=== PATIENT | male | born 1945 | race Caucasian/White ===

== ENCOUNTER → 2018-06-03 | Day surgery (SDC) | payer MEDICARE, OTHER ==
[2018-05-31 15:57] LABS: BASOPHILS % 0.3 % (0.0-1.0); EOSINOPHILS # (AUTO) 0.3 (0.0-0.4); EOSINOPHILS % 4.5 % (0.0-6.0); HEMATOCRIT 40.9 % (38.2-49.6); HEMOGLOBIN 14.5 g/dL (14.0-18.0); LYMPHOCYTES # (AUTO) 2.1 (1.0-3.2); LYMPHOCYTES % 35.2 % (18.0-39.1); MEAN CORPUSCULAR HEMOGLOBIN 38.7 pg (28-32); MEAN CORPUSCULAR HGB CONC 35.5 g/dL (31-35); MEAN CORPUSCULAR VOLUME 109.1 fL (81-99); MONOCYTES # (AUTO) 0.5 (0.2-0.8); MONOCYTES % 8.7 % (4.4-11.3); NEUTROPHILS # (AUTO) 3.1 (2.1-6.9); PLATELET COUNT 166 x10e3/uL (140-360); RED BLOOD COUNT 3.75 x10e6/uL (4.3-5.7); RED CELL DISTRIBUTION WIDTH 13.5 % (11.7-14.4)
[2018-05-31 16:04] LABS: INR 0.89; PROTHROMBIN TIME 12.9 seconds (11.9-14.5)
[2018-05-31 16:17] LABS: ALBUMIN 3.8 g/dL (3.5-5.0); ALBUMIN/GLOBULIN RATIO 1.2 (0.8-2.0); ANION GAP 15.5 mmol/L (8-16); CALCIUM 9.6 mg/dL (8.4-10.2); CHOL/HDL RATIO 4.3 (3.9-4.7); CREATININE, SERUM 1.35 mg/dL (0.72-1.25); POTASSIUM 4.5 mmol/L (3.5-5.1)
[2018-06-03] VITALS (12 sets, daily range): BP systolic 104–135; BP diastolic 67–88
[~2018-06-03] VITALS: Ht 177.8 cm; Wt 99.8 kg
[~2018-06-03] MED LIST: ALLOPURINOL300 MG PO; ASPIRIN 325 MG TAB ONE; COMBIVIR TABLE1 EACH PO; ENTRESTO PO; FENTANYL CITRATE/PF 100MCG/2 ML INJ ONE; HEPARIN SOD/SOD CHLORIDE 2,000 ML ONE; INTELENCE200 MG PO; IOPAMIDOL 370 MG/ML 200 ML INFUS..BTL INJ ONE; KEFLEX500 MG PEG; KEFLEX500 MG PO; LASIX40 MG PO; LEVAQUIN500 MG PO; LIDOCAINE HCL 2% LOCAL 20 ML VIAL ONE; LIPITOR20 MG PO; LISINOPRIL2.5 MG PO; LOPID600 MG PO; LOVAZA1 GM PO; METOPROLOL SUCC25 MG PO; MIDAZOLAM HCL 2 MG/2 ML VIAL ONE; MULTI VITAMIN PO; NEXIUM20 MG PO; NORVIR100 MG PO; POTASSIUM CHLO20 ME1 PO; PREDNISONE10 MG PO; PREDNISONE20 MG PO; PREDNISONE5 MG; ROPINIROLE HC0.25 MG PO; SODIUM CHLORIDE 0.9% 1000ML 1,000 ML ONE; TICAGRELOR 90 MG TABLET ONE; VALACYCLOVIR500 MG PO; VERAPAMIL HCL 2.5 MG/ML 2 ML VIAL ONE; [UNRECOGNIZED DRUG - OTHER] PO
--- OUTSIDE RECORDS SUMMARY | 2018-06-03 09:27 | XMS REPORT ---
Author Author Admin, Karthaus Organization [facility] Address Unknown Phone Unavailable Allergies, Adverse Reactions, Alerts Allergy Name Reaction Description Start Date Severity Status Provider HLA [id number] Positive Critical Active Lexigeorgette Bernard Conditions or Problems Problem Name Problem Code Onset Date Status Entry Date Provider Comment Standard Description Annotate Screening for venereal disease V74.5 Active Shanta ROWLEY Screening examination for venereal disease Elevated prostate specific antigen PSA 790.93 Active Shanta WILKERSONP Elevated prostate specific antigen [PSA] CHF 428.0 Active Shanta Li TRIM OPERATOR Congestive heart failure, unspecified L ventricle severely impaired with EF < 20% R ventricular pacemaker Gout 274.9 Active Shanta Li TRIM OPERATOR Gout, unspecified Preventive health care V70.0 Active Shanta Li TRIM OPERATOR Routine general medical examination at a health care facility Screening for hepatitis C V73.89 Active Shanta Limary ROWLEY Screening examination for other specified viral diseases Nephrolithiasis, hx of 592.0 Active Shanta Li TRIM OPERATOR Calculus of kidney Pacemaker, 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 Shanta WILKERSONP Cardiac pacemaker in situ DIETARY SURVEILLANCE AND COUNSELING V65.3 Active Shanta ROWLEY Dietary surveillance and counseling OBESITY 278.00 Active Shanta WILKERSONP Obesity, unspecified AMBLYOPIA, LEFT 368.00 01/03/2012 Active [facility] Amblyopia, unspecified ASTIGMATISM 367.20 01/03/2012 Active [facility] Astigmatism, unspecified CATARACT, NUCLEAR, BILATERAL 366.04 01/03/2012 Active [facility] Nuclear cataract MILD - No tx needed HYPEROPIA 367.0 01/03/2012 Active [facility] Hypermetropia PRESBYOPIA 367.4 01/03/2012 Active [facility] Presbyopia 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 Lexi Bernard Unspecified hearing loss HIV INFECTION/AIDS 042 1994 Active Lexi Bernard Human immunodeficiency virus [HIV] disease HYPERLIPIDEMIA 272.4 Active [facility] Other and unspecified hyperlipidemia HYPERTENSION 401.1 Active [facility] Benign essential hypertension Rule out CMV RETINITIS 01/03/2012 Correction Kranthi Lai MD Chorioretinitis, 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 Depression 311 Inactive Shanta WILKERSONP Depressive disorder, not elsewhere classified Depression ICD-311 Inactive Shanta WILKERSONP CHF 428.0 Inactive Shanta WILKERSONP Congestive heart failure, unspecified Screening for venereal disease V74.5 Inactive Shanta WILKERSONP Screening examination for venereal disease Screening for venereal disease ICD-V74.5 Inactive Shanta WILKERSONP Screening for vitamin D deficiency V77.99 Inactive Shanta WILKERSONP Screening for other and unspecified endocrine, nutritional, metabolic, and immunity disorders Screening for vitamin D deficiency ICD-V77.99 Inactive Shanta WILKERSONP RENAL INSUFFICIENCY ICD-593.9 Inactive Shanta WILKERSONP CHOLELITHIASIS ICD-574.20 Inactive Shanta WILKERSONP 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 Kranthi Lai MD 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 Inactive Shanta WILKERSONP NEPHROLITHIASIS ICD-592.0 Inactive Shanta Li TRIM OPERATOR PSA, INCREASED 790.93 2007 Inactive Shanta WILKERSONP Elevated prostate specific antigen [PSA] PSA, INCREASED ICD-790.93 Inactive Shanta WILKERSONP RENAL INSUFFICIENCY 593.9 Resolved Shanta Li TRIM OPERATOR Unspecified disorder of kidney and ureter CHOLELITHIASIS 574.20 Resolved Shanta Li TRIM OPERATOR Calculus of gallbladder without mention of cholecystitis, without mention of obstruction HERPES ZOSTER [facility] PARAPARESIS 053.9 11/2007 Resolved Shanta Li TRIM OPERATOR Herpes zoster without mention of complication NEPHROLITHIASIS 592.0 2008 Resolved Shanta WILKERSONP Calculus of kidney Medication List Medication Instructions Start Date Stop Date Generic Name NDC Status Provider Patient Instruction ATORVASTATIN CALCIUM 10 MG ORAL TABLET 1 tab By Mouth Every Day ATORVASTATIN CALCIUM 01320858199 Active Shanta WILKERSONP Active ENTRESTO 49-51 MG ORAL TABLET 1 tab By Mouth Every Day SACUBITRIL-VALSARTAN 96350932615 Active Shanta WILKERSONP Active ALLOPURINOL 300 MG ORAL TABLET 1 by mouth every day ALLOPURINOL 56695524156 Active Shanta WILKERSONP Active METOPROLOL SUCCINATE ER 25 MG ORAL TABLET EXTENDED RELEASE 24 HOUR 1 tab by mouth daily METOPROLOL SUCCINATE 62885428851 Active Shanta WILKERSONP Active REQUIP 0.25 MG ORAL TABLET 2 tabs By Mouth take at bedtime ROPINIROLE HCL 39905609003 Active Shanta Li TRIM OPERATOR Active FUROSEMIDE 40 MG ORAL TABLET 1 by mouth every am FUROSEMIDE 63139466393 Active Shanta Li TRIM OPERATOR Active LOVAZA 1 GM ORAL CAPSULE Take 2 capsules by mouth twice daily [id number]-[id number] ETHYL ESTERS 02039390459 Active Shanta Li TRIM OPERATOR Active INTELENCE 200 MG ORAL TABLET 1 tab By Mouth Twice a Day ETRAVIRINE 49468543556 Active Shanta WILKERSONP Active COMBIVIR 150-300 MG ORAL TABLET take 1/2 tablet By Mouth Every Day LAMIVUDINE-ZIDOVUDINE 70168178657 Active Shanta WILKERSONP Active VALACYCLOVIR HCL 500 MG ORAL TABLET 1 By Mouth Every Day VALACYCLOVIR HCL 27569448209 Active Shanta WILKERSONP Active INVIRASE 500 MG ORAL TABLET 2 By Mouth Twice a Day SAQUINAVIR MESYLATE 29416516582 Active Shanta WILKERSONP Active NORVIR 100 MG ORAL TABLET 1 By Mouth Every Day Ritonavir 62262255993 Active Shanta ROWLEY Active METOPROLOL SUCCINATE ER 25 MG ORAL TABLET EXTENDED RELEASE 24 HOUR 1 tab by mouth daily METOPROLOL SUCCINATE ER 25 MG ORAL TABLET EXTENDED RELEASE 24 HOUR METOPROLOL SUCCINATE Inactive LIPITOR 10 MG ORAL TABLET 1 by mouth every pm LIPITOR 10 MG ORAL TABLET 560765 ATORVASTATIN CALCIUM Inactive LOPID 600 MG ORAL TABLET 1 tab By Mouth Twice a Day LOPID 600 MG ORAL TABLET 862242 GEMFIBROZIL Inactive LOVAZA 1 GM ORAL CAPSULE 2 tabs By Mouth Twice a Day LOVAZA 1 GM ORAL CAPSULE 189244 LVEAT-9-IQAA ETHYL ESTERS Inactive LISINOPRIL 2.5 MG ORAL TABLET 1 By Mouth Every Day LISINOPRIL 2.5 MG ORAL TABLET 627851 LISINOPRIL Inactive NEXIUM 20 MG ORAL CAPSULE DELAYED RELEASE 1 by mouth daily NEXIUM 20 MG ORAL CAPSULE DELAYED RELEASE 516277 ESOMEPRAZOLE MAGNESIUM Inactive EPIVIR 150 MG ORAL TABLET 1 By Mouth Every Day EPIVIR 150 MG ORAL TABLET 322576 LAMIVUDINE Inactive METOPROLOL SUCCINATE ER 25 MG ORAL TABLET EXTENDED RELEASE 24 HOUR 1 tab by mouth daily METOPROLOL SUCCINATE 93724413015 No Longer Active Shanta WILKERSONP Active LIPITOR 10 MG ORAL TABLET 1 by mouth every pm ATORVASTATIN CALCIUM 92941165660 No Longer Active Shanta WILKERSONP Active LOPID 600 MG ORAL TABLET 1 tab By Mouth Twice a Day GEMFIBROZIL 84227469209 No Longer Active Shanta WILKERSONP Active LOVAZA 1 GM ORAL CAPSULE 2 tabs By Mouth Twice a Day QQYZA-9-IBGS ETHYL ESTERS 99598394721 No Longer Active Marcelle Baig Active TRICOR 145 MG ORAL TABLET 1 By Mouth Every Day FENOFIBRATE 15568896821 No Longer Active Shanta WILKERSONP Active LISINOPRIL 2.5 MG ORAL TABLET 1 By Mouth Every Day LISINOPRIL 54789759380 No Longer Active Shanta WILKERSONP Active NEXIUM 20 MG ORAL CAPSULE DELAYED RELEASE 1 by mouth daily ESOMEPRAZOLE MAGNESIUM 01048830629 No Longer Active Shanta WILKERSONP Active EPIVIR 150 MG ORAL TABLET 1 By Mouth Every Day LAMIVUDINE 61842682288 No Longer Active Shanta WILKERSONP Active Advance Directives Directive Description Start Date POWER OF HOUSEKEEPER Immunizations Vaccine Administration Date Value Standard Description PEDIATRIC PNEUMOCOCCAL VACCINE ([id number]) #1 given pneumococcal conjugate vaccine, 13 valent Tetanus toxoid, reduced diphtheria toxoid and acellular Pertussis vaccine, absorbed (TdaP) given given tetanus toxoid, reduced diphtheria toxoid, and acellular pertussis vaccine, adsorbed pneumococcal immunization administered given pneumococcal polysaccharide vaccine, 23 valent influenza immunization (Flu Vax) has been administered transcribed from official record influenza virus vaccine, unspecified formulation dT (Diphtheria and Tetanus) immunization for children, #1 transcribed from official record Td(adult) unspecified formulation pneumococcal immunization administered transcribed from official record pneumococcal polysaccharide vaccine, 23 valent H1N1 Swine flu vaccine #1 transcribed from official record Novel [id number], all formulations influenza immunization (Flu Vax) has been administered transcribed from official record influenza virus vaccine, unspecified formulation Vital Signs Date Name Value Unit Range Description blood pressure, diastolic 70 mm[Hg] BP gutierrez blood pressure, systolic 105 mm[Hg] BP sys height E&M 70 [in_us] Bdy height pulse rate E&M 78 /min Heart rate temperature E&M 97.9 [degF] Body temperature weight E&M 220 [lb_av] Weight Measured blood pressure, diastolic 66 mm[Hg] BP gutierrez blood pressure, systolic 103 mm[Hg] BP sys height E&M 70 [in_us] Bdy height pulse rate E&M 76 /min Heart rate temperature E&M 98.0 [degF] Body temperature weight E&M 226 [lb_av] Weight Measured Diagnostic Results Date Name Value Unit Range Description Lab Report: Comp. Metabolic Panel (14), Urinalysis, Routine, Microscopic ... - Urinalysis pH, urine, semiquantitative 6.0 5.0-7.5 Lab Report: CD4/CD8 Ratio Profile, Comp. Metabolic Panel (14), Lipid Jenkins ... - Chemistry urea nitrogen, blood 24 mg/dL 8-27 Lab Report: CD4/CD8 Ratio Profile, Lipid Panel, RNA, Real Time PCR (Grap ... - Hematology T-helper cells (CD4) as percent of blood lymphocytes 24.5 % 30.8-58.5 Lab Report: CD4/CD8 Ratio Profile, Comp. Metabolic Panel (14), Lipid Jenkins ... - Chemistry creatinine, serum 1.22 mg/dL 0.76-1.27 Lab Report: CD4/CD8 Ratio Profile, Lipid Panel, RNA, Real Time PCR (Grap ... - Hematology mean corpuscular volume, RBC 110 fL 79-97 Lab Report: CD4/CD8 Ratio Profile, Lipid Panel, RNA, Real Time PCR (Grap ... - Chemistry triglyceride, serum, fasting 272 mg/dL 0-149 Lab Report: Lipid Panel, Panel [id number], Panel [id number], PSA, Serum (Serial ... - Serology HIV-1/HIV-2 Ab, serum Repeatedly Reactive Non Reactive Lab Report: CD4/CD8 Ratio Profile, Comp. Metabolic Panel (14), Lipid Jenkins ... - Chemistry protein, total, serum 6.6 g/dL 6.0-8.5 Lab Report: CD4/CD8 Ratio Profile, Lipid Panel, RNA, Real Time PCR (Grap ... - Chemistry HDL cholesterol, serum 30 mg/dL >39 Lab Report: Comp. Metabolic Panel (14), Urinalysis, Routine, Microscopic ... - Urinalysis mucus on urinalysis Present Not Estab. glucose, urine, semiquantitative Negative Negative Lab Report: CD4/CD8 Ratio Profile, Comp. Metabolic Panel (14), Lipid Jenkins ... - Chemistry hepatitis B surface antigen Negative Negative Lab Report: Comp. Metabolic Panel (14), Creatinine Clearance, Protein To ... - Chemistry creatinine clearance, urine 86 mL/min (97-137) Lab Report: CD4/CD8 Ratio Profile, Lipid Panel, RNA, Real Time PCR (Grap ... - Hematology monocytes as percent of blood leukocytes 8 % Not Estab. Lab Report: CD4/CD8 Ratio Profile, Comp. Metabolic Panel (14), Lipid Jenkins ... - Hematology Quantiferon Gold TB blood test for tuberculosis screening Negative Negative Lab Report: CD4/CD8 Ratio Profile, Lipid Panel, RNA, Real Time PCR (Grap ... - Chemistry prostate specific antigen 4.3 ng/mL 0.0-4.0 Lab Report: CD4/CD8 Ratio Profile, Lipid Panel, RNA, Real Time PCR (Grap ... - Hematology T-suppressor cells (CD8) as percent of blood lymphocytes 41.9 % 12.0-35.5 Lab Report: Comp. Metabolic Panel (14), Urinalysis, Routine, Microscopic ... - Urinalysis bacteria, urine microscopy None seen None seen/Few Lab Report: Protein Total, Qn, 24-Hr Urine - Urinalysis protein, total, urine, 24 hour 226.5 mg/24h 30.0-150.0 Lab Report: CD4/CD8 Ratio Profile, Comp. Metabolic Panel (14), Lipid Jenkins ... - Chemistry albumin, serum 4.4 g/dL 3.5-4.8 Lab Report: Comp. Metabolic Panel (14), Urinalysis, Routine, Microscopic ... - Urinalysis urobilinogen, urine, semiquantitative (dipstick) 0.2 0.0-1.9 Lab Report: CD4/CD8 Ratio Profile, Comp. Metabolic Panel (14), Lipid Jenkins ... - Chemistry calcium, serum 9.2 mg/dL 8.6-10.2 Internal Correspondence: Pre-Visit Planning: F/U 02/15/17@10:15AM-confirmed - CC care clinical team lead #1, name [facility]-Ulises Wiseman MD / LIZZETTE Hendricks FNP / LIZZETTE Storm FNP / LIZZETTE Diaz MD / Edwige Vallejo MA Lab Report: Comp. Metabolic Panel (14), Urinalysis, Routine, Microscopic ... - Urinalysis WBC urine on microscopy >30 /hpf {Cells}/[HPF] 0 - 5 Lab Report: CD4/CD8 Ratio Profile, Lipid Panel, RNA, Real Time PCR (Grap ... - Hematology lymphocytes as percent of blood leukocytes 31 % Not Estab. Lab Report: CD4/CD8 Ratio Profile, Comp. Metabolic Panel (14), RNA, Real ... - Serology rapid plasma reagin antibody, serum Non Reactive Non Reactive Lab Report: Chlamydia/GC Amplification - Lab chlamydia DNA probe Negative Negative Lab Report: CD4/CD8 Ratio Profile, Comp. Metabolic Panel (14), Lipid Jenkins ... - Chemistry sodium, serum 144 mmol/L 134-144 Lab Report: Chlamydia/GC Amplification - Microbiology Neisseria gonorrhoeae DNA probe Negative Negative Lab Report: CD4/CD8 Ratio Profile, Comp. Metabolic Panel (14), Lipid Jenkins ... - Chemistry hemoglobin A1C, blood, as % of total hemoglobin 4.9 % 4.8-5.6 Lab Report: Comp. Metabolic Panel (14), Creatinine Clearance, Protein To ... - Chemistry creatinine, urine, 24 hour 2034.5 mg/24h (1000.0-2000.0) Lab Report: CD4/CD8 Ratio Profile, Comp. Metabolic Panel (14), Lipid Jenkins ... - Chemistry alkaline phosphatase, serum 67 U/L 39-117 Lab Report: CD4/CD8 Ratio Profile, Lipid Panel, RNA, Real Time PCR (Grap ... - Hematology T-helper cells (CD4) count 368 /UL uL 359-1519 Lab Report: Lipid Panel, Panel [id number], Panel [id number], PSA, Serum (Serial ... - Genetics/fertility HIV-1 gp41 antibody, serum Present Lab Report: CD4/CD8 Ratio Profile, Comp. Metabolic Panel (14), Lipid Jenkins ... - Chemistry bilirubin, serum, total 0.7 mg/dL 0.0-1.2 Lab Report: Comp. Metabolic Panel (14), Creatinine Clearance, Protein To ... - Chemistry creatinine, random, urine 123.3 mg/dL (22.0-328.0) Lab Report: CD4/CD8 Ratio Profile, Lipid Panel, RNA, Real Time PCR (Grap ... - Hematology neutrophils as percent of blood leukocytes 52 % Not Estab. Lab Report: RNA, Real Time PCR (Graph) - Chemistry HIV-1 RNA (log 10) 1.903 [id number]/mL Lab Report: CD4/CD8 Ratio Profile, Comp. Metabolic Panel (14), Lipid Jenkins ... - Chemistry potassium, serum 4.2 mmol/L 3.5-5.2 Lab Report: CD4/CD8 Ratio Profile, Comp. Metabolic Panel (14), Lipid Jenkins ... - Serology toxoplasma gondii antibody, IgG <3.0 0.0-7.1 Lab Report: Comp. Metabolic Panel (14), Urinalysis, Routine, Microscopic ... - Urinalysis urine color Yellow Yellow Lab Report: CD4/CD8 Ratio Profile, Lipid Panel, RNA, Real Time PCR (Grap ... - Chemistry absolute CD8 629 109-897 Lab Report: Comp. Metabolic Panel (14), Urinalysis, Routine, Microscopic ... - Urinalysis cast type, urinalysis Hyaline casts N/A Lab Report: CD4/CD8 Ratio Profile, Comp. Metabolic Panel (14), Lipid Jenkins ... - Serology hepatitis C antibody, serum <0.1 0.0-0.9 Lab Report: CD4/CD8 Ratio Profile, Lipid Panel, RNA, Real Time PCR (Grap ... - Hematology lymphocyte count, blood, automated 1.5 X10E3/UL 10*3/mm3 0.7-3.1 Lab Report: Comp. Metabolic Panel (14), Urinalysis, Routine, Microscopic ... - Urinalysis epithelial cells, urine 0-10 /[LPF] 0 - 10 bilirubin, urine Negative Negative Lab Report: CD4/CD8 Ratio Profile, Lipid Panel, RNA, Real Time PCR (Grap ... - Serology HIV-1RNA, serum, by PCR, quantitative <20 copies/mL {Copies}/mL Lab Report: CD4/CD8 Ratio Profile, Comp. Metabolic Panel (14), Lipid Jenkins ... - Chemistry chloride, serum 103 mmol/L 96-106 Lab Report: CD4/CD8 Ratio Profile, Lipid Panel, RNA, Real Time PCR (Grap ... - Hematology erythrocyte (RBC) count 3.80 X10E6/UL 10*6/mm3 4.14-5.80 Lab Report: CD4/CD8 Ratio Profile, Comp. Metabolic Panel (14), Lipid Jenkins ... - Chemistry Estimated Glomerular Filtration Rate (calc) 59 mL/min/1.73m2 >59 Lab Report: CD4/CD8 Ratio Profile, Lipid Panel, RNA, Real Time PCR (Grap ... - Hematology platelet count 162 X10E3/UL 10*3/mm3 150-379 Lab Report: Comp. Metabolic Panel (14), Urinalysis, Routine, Microscopic ... - Urinalysis appearance, urine Cloudy Clear Lab Report: CD4/CD8 Ratio Profile, Lipid Panel, RNA, Real Time PCR (Grap ... - Hematology red blood cell distribution width 13.5 % 12.3-15.4 Lab Report: Comp. Metabolic Panel (14), Urinalysis, Routine, Microscopic ... - Chemistry specific gravity, body fluid 1.024 1.005-1.030 Lab Report: CD4/CD8 Ratio Profile, Comp. Metabolic Panel (14), Lipid Jenkins ... - Chemistry albumin/globulin ratio, serum 2.0 1.2-2.2 Lab Report: CD4/CD8 Ratio Profile, Lipid Panel, RNA, Real Time PCR (Grap ... - Hematology eosinophils as percent of blood leukocytes 9 % Not Estab. Lab Report: CD4/CD8 Ratio Profile, Comp. Metabolic Panel (14), Lipid Jenkins ... - Microbiology hepatitis A antibody, total Positive Negative Lab Report: CD4/CD8 Ratio Profile, Lipid Panel, RNA, Real Time PCR (Grap ... - Chemistry Absolute Neutrophils 2.5 X10E3/UL 10*3/uL 1.4-7.0 Lab Report: CD4/CD8 Ratio Profile, Lipid Panel, RNA, Real Time PCR (Grap ... - Hematology basophil count, absolute 0.0 x10E3/uL 0.0-0.2 Lab Report: CD4/CD8 Ratio Profile, Comp. Metabolic Panel (14), Lipid Jenkins ... - Chemistry alanine aminotransferase (SGPT), serum 19 U/L 0-44 Lab Report: CD4/CD8 Ratio Profile, Lipid Panel, RNA, Real Time PCR (Grap ... - Chemistry LDL cholesterol, serum 65 mg/dL 0-99 Lab Report: Lipid Panel, Panel [id number], Panel [id number], PSA, Serum (Serial ... - Serology HIV-1 antibody, western blot, serum Positive Lab Report: CD4/CD8 Ratio Profile, Lipid Panel, RNA, Real Time PCR (Grap ... - Chemistry CD4/CD8 ratio 0.58 0.92-3.72 Lab Report: Comp. Metabolic Panel (14), Urinalysis, Routine, Microscopic ... - Urinalysis casts, urine Present /[LPF] None seen Lab Report: CD4/CD8 Ratio Profile, Lipid Panel, RNA, Real Time PCR (Grap ... - Chemistry cholesterol, serum 149 mg/dL 100-199 Office Visit: Adult Followup Room #5 Ready - Hematology T-helper cells (CD4) count, lowest absolute value 6 Lab Report: Comp. Metabolic Panel (14), Urinalysis, Routine, Microscopic ... - Basic Occult Blood, urine 3+ Negative Lab Report: CD4/CD8 Ratio Profile, Lipid Panel, RNA, Real Time PCR (Grap ... - Hematology mean corpuscular hemoglobin concentration, RBC 34.8 G/DL % 31.5-35.7 hemoglobin, blood 14.6 g/dL 13.0-17.7 Lab Report: Comp. Metabolic Panel (14), Urinalysis, Routine, Microscopic ... - Urinalysis leukocyte esterase, urine, by dipstick 3+ Negative urinalysis, microscopic examination See below: Lab Report: CD4/CD8 Ratio Profile, Lipid Panel, RNA, Real Time PCR (Grap ... - Hematology leukocyte count, blood 4.8 X10E3/UL 10*3/mm3 3.4-10.8 Lab Report: CD4/CD8 Ratio Profile, Comp. Metabolic Panel (14), Urinalysi ... - Urinalysis Crystal Type, Urine Amorphous Sediment N/A Lab Report: Comp. Metabolic Panel (14), Urinalysis, Routine, Microscopic ... - Urinalysis protein, urine, semiquantitative (dipstick) 2+ Negative/Trace Lab Report: CD4/CD8 Ratio Profile, Lipid Panel, RNA, Real Time PCR (Grap ... - Hematology hematocrit, blood 41.9 % 37.5-51.0 Lab Report: CD4/CD8 Ratio Profile, Comp. Metabolic Panel (14), Lipid Jenkins ... - Chemistry globulin, serum 2.2 1.5-4.5 Lab Report: CD4/CD8 Ratio Profile, Comp. Metabolic Panel (14), Urinalysi ... - Urinalysis urine crystals, microscopic Present /[HPF] N/A Lab Report: CD4/CD8 Ratio Profile, Comp. Metabolic Panel (14), RNA, Real ... - Chemistry vitamin D 25-hydroxy, serum 32.8 ng/mL 30.0-100.0 Lab Report: CD4/CD8 Ratio Profile, Lipid Panel, RNA, Real Time PCR (Grap ... - Chemistry very low density lipoproteins 54 mg/dL 5-40 Internal Correspondence: Pre-Visit Planning 07/08/2014 @ 4:15pm Confirmed. - Other List of providers caring for patient Lupe Wiseman MD, Washington Velazquez MD, Kanchan Smith MD, Jen WILKERSONP, Skyler Aguilar TRIM OPERATOR, Forrest Montes HISTORIC SITES SUPERVISOR-C, Kareen Woo MA, Agustina Dunn MA, Tisha Smith MA, Ynes Pina MA, Marcelle Herndon MA, Esau Baig MA, Bang Randall MA, Serena Hobbs [facility]. Lab Report: CD4/CD8 Ratio Profile, Lipid Panel, RNA, Real Time PCR (Grap ... - Hematology basophils as percent of blood leukocytes 0 % Not Estab. Lab Report: Protein Total, Qn, 24-Hr Urine - Chemistry protein, total urine random 15.1 mg/dL 0.0-15.0 Lab Report: Comp. Metabolic Panel (14), Urinalysis, Routine, Microscopic ... - Urinalysis yeast identified on urinalysis Present None seen Lab Report: CD4/CD8 Ratio Profile, Lipid Panel, RNA, Real Time PCR (Grap ... - Hematology monocyte count, blood, automated 0.4 X10E3/UL 10*3/uL 0.1-0.9 Lab Report: CD4/CD8 Ratio Profile, Comp. Metabolic Panel (14), Lipid Jenkins ... - Chemistry urea nitrogen/creatinine ratio, serum 20 10-24 Lab Report: CD4/CD8 Ratio Profile, Lipid Panel, RNA, Real Time PCR (Grap ... - Chemistry immature granulocytes, percentage of total cells, blood 0 % Not Estab. Lab Report: CD4/CD8 Ratio Profile, Comp. Metabolic Panel (14), Lipid Jenkins ... - Genetics/fertility eGFR if 68 mL/min/1.73m2 >59 Lab Report: CD4/CD8 Ratio Profile, Comp. Metabolic Panel (14), Lipid Jenkins ... - Chemistry carbon dioxide, venous blood 22 mmol/L 18-29 Lab Report: Comp. Metabolic Panel (14), Urinalysis, Routine, Microscopic ... - Chemistry RBC, Urine 4-10 /hpf /[HPF] 0 - 3 Lab Report: GenoSure(R) MG, Quant, RNA PCR, GenoSure(R) MG - Serology HIV genotype result We are unable to determine the genotype of this sample due to Lab Report: CD4/CD8 Ratio Profile, Comp. Metabolic Panel (14), Lipid Jenkins ... - Serology hepatitis B core antibody, total Negative Negative Lab Report: CD4/CD8 Ratio Profile, Comp. Metabolic Panel (14), Lipid Jenkins ... - Hematology T-helper cells (CD4) to T-suppressor cells (CD8) ratio 61.3 % 12.0-35.5 Lab Report: Comp. Metabolic Panel (14), Urinalysis, Routine, Microscopic ... - Urinalysis ketones, urine, by test strip Negative Negative Lab Report: CD4/CD8 Ratio Profile, Lipid Panel, RNA, Real Time PCR (Grap ... - Hematology Eosinophil Absolute Count 0.4 X10E3/UL 10*3/uL 0.0-0.4 mean corpuscular hemoglobin, RBC 38.4 pg 26.6-33.0 Lab Report: Comp. Metabolic Panel (14), Urinalysis, Routine, Microscopic ... - Chemistry nitrate, urine Negative Negative Lab Report: CD4/CD8 Ratio Profile, Comp. Metabolic Panel (14), Lipid Jenkins ... - Chemistry blood glucose, random 128 mg/dL 65-99 Lab Report: CD4/CD8 Ratio Profile, Comp. Metabolic Panel (14), Lipid Jenkins ... - Serology hepatitis B surface antibody Reactive Lab Report: CD4/CD8 Ratio Profile, Comp. Metabolic Panel (14), Lipid Jenkins ... - Chemistry aspartate aminotransferase (SGOT), serum 27 U/L 0-40 Lab Report: Comp. Metabolic Panel (14) - Chemistry estimated glomerular filtration rate 40 mL/min >59 Encounters Date Encounter Provider Code Facility 12:45:11 CDT Ofc Vst, Est Level IV Shanta WILKERSONP CPT-05917 [facility] 06:29:34 REVERSE ENGINEER Ofc Vst, Est Level IV Shanta WILKERSONP CPT-74695 [facility] 14:27:48 CDT Ofc Vst, Est Level IV Shanta WILKERSONP CPT-04329 [facility] 07:25:20 CDT Ofc Vst, Est Level IV Shanta Li TRIM OPERATOR CPT-21843 [facility] 21:41:56 REVERSE ENGINEER Ofc Vst, Est Level IV Shanta WILKERSONP CPT-07670 [facility] 12:33:11 CDT Ofc Vst, Est Level IV Shanta WILKERSONP CPT-59187 [facility] 16:26:09 REVERSE ENGINEER Ofc Vst, Est Level IV Shanta WILKERSONP CPT-85817 [facility] 11:21:29 CDT Ofc Vst, Est Level IV Shanta WILKERSONP CPT-98136 [facility] 11:43:59 CDT Ofc Vst, Est Level III Shanta WILKERSONP CPT-87584 [facility] 11:01:12 CDT Ofc Vst, Est Level IV Shanta Li TRIM OPERATOR CPT-03668 [facility] 17:01:43 REVERSE ENGINEER Ofc Vst, Est Level IV Shanta Li TRIM OPERATOR CPT-73916 [facility] 18:16:42 CDT Ofc Vst, Est Level IV Shanta WILKERSONP CPT-07143 [facility] 10:50:18 CDT Ofc Vst, Est Level IV Shanta Li TRIM OPERATOR CPT-96279 [facility] 12:09:48 CDT Ofc Vst, Est Level IV Shanta Li TRIM OPERATOR CPT-42729 [facility] 12:52:09 CDT Ofc Vst, Est Level IV Shanta Li TRIM OPERATOR CPT-94844 [facility] 18:18:31 REVERSE ENGINEER Ofc Vst, Est Level IV Shanta Li TRIM OPERATOR CPT-92046 [facility] Procedures Code Procedure Name Date Entry Date Standard Description CPT-01055 TDAP 11:01:15 CDT CPT-99792 Prevnar (PCV13) IM 11:01:15 CDT CPT-12963 Xray - Chest - PA & Lat - InHouse 11:58:06 REVERSE ENGINEER CPT-71760 Nutrition Re-assessment Ind (15 Min) - 02386 10:54:17 REVERSE ENGINEER CPT-80364 Dispensing Visit (UNLIVSTED OPHTHALMOLOGICAL SERVICE/PROCEDURE) 10:32:51 CDT CPT-15173 Est Patient Intermediate Opth - 51631 11:22:46 CDT CPT-51336 Est Patient Intermediate Opth - 99214 10:44:20 CDT CPT-05737 Nutrition Re-assessment Ind (15 Min) - 91429 13:43:33 CDT CPT-73561 Pneumovax Vaccine 10:50:18 CDT CPT-06982 Nutrition Re-assessment Ind (15 Min) - 11284 11:08:49 REVERSE ENGINEER CPT-49772 Nutrition Initial Assessment Ind (15 Min) - 93044 17:57:40 REVERSE ENGINEER CPT-13503 Venipuncture 18:18:31 REVERSE ENGINEER
--- NOTE | 2018-06-03 14:10 | NUR ---
1410 received pt in car [employer] recovery rm #[id number] Received report from Loree JIMENEZ [facility] Dr Felipe. TR Band to right no s/s bleeding Radial pulse adequate. Ordered diet tray at bedside Discussed POC and has copies. Aware of importance of followup care. Iv infusing well w/o s/s infiltration. Back to baseline PEERLA Resp shallow and regular 98% RA . Denies necessity to defecate or urinate Bilateral femoral pulses present.Tr band titration scheduled 1530
--- NOTE | 2018-06-03 14:49 | Operative Report ---
DATE OF PROCEDURE: June 03, 2018 INDICATIONS: Coronary artery disease, abnormal stress test with apical ischemia. PROCEDURES PERFORMED: 1. Left heart catheterization, selective coronary angiography, left ventriculography. 2. Atherectomy and drug-eluting stent placement to the mid left anterior descending artery. 3. Deployment of right wrist transradial band. COMPLICATIONS: None. RECOMMENDATIONS: Dual antiplatelet therapy for at least 6 months. Access obtained in the right radial artery. A 6-German sheath was placed. Diagnostic coronary angiogram revealed patent left main, left anterior descending and proximally was widely patent. Mid left anterior descending artery at the origin of a large diagonal artery 80% stenosis. Circumflex and right coronary artery had mild 10% to 20% stenosis. LV ejection fraction 20% to 25%. LV end-diastolic pressure of 8. No gradient across the aortic valve on pull back. Decision was made to intervene on the left anterior descending artery. The patient received 10,000 units of oral Brilinta for anticoagulation. The left main was cannulated using an XP LAD 3.56-German guiding catheter. A short wire was advanced across the lesion which was exchanged to a ViperWire. Orbital atherectomy of the left anterior descending artery was performed following which balloon angioplasty to 2.5 mm balloon and a single 2.75 x 20 mm drug-eluting stent was deployed, 18 atmospheres with excellent end result with zero percent ____ stenosis. AIDAN-3 flow. No complications. Guide sheath removed. TR band applied. Patient discharged home same day. Job#: [id number]
--- NOTE | 2018-06-03 15:30 | NUR ---
1530 Tr band titration initiated . -2cc ,no s/s bleeding radial pulse adequate, positive 10cc 1545 Tr band titration continued -2cc remain in balloon,adequate radial pulse positive 8cc 1600 Tr band titration continued ,-2cc positive 6cc,no noted ooze ,+2cc with positive 8cc in balloon, positive radial pulse 1630 Tr band titration continued,-4cc positive 4cc,no noted ooze,+4cc ,positive radial pulse. 1700 Tr band completed dc home 2x2 wiht tegederm and coban dressing Iv removed. site with 2x2 dressing and coban dressing Assist to bath room to car per wc stable NO bleeding an div out w/o s/s infiltration. is driving.Has copies of dc papers.
== END | disposition home or self-care (01) ==
LOC: CATH LAB 09:25
PROVIDERS: ATTEND Internal Medicine Interventional Cardiology
DX: I25.118 Atherosclerotic heart disease of native coronary artery with other forms of angina pectoris (principal); I50.23 Acute on chronic systolic (congestive) heart failure; Z21 Asymptomatic human immunodeficiency virus [HIV] infection status; E78.5 Hyperlipidemia, unspecified; R03.0 Elevated blood-pressure reading, without diagnosis of hypertension; Z01.812 Encounter for preprocedural laboratory examination; Z68.34 Body mass index [BMI] 34.0-34.9, adult; Z95.810 Presence of automatic (implantable) cardiac defibrillator
CPT/HCPCS: 93458; C9602; 36415; 80053; 80061; 85025; 85610; 92933; C1874; J2001; J2250; J7030; Q9967

== ENCOUNTER 2018-11-13 15:52 | Inpatient (IN) | payer MEDICARE, OTHER ==
[~2018-11-13] VITALS: Ht 177.8 cm; Wt 92.5 kg
[~2018-11-13 15:52] MED LIST changes: -ASPIRIN 325 MG TAB ONE; -FENTANYL CITRATE/PF 100MCG/2 ML INJ ONE; -HEPARIN SOD/SOD CHLORIDE 2,000 ML ONE; -IOPAMIDOL 370 MG/ML 200 ML INFUS..BTL INJ ONE; -LIDOCAINE HCL 2% LOCAL 20 ML VIAL ONE; -MIDAZOLAM HCL 2 MG/2 ML VIAL ONE; -SODIUM CHLORIDE 0.9% 1000ML 1,000 ML ONE; -TICAGRELOR 90 MG TABLET ONE; -VERAPAMIL HCL 2.5 MG/ML 2 ML VIAL ONE
--- OUTSIDE RECORDS SUMMARY | 2018-11-13 15:56 | XMS REPORT ---
Author Author Admin, [place] Organization [facility] Adult Medicine Address [address] [place] [address] Phone Allergies, Adverse Reactions, Alerts Allergy Name Reaction Description Start Date Severity Status Provider HLA [id number] Positive Critical Active Lexi Bernard Conditions or Problems Problem Name Problem Code Onset Date Status Entry Date Provider Comment Standard Description Annotate Cough 786.2 Active Shanta ROWLEY Cough Medication, long-term use V58.6 Active Shanta ROWLEY Long-term (current) drug use Screening for venereal disease V74.5 Active Shanta ROWLEY Screening examination for venereal disease Elevated prostate specific antigen PSA 790.93 Active Shanta ROWLEY Elevated prostate specific antigen [PSA] CHF 428.0 Active Shanta WILKERSONP Congestive heart failure, unspecified L ventricle severely impaired with EF < 20% R ventricular pacemaker Gout 274.9 Active Shanta ROWLEY Gout, unspecified Preventive health care V70.0 Active Shanta ROWLYE Routine general medical examination at a health care facility Special screening examination for other specified viral diseases V73.89 Active Shanta ROWLEY Screening examination for other specified viral diseases Nephrolithiasis, hx of 592.0 Active Shanta ROWLEY Calculus of kidney Pacemaker, 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 Shanta ROWLEY Cardiac pacemaker in situ DIETARY SURVEILLANCE AND COUNSELING V65.3 Active Shanta WILKERSONP Dietary surveillance and counseling OBESITY 278.00 Active Shanta WILKERSONP Obesity, unspecified AMBLYOPIA, LEFT 368.00 01/03/2012 Active [facility] Amblyopia, unspecified ASTIGMATISM 367.20 01/03/2012 Active [facility] Astigmatism, unspecified CATARACT, NUCLEAR, BILATERAL 366.04 01/03/2012 Active [facility] Nuclear cataract MILD - No tx needed HYPEROPIA 367.0 01/03/2012 Active [facility] Hypermetropia PRESBYOPIA 367.4 01/03/2012 Active [facility] Presbyopia 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 [...] elsewhere classified Depression ICD-311 Inactive Shanta WILKERSONP Screening for hepatitis C V73.89 Inactive Shanta WILKERSONP Screening examination for other specified viral diseases CHF 428.0 Inactive Shanta WILKERSONP Congestive heart [...] Shanta WILKERSONP RENAL INSUFFICIENCY ICD-593.9 Inactive Shanta Li [employer] CHOLELITHIASIS ICD-574.20 Inactive Shanta WILKERSONP 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 Kranthi Lai MD HERPES ZOSTER [facility] PARAPARESIS ICD-053.9 Inactive Shanta Li [employer] NEPHROLITHIASIS ICD-592.0 Inactive Shanta WILKERSONP PSA, INCREASED 790.93 2007 Inactive Shanta Li [employer] Elevated prostate specific antigen [PSA] PSA, INCREASED ICD-790.93 Inactive Shanta WILKERSONP RENAL INSUFFICIENCY 593.9 Resolved Shanta Li [employer] Unspecified disorder of kidney and ureter CHOLELITHIASIS 574.20 Resolved Shanta Li [employer] Calculus of gallbladder without mention of cholecystitis, without mention of obstruction HERPES ZOSTER [facility] PARAPARESIS 053.9 11/2007 Resolved Shatna Li [employer] Herpes zoster without mention of complication NEPHROLITHIASIS 592.0 2008 Resolved Shanta WILKERSONP Calculus of kidney Medication List Medication Instructions Start Date Stop Date Generic Name [facility] Status Provider Patient Instruction LEVAQUIN 750 MG ORAL TABLET 1 tab By Mouth x 3 days LEVOFLOXACIN 01098394746 Active Shanta Li [employer] Active TESSALON PERLES 100 MG ORAL CAPSULE 1 by mouth 3 times a day as needed for cough BENZONATATE 36188957291 Active Shanta Li [employer] Active ASPIRIN 81 MG ORAL TABLET DELAYED RELEASE 1 by mouth every day ASPIRIN 71014747344 Active Shanta Li [employer] Active CLOPIDOGREL BISULFATE 75 MG ORAL TABLET 1 By Mouth once a day CLOPIDOGREL BISULFATE 94112965533 Active Shanta Li [employer] Active ROPINIROLE HCL 0.25 MG TABLET TAKE TWO TABLETS BY MOUTH AT BEDTIME ROPINIROLE HCL 18849072475 Active Heather Perry MedAdherence Active OMEGA-3 ACID ETHYL ESTERS 1 G CAPSULE TAKE TWO CAPSULES BY MOUTH TWO TIMES A DAY [id number] ETHYL ESTERS 27847637794 Active Heather Perry MedAdherence Active ATORVASTATIN CALCIUM 10 MG ORAL TABLET 1 tab By Mouth Every Day ATORVASTATIN CALCIUM 74501422096 Active Shanta Li [employer] Active ENTRESTO 49-51 MG ORAL TABLET 1 tab By Mouth Every Day SACUBITRIL-VALSARTAN 99803386304 Active Shanta WILKERSONP Active ALLOPURINOL 300 MG ORAL TABLET 1 by mouth every day ALLOPURINOL 72346888826 Active Shanta WILKERSONP Active METOPROLOL SUCCINATE ER 25 MG ORAL TABLET EXTENDED RELEASE 24 HOUR 1 tab by mouth daily METOPROLOL SUCCINATE 39303305516 Active Mary Hurtado R.Ph Active FUROSEMIDE 40 MG ORAL TABLET 1 by mouth every am FUROSEMIDE 73738836378 Active Shanta WILKERSONP Active INTELENCE 200 MG ORAL TABLET 1 tab By Mouth Twice a Day ETRAVIRINE 68062134880 Active Shanta WILKERSONP Active COMBIVIR 150-300 MG ORAL TABLET take 1/2 tablet By Mouth Every Day LAMIVUDINE-ZIDOVUDINE 93959033881 Active Shanta WILKERSONP Active VALACYCLOVIR HCL 500 MG ORAL TABLET 1 By Mouth Every Day VALACYCLOVIR HCL 91836572987 Active Shanta WILKERSONP Active INVIRASE 500 MG ORAL TABLET 2 By Mouth Twice a Day SAQUINAVIR MESYLATE 87659709918 Active Shanta WILKERSONP Active NORVIR 100 MG ORAL TABLET 1 By Mouth Every Day Ritonavir 84524824191 Active Shanta WILKERSONP Active METOPROLOL SUCCINATE ER 25 MG ORAL TABLET EXTENDED RELEASE 24 HOUR 1 tab by mouth daily METOPROLOL SUCCINATE ER 25 MG ORAL TABLET EXTENDED RELEASE 24 HOUR METOPROLOL SUCCINATE Inactive LIPITOR 10 MG ORAL TABLET 1 by mouth every pm LIPITOR 10 MG ORAL TABLET 302478 ATORVASTATIN CALCIUM Inactive LOPID 600 MG ORAL TABLET 1 tab By Mouth Twice a Day LOPID 600 MG ORAL TABLET 965995 GEMFIBROZIL Inactive LOVAZA 1 GM ORAL CAPSULE 2 tabs By Mouth Twice a Day LOVAZA 1 GM ORAL CAPSULE 623124 [id number] ETHYL ESTERS Inactive LISINOPRIL 2.5 MG ORAL TABLET 1 By Mouth Every Day LISINOPRIL 2.5 MG ORAL TABLET 384489 LISINOPRIL Inactive NEXIUM 20 MG ORAL CAPSULE DELAYED RELEASE 1 by mouth daily NEXIUM 20 MG ORAL CAPSULE DELAYED RELEASE 678084 ESOMEPRAZOLE MAGNESIUM Inactive EPIVIR 150 MG ORAL TABLET 1 By Mouth Every Day EPIVIR 150 MG ORAL TABLET 526547 LAMIVUDINE Inactive METOPROLOL SUCCINATE ER 25 MG ORAL TABLET EXTENDED RELEASE 24 HOUR 1 tab by mouth daily METOPROLOL SUCCINATE 52659943891 No Longer Active Shanta WILKERSONP Active LIPITOR 10 MG ORAL TABLET 1 by mouth every pm ATORVASTATIN CALCIUM 36411968852 No Longer Active Shanta WILKERSONP Active LOPID 600 MG ORAL TABLET 1 tab By Mouth Twice a Day GEMFIBROZIL 92890868240 No Longer Active Shanta WILKERSONP Active LOVAZA 1 GM ORAL CAPSULE 2 tabs By Mouth Twice a Day [id number] ETHYL ESTERS 90569985963 No Longer Active Marcelle Baig Active TRICOR 145 MG ORAL TABLET 1 By Mouth Every Day FENOFIBRATE 08436591102 No Longer Active Shanta WILKERSONP Active LISINOPRIL 2.5 MG ORAL TABLET 1 By Mouth Every Day LISINOPRIL 89148893939 No Longer Active Shanta WILKERSONP Active NEXIUM 20 MG ORAL CAPSULE DELAYED RELEASE 1 by mouth daily ESOMEPRAZOLE MAGNESIUM 23711674372 No Longer Active Shanta Li [employer] Active EPIVIR 150 MG ORAL TABLET 1 By Mouth Every Day LAMIVUDINE 70745848889 No Longer Active Shanta Li [facility] Active Advance Directives Directive Description Start Date POWER OF TYPE PROOF REPRODUCER Immunizations Vaccine Administration Date Value Standard Description influenza immunization (Flu Vax) has been administered given influenza virus vaccine, unspecified formulation PEDIATRIC PNEUMOCOCCAL VACCINE ([id number]) #1 given pneumococcal conjugate vaccine, 13 valent [...] vaccine #1 transcribed from official record Novel [id number], all formulations influenza immunization (Flu Vax) has been administered transcribed from official record influenza virus vaccine, unspecified formulation Vital Signs Date Name Value Unit Range Description blood pressure, diastolic 75 mm[Hg] BP gutierrez blood pressure, systolic 121 mm[Hg] BP sys height E&M 70 [in_us] Bdy height pulse rate E&M 97 /min Heart rate respiratory rate E&M 18 /min Resp rate temperature E&M 97.5 [degF] Body temperature weight E&M 211 [lb_av] Weight Measured blood pressure, diastolic 72 mm[Hg] BP gutierrez blood pressure, systolic 128 mm[Hg] BP sys height E&M 70 [in_us] Bdy height pulse rate E&M 77 /min Heart rate respiratory rate E&M 12 /min Resp rate temperature E&M 97.5 [degF] Body temperature weight E&M 221 [lb_av] Weight Measured blood pressure, diastolic 70 mm[Hg] BP gutierrez blood pressure, systolic 105 mm[Hg] BP sys height E&M 70 [in_us] Bdy height pulse rate E&M 78 /min Heart rate temperature E&M 97.9 [degF] Body temperature weight E&M 220 [lb_av] Weight Measured Diagnostic Results Date Name Value Unit Range Description Lab Report: Urinalysis, Complete, Microscopic Examination - Urinalysis mucus on urinalysis Present Not Estab. WBC urine on microscopy 6-10 /hpf {Cells}/[HPF] 0 - 5 Lab Report: CD4/CD8 Ratio Profile, Comp. Metabolic Panel (14), Lipid Jenkins ... - Hematology T-helper cells (CD4) to T-suppressor cells (CD8) ratio 61.3 % 12.0-35.5 Lab Report: Lipid Panel, Panel 328833, Panel 169167, PSA, Serum (Serial ... - Serology HIV-1 antibody, western blot, serum Positive Lab Report: Comp. Metabolic Panel (14), Urinalysis, Routine, Microscopic ... - Urinalysis yeast identified on urinalysis Present None seen Lab Report: RNA, Real Time PCR (Graph) - Chemistry HIV-1 RNA (log 10) 1.903 sib42gvdv/mL Lab Report: CD4/CD8 Ratio Profile, Comp. Metabolic Panel (14), Lipid Jenkins ... - Microbiology hepatitis A antibody, total Positive Negative Lab Report: Comp. Metabolic Panel (14), Creatinine Clearance, Protein To ... - Chemistry creatinine clearance, urine 86 mL/min (97-137) Lab Report: CD4/CD8 Ratio Profile, Comp. Metabolic Panel (14), RNA, Real ... - Chemistry urea nitrogen, blood 26 mg/dL 8-27 Lab Report: CD4/CD8 Ratio Profile, Comp. Metabolic Panel (14), Lipid Jenkins ... - Hematology Quantiferon Gold TB blood test for tuberculosis screening Negative Negative Lab Report: CD4/CD8 Ratio Profile, Comp. Metabolic Panel (14), RNA, Real ... - Hematology erythrocyte (RBC) count 4.16 X10E6/UL 10*6/mm3 4.14-5.80 Lab Report: Urinalysis, Complete, Microscopic Examination - Urinalysis urine color Yellow Yellow Lab Report: CD4/CD8 Ratio Profile, Comp. Metabolic Panel (14), RNA, Real ... - Chemistry urea nitrogen/creatinine ratio, serum 22 10-24 Lab Report: CD4/CD8 Ratio Profile, Comp. Metabolic Panel (14), RNA, Real ... - Hematology mean corpuscular volume, RBC 108 fL 79-97 Internal Correspondence: Pre-Visit Planning: F/U 02/15/17@10:15AM-confirmed - CC care front desk team member #1, name [facility] AM-Ulises Wiseman MD / LIZZETTE HendricksMANAGER FIELD SERVICES / LIZZETTE StormMANAGER [employer]ELD SERVICES / LIZZETTE Diaz MD / Edwige Vallejo MA Lab Report: Lipid Panel - Chemistry HDL cholesterol, serum 37 mg/dL >39 Lab Report: CD4/CD8 Ratio Profile, Comp. Metabolic Panel (14), RNA, Real ... - Hematology monocytes as percent of blood leukocytes 8 % Not Estab. Lab Report: CD4/CD8 Ratio Profile, Comp. Metabolic Panel (14), RNA, Real ... - Chemistry creatinine, serum 1.20 mg/dL 0.76-1.27 bilirubin, serum, total 0.4 mg/dL 0.0-1.2 Lab Report: Protein Total, Qn, 24-Hr Urine - Urinalysis protein, total, urine, 24 hour 226.5 mg/24h 30.0-150.0 Lab Report: CD4/CD8 Ratio Profile, Comp. Metabolic Panel (14), RNA, Real ... - Hematology Eosinophil Absolute Count 0.3 X10E3/UL 10*3/uL 0.0-0.4 leukocyte count, blood 6.5 X10E3/UL 10*3/mm3 3.4-10.8 Lab Report: Urinalysis, Complete, Microscopic Examination - Urinalysis pH, urine, semiquantitative 5.0 5.0-7.5 Lab Report: CD4/CD8 Ratio Profile, Comp. Metabolic Panel (14), RNA, Real ... - Chemistry potassium, serum 5.0 mmol/L 3.5-5.2 albumin, serum 4.3 g/dL 3.5-4.8 Office Visit: Adult Followup Room #5 Ready - Hematology T-helper cells (CD4) count, lowest absolute value 6 Lab Report: CD4/CD8 Ratio Profile, Comp. Metabolic Panel (14), RNA, Real ... - Hematology lymphocyte count, blood, automated 1.6 X10E3/UL 10*3/mm3 0.7-3.1 Lab Report: Chlamydia/GC Amplification - Microbiology Neisseria gonorrhoeae DNA probe Negative Negative Lab Report: CD4/CD8 Ratio Profile, Comp. Metabolic Panel (14), RNA, Real ... - Chemistry sodium, serum 143 mmol/L 134-144 Lab Report: CD4/CD8 Ratio Profile, Comp. Metabolic Panel (14), Lipid Jenkins ... - Serology toxoplasma gondii antibody, IgG <3.0 0.0-7.1 Lab Report: CD4/CD8 Ratio Profile, Comp. Metabolic Panel (14), RNA, Real ... - Hematology neutrophils as percent of blood leukocytes 64 % Not Estab. Lab Report: Comp. Metabolic Panel (14), Urinalysis, Routine, Microscopic ... - Urinalysis casts, urine Present /[LPF] None seen Internal Correspondence: Pre-Visit Planning 07/08/2014 @ 4:15pm Confirmed. - Other List of providers caring for patient Lupe Wiseman MD, Washington Velazquez MD, Kanchan Smith MD, Jen ROWLEY, Skyler ROWLEY, Forrest GARCIA, Kareen Woo MA, Agustina Dunn MA, Tisha Smith MA, Ynes Pina MA, Marcelle Herndon MA, Esau Baig MA, Bang Randall MA, Serena Hobbs [facility]. Lab Report: CD4/CD8 Ratio Profile, Comp. Metabolic Panel (14), RNA, Real ... - Serology HIV-1RNA, serum, by PCR, quantitative <20 copies/mL {Copies}/mL Lab Report: Urinalysis, Complete, Microscopic Examination - Chemistry specific gravity, body fluid 1.026 1.005-1.030 RBC, Urine 0-2 /hpf /[HPF] 0 - 2 Lab Report: Urinalysis, Complete, Microscopic Examination - Urinalysis protein, urine, semiquantitative (dipstick) Negative Negative/Trace Lab Report: CD4/CD8 Ratio Profile, Comp. Metabolic Panel (14), RNA, Real ... - Toxicology HIV-2 antibodies, western blot Negative Negative Lab Report: CD4/CD8 Ratio Profile, Comp. Metabolic Panel (14), RNA, Real ... - Serology rapid plasma reagin antibody, serum Non Reactive Non Reactive Lab Report: CD4/CD8 Ratio Profile, Comp. Metabolic Panel (14), Lipid Jenkins ... - Serology hepatitis B core antibody, total Negative Negative Lab Report: Lipid Panel - Chemistry triglyceride, serum, fasting 191 mg/dL 0-149 Lab Report: CD4/CD8 Ratio Profile, Comp. Metabolic Panel (14), RNA, Real ... - Chemistry calcium, serum 9.6 mg/dL 8.6-10.2 Lab Report: Urinalysis, Complete, Microscopic Examination - Urinalysis bacteria, urine microscopy None seen None seen/Few Lab Report: CD4/CD8 Ratio Profile, Comp. Metabolic Panel (14), RNA, Real ... - Chemistry protein, total, serum 6.9 g/dL 6.0-8.5 alkaline phosphatase, serum 75 U/L 39-117 Lab Report: CD4/CD8 Ratio Profile, Comp. Metabolic Panel (14), RNA, Real ... - Hematology T-helper cells (CD4) as percent of blood lymphocytes 18.0 % 30.8-58.5 lymphocytes as percent of blood leukocytes 24 % Not Estab. Lab Report: CD4/CD8 Ratio Profile, Comp. Metabolic Panel (14), Lipid Jenkins ... - Chemistry hemoglobin A1C, blood, as % of total hemoglobin 4.9 % 4.8-5.6 Lab Report: CD4/CD8 Ratio Profile, Comp. Metabolic Panel (14), RNA, Real ... - Genetics/fertility eGFR if 69 mL/min/1.73m2 >59 Lab Report: CD4/CD8 Ratio Profile, Comp. Metabolic Panel (14), RNA, Real ... - Chemistry globulin, serum 2.6 1.5-4.5 Estimated Glomerular Filtration Rate (calc) 60 mL/min/1.73m2 >59 Lab Report: Urinalysis, Complete, Microscopic Examination - Basic Occult Blood, urine Negative Negative Lab Report: CD4/CD8 Ratio Profile, Comp. Metabolic Panel (14), RNA, Real ... - Chemistry vitamin D 25-hydroxy, serum 32.8 ng/mL 30.0-100.0 Lab Report: CD4/CD8 Ratio Profile, Comp. Metabolic Panel (14), Lipid Jenkins ... - Serology hepatitis B surface antibody Reactive Lab Report: Urinalysis, Complete, Microscopic Examination - Urinalysis urobilinogen, urine, semiquantitative (dipstick) 1.0 0.2-1.0 Lab Report: CD4/CD8 Ratio Profile, Lipid Panel, RNA, Real Time PCR (Grap ... - Chemistry prostate specific antigen 4.3 ng/mL 0.0-4.0 Lab Report: Comp. Metabolic Panel (14), Creatinine Clearance, Protein To ... - Chemistry creatinine, urine, 24 hour 2034.5 mg/24h (1000.0-2000.0) Lab Report: Comp. Metabolic Panel (14) - Chemistry estimated glomerular filtration rate 40 mL/min >59 Lab Report: CD4/CD8 Ratio Profile, Comp. Metabolic Panel (14), RNA, Real ... - Hematology monocyte count, blood, automated 0.5 X10E3/UL 10*3/uL 0.1-0.9 Lab Report: Lipid Panel, Panel [id number], Panel [id number], PSA, Serum (Serial ... - Genetics/fertility HIV-1 gp41 antibody, serum Present Lab Report: Lipid Panel - Chemistry very low density lipoproteins 38 mg/dL 5-40 Lab Report: CD4/CD8 Ratio Profile, Comp. Metabolic Panel (14), RNA, Real ... - Chemistry hepatitis B surface antigen Negative Negative Lab Report: Urinalysis, Complete, Microscopic Examination - Urinalysis epithelial cells, urine 0-10 /[LPF] 0 - 10 Lab Report: CD4/CD8 Ratio Profile, Comp. Metabolic Panel (14), RNA, Real ... - Chemistry uric acid, serum 6.7 mg/dL 3.7-8.6 chloride, serum 105 mmol/L 96-106 Lab Report: GenoSure(R) MG, Quant, RNA PCR, GenoSure(R) MG - Serology HIV genotype result We are unable to determine the genotype of this sample due to Lab Report: CD4/CD8 Ratio Profile, Comp. Metabolic Panel (14), RNA, Real ... - Serology HIV-1/HIV-2 Ab, serum Positive Negative Lab Report: Urinalysis, Complete, Microscopic Examination - Urinalysis leukocyte esterase, urine, by dipstick 1+ Negative Lab Report: CD4/CD8 Ratio Profile, Comp. Metabolic Panel (14), RNA, Real ... - Hematology mean corpuscular hemoglobin concentration, RBC 34.1 G/DL % 31.5-35.7 Lab Report: CD4/CD8 Ratio Profile, Comp. Metabolic Panel (14), Lipid Jenkins ... - Serology hepatitis C antibody, serum <0.1 0.0-0.9 Lab Report: CD4/CD8 Ratio Profile, Comp. Metabolic Panel (14), RNA, Real ... - Chemistry absolute CD8 638 264-380 7662/05/17 Absolute Neutrophils 4.1 X10E3/UL 10*3/uL 1.4-7.0 Lab Report: Urinalysis, Complete, Microscopic Examination - Urinalysis bilirubin, urine Negative Negative Lab Report: Lipid Panel - Chemistry LDL cholesterol, serum 75 mg/dL 0-99 Lab Report: CD4/CD8 Ratio Profile, Comp. Metabolic Panel (14), RNA, Real ... - Chemistry albumin/globulin ratio, serum 1.7 1.2-2.2 Lab Report: Lipid Panel - Chemistry cholesterol, serum 150 mg/dL 100-199 Lab Report: Comp. Metabolic Panel (14), Creatinine Clearance, Protein To ... - Chemistry creatinine, random, urine 123.3 mg/dL (22.0-328.0) Lab Report: Urinalysis, Complete, Microscopic Examination - Urinalysis appearance, urine Clear Clear Lab Report: Chlamydia/GC Amplification - Lab chlamydia DNA probe Negative Negative Lab Report: CD4/CD8 Ratio Profile, Comp. Metabolic Panel (14), RNA, Real ... - Chemistry aspartate aminotransferase (SGOT), serum 24 U/L 0-40 Lab Report: CD4/CD8 Ratio Profile, Comp. Metabolic Panel (14), RNA, Real ... - Hematology red blood cell distribution width 14.1 % 12.3-15.4 Lab Report: Urinalysis, Complete, Microscopic Examination - Urinalysis urinalysis, microscopic examination See below: Lab Report: CD4/CD8 Ratio Profile, Comp. Metabolic Panel (14), Urinalysi ... - Urinalysis Crystal Type, Urine Amorphous Sediment N/A Lab Report: CD4/CD8 Ratio Profile, Comp. Metabolic Panel (14), RNA, Real ... - Chemistry immature granulocytes, percentage of total cells, blood 0 % Not Estab. Lab Report: CD4/CD8 Ratio Profile, Comp. Metabolic Panel (14), RNA, Real ... - Hematology hematocrit, blood 44.9 % 37.5-51.0 basophils as percent of blood leukocytes 0 % Not Estab. Lab Report: CD4/CD8 Ratio Profile, Comp. Metabolic Panel (14), RNA, Real ... - Chemistry CD4/CD8 ratio 0.45 0.92-3.72 carbon dioxide, venous blood 24 mmol/L 20-29 Lab Report: Urinalysis, Complete, Microscopic Examination - Chemistry nitrate, urine Negative Negative Lab Report: Comp. Metabolic Panel (14), Urinalysis, Routine, Microscopic ... - Urinalysis cast type, urinalysis Hyaline casts N/A Lab Report: CD4/CD8 Ratio Profile, Comp. Metabolic Panel (14), RNA, Real ... - Chemistry alanine aminotransferase (SGPT), serum 10 U/L 0-44 Lab Report: CD4/CD8 Ratio Profile, Comp. Metabolic Panel (14), RNA, Real ... - Hematology mean corpuscular hemoglobin, RBC 36.8 pg 26.6-33.0 hemoglobin, blood 15.3 g/dL 13.0-17.7 T-suppressor cells (CD8) as percent of blood lymphocytes 39.9 % 12.0-35.5 Lab Report: Urinalysis, Complete, Microscopic Examination - Urinalysis glucose, urine, semiquantitative Negative Negative Lab Report: CD4/CD8 Ratio Profile, Comp. Metabolic Panel (14), RNA, Real ... - Hematology basophil count, absolute 0.0 x10E3/uL 0.0-0.2 Lab Report: CD4/CD8 Ratio Profile, Comp. Metabolic Panel (14), Urinalysi ... - Urinalysis urine crystals, microscopic Present /[HPF] N/A Lab Report: CD4/CD8 Ratio Profile, Comp. Metabolic Panel (14), RNA, Real ... - Hematology eosinophils as percent of blood leukocytes 4 % Not Estab. Lab Report: CD4/CD8 Ratio Profile, Comp. Metabolic Panel (14), RNA, Real ... - Chemistry blood glucose, random 88 mg/dL 65-99 Lab Report: Protein Total, Qn, 24-Hr Urine - Chemistry protein, total urine random 15.1 mg/dL 0.0-15.0 Lab Report: CD4/CD8 Ratio Profile, Comp. Metabolic Panel (14), RNA, Real ... - Hematology T-helper cells (CD4) count 288 /UL uL 359-1519 platelet count 198 X10E3/UL 10*3/mm3 150-379 Lab Report: Urinalysis, Complete, Microscopic Examination - Urinalysis ketones, urine, by test strip Negative Negative Encounters Date Encounter Provider Code Facility 09:32:40 CDT Ofc Vst, Est Level IV Shanta WILKERSONP CPT-45281 [facility] Adult Medicine 08:12:52 SECURITY INSPECTOR Ofc Vst, Est Level IV Shanta Li [facility] CPT-81743 [facility] Adult Medicine 12:45:11 CDT Ofc Vst, Est Level IV Shanta Li [facility] CPT-53143 [facility] Adult [facility] 06:29:34 SECURITY INSPECTOR Ofc Vst, Est Level IV Shanta WILKERSONP CPT-43255 [facility] Adult Medicine 14:27:48 CDT Ofc Vst, Est Level IV Shanta Li [facility] CPT-30938 [facility] Adult Medicine 07:25:20 CDT Ofc Vst, Est Level IV Shanta Li [facility] CPT-85938 [facility] Adult Medicine 21:41:56 SECURITY INSPECTOR Ofc Vst, Est Level IV Shanta Li [facility] CPT-32065 [facility] Adult Medicine 12:33:11 CDT Ofc Vst, Est Level IV Shanta Li [facility] CPT-96916 [facility] Adult Medicine 16:26:09 SECURITY INSPECTOR Ofc Vst, Est Level IV Shanta Li [facility] CPT-60577 [facility] Adult Medicine 11:21:29 CDT Ofc Vst, Est Level IV Shanta Li [facility] CPT-68826 [facility] Adult Medicine 11:43:59 CDT Ofc Vst, Est Level III Shanta Li [facility] CPT-11024 [facility] Adult Medicine 11:01:12 CDT Ofc Vst, Est Level IV Shanta Li [facility] CPT-62682 [facility] Adult Medicine 17:01:43 SECURITY INSPECTOR Ofc Vst, Est Level IV Shanta Li [employer] CPT-08232 [facility] Adult Medicine 18:16:42 CDT Ofc Vst, Est Level IV Shanta Li [employer] CPT-48905 [facility] Adult Medicine 10:50:18 CDT Ofc Vst, Est Level IV Shanta Li [employer] CPT-22452 [facility] Adult Medicine 12:09:48 CDT Ofc Vst, Est Level IV Shanta Li [employer] CPT-52740 [facility] Adult Medicine 12:52:09 CDT Ofc Vst, Est Level IV Shanta Li [employer] CPT-50054 [facility] Adult Medicine 18:18:31 SECURITY INSPECTOR Ofc Vst, Est Level IV Shanta Li [employer] CPT-77203 [facility] Adult Medicine Procedures Code Procedure Name Date Entry Date Standard Description CPT-19800 Xray - Chest - 2 Views - InHouse 12:27:58 CDT CPT-61495 TDAP 11:01:15 CDT CPT-53105 Prevnar (PCV13) IM 11:01:15 CDT CPT-82154 Xray - Chest - PA & Lat - [facility] 11:58:06 SECURITY INSPECTOR CPT-28375 Nutrition Re-assessment Ind (15 Min) - 34483 10:54:17 SECURITY INSPECTOR CPT-81892 Dispensing Visit (UNLIVSTED OPHTHALMOLOGICAL SERVICE/PROCEDURE) 10:32:51 CDT CPT-83349 Est Patient Intermediate Opth - 94319 11:22:46 CDT CPT-27112 Est Patient Intermediate Opth - 55979 10:44:20 CDT CPT-58942 Nutrition Re-assessment Ind (15 Min) - 82106 13:43:33 CDT CPT-28278 Pneumovax Vaccine 10:50:18 CDT CPT-48918 Nutrition Re-assessment Ind (15 Min) - 39265 11:08:49 SECURITY INSPECTOR CPT-02661 Nutrition Initial Assessment Ind (15 Min) - 02487 17:57:40 SECURITY INSPECTOR CPT-62509 Venipuncture 18:18:31 SECURITY INSPECTOR
[2018-11-13] MEDS ORDERED: ASPIRIN 81 MG CHEW TAB PO ONE (16:00)
[2018-11-13] MEDS ORDERED: SODIUM CHLORIDE 0.9% 1000ML 1,000 ML IV SCH (16:15)
[2018-11-13 16:23] LABS: BASOPHILS % 0.2 % (0.0-1.0); EOSINOPHILS # (AUTO) 0.1 (0.0-0.4); EOSINOPHILS % 1.4 % (0.0-6.0); HEMOGLOBIN 16.3 g/dL (14.0-18.0); LYMPHOCYTES # (AUTO) 1.8 (1.0-3.2); LYMPHOCYTES % 19.3 % (18.0-39.1); MEAN CORPUSCULAR HEMOGLOBIN 37.2 pg (28-32); MEAN CORPUSCULAR HGB CONC 35.4 g/dL (31-35); MONOCYTES # (AUTO) 0.7 (0.2-0.8); MONOCYTES % 6.9 % (4.4-11.3); NEUTROPHILS # (AUTO) 6.8 (2.1-6.9); NEUTROPHILS % 71.8 % (38.7-80.0); PLATELET COUNT 238 x10e3/uL (140-360); RED BLOOD COUNT 4.38 x10e6/uL (4.3-5.7); RED CELL DISTRIBUTION WIDTH 13.2 % (11.7-14.4)
[2018-11-13] MEDS ORDERED: AMIODARONE HCL 150MG 100 ML ONE (16:24)
[2018-11-13] MEDS ORDERED: DILTIAZEM HCL VIAL 5 ML ONE (16:25)
[2018-11-13] MEDS ORDERED: AMIODARONE HCL 150 MG/100 ML BAG IV ONE (16:30)
--- NOTE | 2018-11-13 16:31 | Diagnostic Imaging Report ---
Examination: Single AP view of the chest. COMPARISON: 11/23/2016 INDICATION: Shortness of breath DISCUSSION: Stable enlargement of the cardiac silhouette with left subclavian approach implantable cardiac device body and leads. Prominence of the pulmonary interstitium with cephalization and Neema B lines. Small left pleural effusion with adjacent left lower lobe airspace disease, likely passive atelectasis. No acute osseous abnormality. Posttraumatic deformity lateral left ninth rib. IMPRESSION: Cardiomegaly with interstitial pulmonary edema and small left pleural effusion. Signed by: Dr. Skyler Rocha M.D. on 11/13/2018 4:28 PM
[2018-11-13 16:42] LABS: ALBUMIN 3.2 g/dL (3.5-5.0); ALBUMIN/GLOBULIN RATIO 0.9 (0.8-2.0); ANION GAP 15.2 mmol/L (8-16); CALCIUM 9.9 mg/dL (8.4-10.2); CREATININE, SERUM 1.21 mg/dL (0.72-1.25); POTASSIUM 4.2 mmol/L (3.5-5.1)
[2018-11-13] MEDS ORDERED: AMIODARONE HCL 150 MG in DEXTROSE 5% 100ML 100 ML IV SCH (16:45)
[2018-11-13 16:49] LABS: CREATINE KINASE MB 2.2 ng/mL (0-5.0)
[2018-11-13] MEDS ORDERED: AMIODARONE HCL 900 MG in DEXTROSE 5% 500ML 500 ML IV STA (16:52)
[2018-11-13] MEDS ORDERED: AMIODARONE HCL 900 MG in DEXTROSE 5 % 500ML BOTTLE 500 ML IV ONE (17:00)
--- OUTSIDE RECORDS SUMMARY | 2018-11-13 17:11 | XMS REPORT ---
[facility] Address Unknown Phone Unavailable Care Team Providers Care Farmer And Grazier Name Role Phone Francisco MONTAGUE Unavailable Unavailable Problems This patient has no known problems. Allergies, Adverse Reactions, Alerts This patient has no known allergies or adverse reactions. Medications This patient has no known medications. Results Test Description Test Time Test Comments Text Results Atomic Results Result Comments CHEST SINGLE (PORTABLE) 2018-11-13 16:25:00 [place] [address] Patient Name: NELLI MINA MR #: [id number] : 1945 Age/Sex: 72/M Req #: [id number] Adm Physician: Ordered by: RAFITA MONTAGUE MD Report #: [id number] Location: ER Room/Bed: Procedure: [id number] DX/CHEST SINGLE (PORTABLE) Exam Date: 11/13/18 Exam Time: 1610 REPORT STATUS: Signed Examination: Single AP view of the chest. TIFFANIE RISON: 11/23/2016 INDICATION: Shortness of breath DISCUSSION: Stable enlargement of the cardiac silhouette with left subclavian approach implantable cardiac device body and leads. Prominence of the pulmonary interstitium with cephalization and Neema B lines. Small left pleural effusion with adjacent left lower lobe airspace disease, likely passive atelectasis. No acute osseous abnormality. Posttraumatic deformity lateral left ninth rib. IMPRESSION: Cardiomegaly with interstitial pulmonary edema and small left pleural effusion. Signed by: Dr. Amie Rocha M.D. on 11/13/2018 4:28 PM Dictated By: AMIE ROCHA MD [id number] Transcribed By: FRANDY on 11/13/18 2669 COPY TO: RAFITA MONTAGUE MD
[2018-11-13] MEDS ORDERED: FUROSEMIDE INJ 10 MG/ML 4 ML VIAL IV ONE (17:45)
[2018-11-13 18:16] VITALS: BP 97/67
[2018-11-13 18:28] VITALS: BP 97/69
[2018-11-13 18:36] VITALS: BP 97/67
[2018-11-13 19:34] VITALS: BP 82/71
[2018-11-13 20:13] VITALS: BP 91/67
[2018-11-13 21:32] VITALS: BP 91/67
[2018-11-13] MEDS ORDERED: ONDANSETRON HCL INJ 2MG/ML 2ML 2 MG/ML VIAL IV PRN (22:30)
[2018-11-13] MEDS ORDERED: POLYETHYLENE GLYCOL 3350 17 GM PACK PO PRN (22:30)
[2018-11-14] VITALS (9 sets, daily range): BP systolic 83–115; BP diastolic 65–99
--- NOTE | 2018-11-14 00:26 | Consultation ---
DATE OF CONSULTATION: 11/13/2018 Cardiology Consult Note REASON FOR CONSULT: Tachycardia, chest pain. CHIEF COMPLAINT: Shortness of breath, chest pain. HISTORY OF PRESENT ILLNESS: The patient is a 72-year-old man with history of HIV, on antiretrovirals; chronic systolic heart failure with EF less than 20%; coronary artery disease, status post PCI to the LAD in May 2018, status post BiV ICD placement, left bundle-branch block; who was recently admitted for treatment of pneumonia, who presented today to clinic with chest pain and shortness of breath that was worsening along with some chest discomfort. This started around 2 o'clock this morning, also noted to have some palpitations and dizziness, noted to be tachycardic and hypotensive in clinic. EMS was called and sent to the ER. At the time of exam, the patient says that he no longer has any more chest pain; however, he does report some shortness of breath and feels like his heart is racing. He says he has been compliant with all his medicines. He has been coughing for several weeks, but denies any fevers. He says he has been taking all his cardiovascular medications. No ICD shock. REVIEW OF SYSTEMS: As above, otherwise negative. SOCIAL HISTORY: The patient does not smoke, drink, or abuse drugs. FAMILY HISTORY: Noncontributory. OUTPATIENT MEDICATIONS: As documented in the MAR. ALLERGIES: NO KNOWN DRUG ALLERGIES. PHYSICAL EXAMINATION: VITAL SIGNS: Temperature afebrile, pulse 155, respiratory rate 24, blood pressure 90/60, saturating 98% on nasal cannula. GENERAL: Elderly white man, well developed, well nourished, in no acute distress. CARDIOVASCULAR: Tachycardic, irregular. No murmurs, rubs, or gallops. LUNGS: Bibasilar crackles. ABDOMEN: Soft, nontender, nondistended. NEURO AND PSYCH: Alert and oriented to person, place, and time. Normal affect. INPATIENT MEDICATIONS: Reviewed. LABORATORY DATA: Reviewed, notable for BNP of 250 and troponin of 0.02, which is negative. IMAGING DATA: Reviewed. Chest x-ray shows some mild pulmonary vascular congestion and pulmonary edema. Device interrogation was performed, shows atrial flutter with 2:1 conduction to the ventricles, occasionally paced beats. ASSESSMENT: 1. Atrial flutter with rapid ventricular response. 2. Fuxii-vw-wyuonqy systolic heart failure, EF less than 20%. 3. Status post BiV ICD placement. 4. Left bundle-branch block. 5. Coronary artery disease, status post PCI to the LAD in the past. 6. History of human immunodeficiency virus, on anti-retroviral medications. 7. History of recent pneumonia. PLAN: First troponin is negative. I do not suspect ACS at this point. All symptoms likely related to his a flutter with RVR. We will start the patient on full-dose Lovenox. Continue aspirin and Plavix. Start amiodarone IV for rate control. If he remains in atrial flutter with RVR, we will consider cardioversion after CRAIG. Start some IV diuretics. Serial troponins to rule out acute OH. Thank you for this consult. We will continue to follow. MD JOSE CARLOS Arriola/ANISH /[id number]
[2018-11-14] MEDS ORDERED: SODIUM CHLORIDE 0.9% 250ML 250 ML ONE (00:45)
[2018-11-14] MEDS: CEFTRIAXONE SOD 1 GM/NS 50 ML 50 ML IV SCH ×2 (00:48→22:23)
[2018-11-14 01:07] LABS: CREATINE KINASE MB 2.5 ng/mL (0-5.0)
[2018-11-14] MEDS: ALBUTEROL/IPRATROPIUM 3 ML NEB NEB SCH ×4 (02:40→19:25)
[2018-11-14 05:21] LABS: BASOPHILS % 0.2 % (0.0-1.0); EOSINOPHILS # (AUTO) 0.2 (0.0-0.4); HEMATOCRIT 43.2 % (38.2-49.6); HEMOGLOBIN 15.4 g/dL (14.0-18.0); LYMPHOCYTES # (AUTO) 1.7 (1.0-3.2); LYMPHOCYTES % 20.9 % (18.0-39.1); MEAN CORPUSCULAR HEMOGLOBIN 37.3 pg (28-32); MEAN CORPUSCULAR HGB CONC 35.6 g/dL (31-35); MEAN CORPUSCULAR VOLUME 104.6 fL (81-99); MONOCYTES # (AUTO) 0.7 (0.2-0.8); MONOCYTES % 8.6 % (4.4-11.3); NEUTROPHILS # (AUTO) 5.6 (2.1-6.9); NEUTROPHILS % 67.9 % (38.7-80.0); PLATELET COUNT 209 x10e3/uL (140-360); RED BLOOD COUNT 4.13 x10e6/uL (4.3-5.7); RED CELL DISTRIBUTION WIDTH 13.3 % (11.7-14.4)
[2018-11-14 05:31] LABS: ANION GAP 15.1 mmol/L (8-16); CALCIUM 9.8 mg/dL (8.4-10.2); CHOL/HDL RATIO 4.1 (3.9-4.7); CREATININE, SERUM 1.34 mg/dL (0.72-1.25); MAGNESIUM 1.9 MG/DL (1.3-2.1); PHOSPHORUS 4.3 MG/DL (2.3-4.7); POTASSIUM 4.1 mmol/L (3.5-5.1)
[2018-11-14 05:53] LABS: THYROID STIMULATING HORMONE 6.7 uIU/mL (0.350-4.940)
[2018-11-14 08:31] LABS: CREATINE KINASE MB 2.5 ng/mL (0-5.0)
[2018-11-14] MEDS ORDERED: NON-FORMULARY MEDICATION ([Entresto] 1 TAB) PO SCH (09:00)
[2018-11-14] MEDS: [UNRECOGNIZED DRUG - OTHER] PO SCH ×2 (09:00→15:10)
[2018-11-14] MEDS ORDERED: FUROSEMIDE INJ 10 MG/ML 4 ML VIAL IV SCH (09:00)
[2018-11-14] MEDS: METOPROLOL SUCCINATE 25 MG TAB XL PO SCH (09:00)
[2018-11-14] MEDS ORDERED: LAMIVUDINE/ZIDOVUDINE TAB PO SCH (09:00)
[2018-11-14] MEDS: ETRAVIRINE 200 MG PO SCH ×2 (09:00→15:10)
[2018-11-14] MEDS ORDERED: [UNRECOGNIZED DRUG - OTHER] PO SCH (09:00)
[2018-11-14] MEDS ORDERED: RITONAVIR 100 MG CAP PO SCH (09:00)
[2018-11-14] MEDS: FUROSEMIDE 40 MG TAB PO SCH (09:19)
[2018-11-14] MEDS: FAMOTIDINE 20 MG TAB PO SCH ×2 (09:19→17:29)
[2018-11-14] MEDS: MULTIVITAMINS/MINERALS TAB PO SCH (09:22)
[2018-11-14] MEDS: GUAIFENESIN 600MG/DEXTROMETHORPHAN 30MG TABSR PO SCH ×2 (09:22→17:29)
[2018-11-14] MEDS: DOCUSATE SODIUM 100 MG CAP PO SCH ×2 (09:22→15:11)
[2018-11-14] MEDS: ALLOPURINOL 300 MG TAB PO SCH (09:23)
[2018-11-14] MEDS: AZITHROMYCIN 250 MG TAB PO SCH (09:23)
[2018-11-14] MEDS: VALACYCLOVIR HCL 500 MG TAB PO SCH (09:23)
[2018-11-14] MEDS: OMEGA 3 POLYUNSAT FATTY ACIDS 1000 MG SOFTGEL PO SCH ×2 (09:23→17:29)
[2018-11-14] MEDS: NORVIR 100 MG PO SCH (14:00)
[2018-11-14] MEDS: COMBIVIR PO SCH (14:00)
[2018-11-14] MEDS ORDERED: AMIODARONE HCL 100 ML IV ONE (16:46)
[2018-11-14] MEDS: SACUBITRIL PO SCH (17:29)
[2018-11-14] MEDS: VALSARTAN PO SCH (17:29)
[2018-11-14] MEDS: AMIODARONE HCL 200 MG TAB PO SCH (17:30)
--- NOTE | 2018-11-14 18:09 | Consultation ---
DATE OF CONSULTATION: Pulmonary Critical Care Consultation CHIEF COMPLAINT: Productive cough and dyspnea. HISTORY OF PRESENT ILLNESS: The patient is a 72-year-old man. He has a history of HIV. He has been on anti-retroviral therapy for 25 years. His last viral load was nondetectable and his last CD4 count was normal. He also has a history of cardiomyopathy with systolic congestive heart failure. He had a prior pacemaker placed. Over the past several weeks, he has noted cough. He went to see his primary physician one week ago at the [facility]. He received antibiotics after he had abnormal chest x-ray, but he has not responded. He continues to have cough. He also noted some chest pain and palpitations prior to coming to the emergency department. PAST SURGICAL HISTORY: 1. Status post cardiac stent. 2. Status post pacemaker. 3. Cholecystectomy. 4. Nephrolithiasis with stone extractions. PAST MEDICAL HISTORY: 1. Systolic congestive heart failure. 2. Coronary artery disease. 3. Hypertension. 4. HIV. SOCIAL HISTORY: The patient recently quit smoking. He is not a drinker. 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 ALLERGIES: THERE ARE NO KNOWN DRUG ALLERGIES. FAMILY HISTORY: Family history is noncontributory. REVIEW OF SYSTEMS: The patient has no headache. He has no fevers. He is not complaining of neck pain. He did note some chest pain on admission. He had some palpitations. He had difficulty breathing as well as productive cough. He does not complain of abdominal pain. He has no nausea or vomiting. He has no leg edema. PHYSICAL EXAMINATION: VITAL SIGNS: The patient is afebrile. The blood pressure is 83/72 and a pulse of 120. It is a sinus rhythm. He is saturating 97% on 2 L. HEENT: Shows no facial swelling or erythema. The oropharynx is normal. LYMPHATIC: Shows no submandibular, cervical, or supraclavicular adenopathy. CARDIAC: Reveals regular rate and rhythm with normal S1 and S2. There are no murmurs or rubs heard. LUNGS: Auscultation of lungs reveals crackles at both bases. There is no wheezing. ABDOMEN: Soft, nontender. There is no rebound or guarding. EXTREMITIES: There is no leg edema or calf tenderness. NEURO: The patient is diffusely weak, but there are no focal abnormalities. LABORATORY DATA: The white blood cell count is 8.1 and the hemoglobin is 15.4. The platelet count is 209. The BUN to creatinine ratio is 32:1.34 and the other electrolytes are within normal limits. Urinalysis is normal. RADIOGRAPHIC DATA: Chest x-ray shows cardiomegaly with interstitial edema and small left pleural effusion. IMPRESSION: 1. Acute on chronic systolic congestive heart failure. 2. Atrial flutter with rapid ventricular response. 3. Community-acquired pneumonia. 4. Human immunodeficiency virus disease, well controlled on anti-retroviral therapy. PLAN: 1. Continue current antibiotics. 2. Continue oxygen. 3. Continue current anti-retroviral therapy. 4. Continue amiodarone and further treatment as recommended by Cardiology. 5. Diuretics. Erickson Flower MD [facility]/MODL /[id number]
[2018-11-14] MEDS: RIVAROXABAN 20 MG TABLET PO SCH (18:14)
[2018-11-14] MEDS: ATORVASTATIN 10 MG TAB PO SCH (20:53)
[2018-11-14] MEDS: ROPINIROLE HCL 0.25 MG TAB PO SCH (20:53)
--- NOTE | 2018-11-14 21:19 | Progress Note ---
DATE: 11/14/2018 Cardiology Progress Note SUBJECTIVE: Feels much better today. No more chest pain. Shortness of breath improved. OBJECTIVE: VITAL SIGNS: Temperature afebrile, pulse 116, respiratory rate 20, blood pressure 95/65, saturating 97% on nasal cannula. GENERAL: No acute distress. CARDIOVASCULAR: Tachycardic. Irregular. No murmurs, rubs, or gallops. LUNGS: Bibasilar crackles. ABDOMEN: Soft, nontender, nondistended. NEURO AND PSYCH: Alert and oriented to person, place, and time. Normal affect. INPATIENT MEDICATIONS: Reviewed. LABORATORY DATA: Reviewed. Troponins negative x3. IMAGING DATA: Reviewed. Chest x-ray shows pulmonary edema yesterday. TELEMETRY DATA: Reviewed. Heart rate is improved, but likely still in 2:1 flutter. Heart rates in the 115-125 range. ASSESSMENT: 1. Atrial flutter with rapid ventricular response. 2. Acute on chronic systolic heart failure. 3. Status post Bi V ICD placement. 4. Left bundle-branch block. 5. Coronary artery disease, status post percutaneous coronary intervention to the LAD in the past. 6. History of HIV. 7. History of recent pneumonia. PLAN: Ruled out for ACS with serial troponins already. Heart rate is better controlled with amiodarone IV. We will convert to p.o. amiodarone 400 mg b.i.d. Start Xarelto 20 mg at bedtime for atrial flutter anticoagulation. If the patient is not converted to sinus rhythm tomorrow morning, we will plan for CRAIG cardioversion. The patient will be n.p.o. for this. Thank you for this consult. We will continue to follow. MD JOSE CARLOS Arriola/JUSTINL /[id number]
[2018-11-15] VITALS (12 sets, daily range): BP systolic 77–112; BP diastolic 58–81
[2018-11-15] MEDS: ALBUTEROL/IPRATROPIUM 3 ML NEB NEB SCH ×4 (01:00→19:30)
[2018-11-15] MEDS ORDERED: LEVOTHYROXINE SODIUM 50 MCG TAB PO SCH (06:00)
[2018-11-15] MEDS: FAMOTIDINE 20 MG TAB PO SCH ×2 (07:30→18:06)
[2018-11-15] MEDS: ETRAVIRINE 200 MG PO SCH ×2 (08:00→18:15)
[2018-11-15] MEDS: NORVIR 100 MG PO SCH (09:00)
[2018-11-15] MEDS: SACUBITRIL PO SCH ×2 (09:00→18:07)
[2018-11-15] MEDS: METOPROLOL SUCCINATE 25 MG TAB XL PO SCH (09:00)
[2018-11-15] MEDS: OMEGA 3 POLYUNSAT FATTY ACIDS 1000 MG SOFTGEL PO SCH ×2 (09:00→18:07)
[2018-11-15] MEDS: VALSARTAN PO SCH ×2 (09:00→18:07)
[2018-11-15] MEDS: [UNRECOGNIZED DRUG - OTHER] PO SCH ×2 (09:00→18:15)
[2018-11-15] MEDS: COMBIVIR PO SCH (09:00)
[2018-11-15] MEDS: DOCUSATE SODIUM 100 MG CAP PO SCH ×2 (09:00→17:00)
[2018-11-15] MEDS: GUAIFENESIN 600MG/DEXTROMETHORPHAN 30MG TABSR PO SCH ×2 (09:00→18:07)
[2018-11-15] MEDS ORDERED: BUPIVACAINE 0.5%/EPI 30 ML SDV INJ ONE (10:35)
[2018-11-15] MEDS ORDERED: LIDOCAINE 2% /EPINEPHRINE 20 ML SDV INJ ONE (10:35)
[2018-11-15] MEDS ORDERED: ONDANSETRON HCL 4 MG ORAL DISINTEGRATING TAB PO PRN (11:00)
[2018-11-15] MEDS ORDERED: BENZOCAINE 20% SPR 60 ML CAN ONE (13:21)
--- NOTE | 2018-11-15 16:53 | Progress Note ---
DATE: 11/15/2018 Cardiology Progress Note SUBJECTIVE: CRAIG cardioversion earlier this morning done by me, now in sinus rhythm. OBJECTIVE: VITAL SIGNS: Temperature afebrile, pulse 92, respiratory rate 20, blood pressure 108/75, and saturating 98% on room air. GENERAL: No acute distress. CARDIOVASCULAR: Regular rate and rhythm. No murmurs, rubs, or gallops. LUNGS: Clear to auscultation bilaterally. ABDOMEN: Soft, nontender, and nondistended. NEURO AND PSYCH: Alert and oriented to person, place, and time. Normal affect. INPATIENT MEDICATIONS: Reviewed. LABORATORY DATA: Reviewed. IMAGING DATA: Reviewed. TELEMETRY DATA: Reviewed, was in 2:1 flutter this morning with heart rates of 115 to 125 range, now converted to sinus rhythm after cardioversion. ASSESSMENT: 1. Atrial flutter with rapid ventricular response, status post cardioversion into normal sinus rhythm. 2. Acute on chronic systolic heart failure. 3. Status post biventricular implantable cardioverter-defibrillator placement. 4. Left bundle-branch block. 5. Coronary artery disease, status post percutaneous coronary intervention to the left anterior descending in the past. 6. History of HIV. 7. History of recent pneumonia. PLAN: The patient is now in sinus rhythm. Decrease amiodarone to 200 mg b.i.d. Continue Xarelto 20 mg. The patient is okay to be discharged from cardiovascular standpoint with followup in clinic with Dr. Felipe in 1 to 2 weeks. MD JOSE CARLOS Arriola/JUSTINL /[id number]
[2018-11-15] MEDS: MULTIVITAMINS/MINERALS TAB PO SCH (18:07)
[2018-11-15] MEDS: VALACYCLOVIR HCL 500 MG TAB PO SCH (18:07)
[2018-11-15] MEDS: RIVAROXABAN 20 MG TABLET PO SCH (18:07)
[2018-11-15] MEDS: FUROSEMIDE 40 MG TAB PO SCH (18:08)
[2018-11-15] MEDS: AMIODARONE HCL 200 MG TAB PO SCH (18:10)
[2018-11-15] MEDS: AZITHROMYCIN 250 MG TAB PO SCH (18:10)
[2018-11-15] MEDS: ALLOPURINOL 300 MG TAB PO SCH (18:10)
[2018-11-15] MEDS ORDERED: LIDOCAINE HCL 2% LOCAL INJ 5 ML SDV VIAL INJ ONE (18:22)
[2018-11-15] MEDS ORDERED: PROPOFOL IV EMULSION 10 MG/ML 20 ML VIAL ONE (18:22)
--- NOTE | 2018-11-15 18:48 | Progress Note ---
DATE: SUBJECTIVE: The patient underwent cardioversion. He is now in normal sinus rhythm. He does not complain of cough or difficulty breathing. PHYSICAL EXAMINATION: VITAL SIGNS: The patient is afebrile. The heart rate is 90. Vital signs are otherwise stable. HEENT: Shows no facial swelling or erythema. CARDIAC: Reveals regular rate and rhythm with normal S1 and S2. LUNGS: Auscultation of lungs reveals clear breath sounds bilaterally. There is no wheezing. ABDOMEN: Soft and nontender. There is no rebound or guarding. EXTREMITIES: Show no leg edema or calf tenderness. There is no cyanosis or clubbing. SKIN: Shows no rashes. NEUROLOGICAL: Shows no focal abnormalities. IMPRESSION: 1. Acute on chronic systolic congestive heart failure. 2. Atrial flutter with rapid ventricular response. 3. Community-acquired pneumonia. PLAN: 1. Continue current cardiac regimen. 2. Switch to p.o. antibiotics. 3. Wean oxygen. 4. Discuss potential discharge with Cardiology and Dr. Sinha. Erickson Flower MD [facility]/ANISH /[id number]
[2018-11-15] MEDS: ROPINIROLE HCL 0.25 MG TAB PO SCH (21:17)
[2018-11-15] MEDS: ATORVASTATIN 10 MG TAB PO SCH (21:17)
[2018-11-15] MEDS: CEFTRIAXONE SOD 1 GM/NS 50 ML 50 ML IV SCH (21:53)
[2018-11-15] MEDS ORDERED: Albuterol/Ipratropium Nebulize NEB (22:20)
[2018-11-15] MEDS ORDERED: Valsartan/Sacubitril PO (22:20)
[2018-11-15] MEDS ORDERED: FUROSEMIDE40 MG PO (22:20)
[2018-11-15] MEDS ORDERED: XARELTO10 MG PO (22:20)
[2018-11-15] MEDS ORDERED: AMIODARONE HCL200 MG PO (22:20)
[2018-11-15] MEDS ORDERED: COLACE100 MG PO (22:20)
[2018-11-15] MEDS ORDERED: MUCINEX DM ER1 EACH PO (22:20)
[2018-11-15] MEDS ORDERED: SYNTHROID50 MCG PO (22:20)
[2018-11-15] MEDS ORDERED: AZITHROMYCIN250 MG PO (22:20)
[2018-11-15] MEDS ORDERED: CEFUROXIME250 MG PO (23:04)
--- NOTE | 2018-11-16 05:10 | Discharge Summary ---
PERTINENT HISTORY AND PHYSICAL FINDINGS: Mr. Gore is a 72-year-old male, who had a chest x-ray last Sunday, was diagnosed with pneumonia, had been coughing for about a month. His chest pain started on 11/13/2018, when he was putting weight on his arms in order to sit on to shower chair with associated pain in the jaw. Otherwise, the pain was nonradiating and rated 8 on a scale of 0 to 10. He already had an appointment with Dr. Felipe for the same day; however, ended up getting admitted to the hospital. He had taken Levaquin orally for 5 days without relief prior to admission. In the emergency department, he was diagnosed with new onset atrial fibrillation and atrial flutter. PAST MEDICAL HISTORY: Significant for hypertension, CHF, HIV, COPD, pneumonia, UTI, nephrolithiasis, coronary artery disease. PAST SURGICAL HISTORY: Left heart catheterization in May 2018, cholecystectomy, status post biventricular ICD placement, cardiac stent in the left anterior descending coronary artery, multiple kidney stone removals. PAST FAMILY HISTORY: Father with heart murmur, emphysema, and prostate cancer. Mother cancer survivor, cervical. Sister with congestive heart failure. SOCIAL HISTORY: The patient admits to smoking 1-1/2 packs of cigarettes per day for 51 years from age 9 to 61. He has since quit smoking. He smoked a total of 78 pack-years. Alcohol, he drinks about 1 drink per month. Denies use of illicit drugs. He lives with his . 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 ALLERGIES: NO KNOWN ALLERGIES. ADMITTING DIAGNOSES: Include: 1. New onset atrial fibrillation and atrial flutter with rapid ventricular response. Heart rate 121. 2. Gdwcj-ty-geqvvql systolic congestive heart failure. 3. Community-acquired pneumonia, failed outpatient treatment with p.o. Levaquin. 4. Chronic obstructive pulmonary disease without exacerbation, former smoker with 78 pack-year history. 5. Human immunodeficiency virus. 6. Hypotension with blood pressure 97/67, history of hypertension complicated by coronary artery disease and congestive heart failure. 7. Hypoxia without use of oxygen at home. 8. Other chest pain. 9. Hyperlipidemia. 10. Biventricular ICD in place. 11. Coronary artery disease, history of PCI with coronary artery stent in the left anterior descending coronary artery. DISCHARGE DIAGNOSES: Include: 1. New onset atrial fibrillation and atrial flutter with rapid ventricular response, now status post transesophageal echocardiogram with cardioversion (successful). 2. Wlygw-og-gikvwcz systolic congestive heart failure. 3. Community-acquired pneumonia, failed outpatient treatment with p.o. Levaquin. 4. Chronic obstructive pulmonary disease without exacerbation, former smoker with 78 pack-year history. 5. Human immunodeficiency virus. 6. Hypotension with blood pressure 97/67, history of hypertension complicated by coronary artery disease and congestive heart failure. 7. Hypoxia without use of oxygen at home. 8. Other chest pain. 9. Hyperlipidemia. 10. Biventricular ICD in place. 11. Coronary artery disease, history of PCI with coronary artery stent in the left anterior descending coronary artery. 12. Hypothyroidism. LABORATORY DATA: On admission, sodium 136, potassium 4.2, chloride 104, CO2 of 21, BUN 24, creatinine 1.21, GFR 59, glucose 114. WBC is 9.4, hemoglobin 16.3, hematocrit 46, platelets 238, neutrophils 71.8. B-type natriuretic peptide 250.5. Chest x-ray showed moderate left lower lobe pneumonia with pleural effusion on November 08 prior to admission. On November 13, chest x-ray showed cardiomegaly with interstitial pulmonary edema and small left pleural effusion. A 12-lead EKG had shown rhythm compatible with demand pacemaker, atrial tachycardia, heart rate 149, left bundle-branch block. The echocardiogram done on 11/14/2018, showed an estimated ejection fraction of 25%. No evidence of pericardial effusion. No evidence of severe valvular abnormality. The patient underwent CRAIG with cardioversion on 11/15/2018. CONSULTATIONS: Included Dr. Johnnie Smith as well as Dr. Erickson Flower with Pulmonology. HOSPITAL COURSE: Per Dr. Flower's consultation note, the patient has been on anti-retroviral therapy for 25 years. His last viral load was nondetectable and his last CD4 count was normal. He has a history of cardiomyopathy. He does not necessarily have a specific PCP, but he does use [facility] for followup care and for his HIV care. Per Dr. Smith's consultation note, ejection fraction was less than 20%. Device interrogation was performed showing an atrial flutter with 2:1 conduction to the ventricles with occasionally paced beats, mainly atrial flutter with rapid ventricular response. First troponins were negative. Acute coronary syndrome was not suspected. The patient was placed on full dose Lovenox and aspirin. Aspirin and Plavix were continued. IV amiodarone was used for rate control and the patient was on amiodarone 400 mg p.o. b.i.d. Acute [place] was ruled out with serial troponins. The patient converted into normal sinus rhythm per Dr. Smith's note dated 11/15/2018, in the plan, it indicates the amiodarone is to be decreased to 200 mg p.o. b.i.d., thus did decrease his dose to 200 mg p.o. b.i.d. for a prescription for home use. The Xarelto is continued to [address] Smith's note states the patient is okay to be discharged from cardiovascular standpoint with followup in clinic with Dr. Felipe in 1 to [address] Erickson Flower's progress note dated 11/15/2018, verbatim, it states discussed potential discharge with Cardiology and Dr. Sinha. Currently, heart rate 95. No complaints of chest pain, chills, or dizziness. He still has a mild productive cough. The patient will be sent home on DuoNebs every 6 hours. Case Management order rendered for hand-held nebulizer. The patient will have azithromycin and cefuroxime at home for 2 weeks. Continue Lasix 40 mg daily. TSH 6.7. Levothyroxine 50 mcg p.o. daily prescription supplied. DIET: The patient to continue cardiac diet. ACTIVITY: As tolerated. FOLLOWUP: Follow up with Dr. Felipe with Cardiology in 1 week. Follow up with Dr. Erickson Flower with Pulmonology as well as PCP in 1 to 2 weeks. Dictated by Nando Mead NP Renny Sinha MD [facility]/MODL /[id number]
== END 2018-11-15 23:00 | disposition home or self-care (01) | DRG 308 ==
LOC: ER 16:03 → ERHOLD 17:08 → IMCU 17:54
PROVIDERS: ADMIT Internal Medicine; ATTEND Internal Medicine
PROC: 5A2204Z Restoration of Cardiac Rhythm, Single (ICD-10-PCS; principal; 2018-11-15)
PROC: B24BZZ4 Ultrasonography of Heart with Aorta, Transesophageal (ICD-10-PCS; 2018-11-15)
DX: I48.92 Unspecified atrial flutter (principal); J18.9 Pneumonia, unspecified organism; I50.23 Acute on chronic systolic (congestive) heart failure; J44.0 Chronic obstructive pulmonary disease with (acute) lower respiratory infection; B20 Human immunodeficiency virus [HIV] disease; J44.1 Chronic obstructive pulmonary disease with (acute) exacerbation; I48.91 Unspecified atrial fibrillation; I11.0 Hypertensive heart disease with heart failure; R94.31 Abnormal electrocardiogram [ECG] [EKG]; I50.9 Heart failure, unspecified; Z87.891 Personal history of nicotine dependence; I95.9 Hypotension, unspecified; R09.02 Hypoxemia; Z87.440 Personal history of urinary (tract) infections; I25.10 Atherosclerotic heart disease of native coronary artery without angina pectoris; Z95.5 Presence of coronary angioplasty implant and graft; Z87.442 Personal history of urinary calculi; Z80.42 Family history of malignant neoplasm of prostate; Z80.8 Family history of malignant neoplasm of other organs or systems; Z82.49 Family history of ischemic heart disease and other diseases of the circulatory system; Z95.810 Presence of automatic (implantable) cardiac defibrillator; I44.7 Left bundle-branch block, unspecified; E78.5 Hyperlipidemia, unspecified; Z90.49 Acquired absence of other specified parts of digestive tract
CPT/HCPCS: 36415; 71045; 80048; 80053; 80061; 82550; 82553; 83036; 83605; 83735; 83880; 84100; 84145; 84443; 84484; 85025; 93005; 93306; 93307; 93312; 93325; 94640; 99284; J0696; J1940; J2001; J7030; J7050

== ENCOUNTER 2018-11-29 08:37 | Inpatient (IN) | payer MEDICARE ==
[~2018-11-29] VITALS: Ht 177.8 cm; Wt 90.3 kg
[~2018-11-29 08:37] MED LIST changes: +AMIODARONE HCL200 MG PO; +AZITHROMYCIN250 MG PO; +Albuterol/Ipratropium Nebulize NEB; +CEFUROXIME250 MG PO; +COLACE100 MG PO; +FUROSEMIDE40 MG PO; +MUCINEX DM ER1 EACH PO; +SYNTHROID50 MCG PO; +Valsartan/Sacubitril PO; +XARELTO10 MG PO
--- OUTSIDE RECORDS SUMMARY | 2018-11-29 08:43 | XMS REPORT ---
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 Kranthi Lai MD HERPES [facility] PARAPARESIS ICD-053.9 Inactive Shanta Li UTILITY HAND NEPHROLITHIASIS ICD-592.0 Inactive Shanta Li UTILITY HAND PSA, INCREASED 790.93 2007 Inactive Shanta Li [facility] HAND Elevated prostate specific antigen [PSA] PSA, INCREASED ICD-790.93 Inactive Shanta WILKERSONP RENAL INSUFFICIENCY 593.9 Resolved Shanta Li [facility] Unspecified disorder of kidney and ureter CHOLELITHIASIS 574.20 Resolved Shanta Araujopard UTILITY HAND Calculus of gallbladder without mention of cholecystitis, without mention of obstruction HERPES [facility] PARAPARESIS 053.9 11/2007 Resolved Shanta Araujopard UTILITY HAND Herpes zoster without mention of complication NEPHROLITHIASIS 592.0 2008 Resolved Shanta WILKERSONP Calculus of kidney Medication List Medication Instructions Start Date Stop Date Generic Name ND Status Provider Patient Instruction AZITHROMYCIN 500 MG ORAL TABLET 1 tab By Mouth daily AZITHROMYCIN 53420454946 Active Shanta Li [facility] Active CEFUROXIME AXETIL 500 MG ORAL TABLET 1 tab By Mouth Every 12 hours CEFUROXIME AXETIL 24058322811 Active Shanta Li [facility] Active COLACE 100 MG ORAL CAPSULE 1 by mouth twice a day DOCUSATE SODIUM 22681003275 Active Shanta Li [facility] Active IPRATROPIUM-ALBUTEROL 0.5-2.5 (3) MG/3ML INHALATION SOLUTION For use with Nebulizer Every 6 hours x 28 days IPRATROPIUM-ALBUTEROL 91220795509 Active Shanta Li [facility] Active MUCINEX DM 30-600 MG ORAL TABLET EXTENDED RELEASE 12 HOUR 1 tab By Mouth Twice a Day DEXTROMETHORPHAN-GUAIFENESIN 25891254277 Active Shanta Li [facility] Active XARELTO 20 MG ORAL TABLET 1 tab By Mouth Every Day RIVAROXABAN 16895549672 Active Shanta Li [facility] Active ASPIRIN 81 MG ORAL TABLET DELAYED RELEASE 1 by mouth every day ASPIRIN 33497864927 Active Shanta Li [facility] Active CLOPIDOGREL BISULFATE 75 MG ORAL TABLET 1 By Mouth once a day CLOPIDOGREL BISULFATE 84070457444 Active Shanta Li [facility] Active ROPINIROLE HCL 0.25 MG TABLET TAKE TWO TABLETS BY MOUTH AT BEDTIME ROPINIROLE HCL 79187975911 Active Heather Smithhmjackieer MedAdherence, dining service supervisor Active OMEGA-3 ACID ETHYL ESTERS 1 G CAPSULE TAKE TWO CAPSULES BY MOUTH TWO TIMES A DAY [id number]-1-[id number] ETHYL ESTERS 15361160523 Active Heather Novaposthmeyer MedAdherence, dining service supervisor Active ATORVASTATIN CALCIUM 10 MG ORAL TABLET 1 tab By Mouth Every Day ATORVASTATIN CALCIUM 03364395551 Active Shanta Li [facility] Active ENTRESTO 49-51 MG ORAL TABLET 1 tab By Mouth Every Day SACUBITRIL-VALSARTAN 49216112412 Active Shanta Li [facility] Active ALLOPURINOL 300 MG ORAL TABLET 1 by mouth every day ALLOPURINOL 21981255240 Active Shanta Li [facility] Active METOPROLOL SUCCINATE ER 25 MG ORAL TABLET EXTENDED RELEASE 24 HOUR 1 tab by mouth daily METOPROLOL SUCCINATE 72772745294 Active Mary Hurtado R.Ph Active FUROSEMIDE 40 MG ORAL TABLET 1 by mouth every am FUROSEMIDE 77994164719 Active Shanta Li [facility] Active INTELENCE 200 MG ORAL TABLET 1 tab By Mouth Twice a Day ETRAVIRINE 48116883209 Active Shanta Li [facility] Active COMBIVIR 150-300 MG ORAL TABLET take 1/2 tablet By Mouth Every Day LAMIVUDINE-ZIDOVUDINE 50943922364 Active Shanta ROWLEY Active VALACYCLOVIR HCL 500 MG ORAL TABLET 1 By Mouth Every Day VALACYCLOVIR HCL 77614104206 Active Shanta ROWLEY Active INVIRASE 500 MG ORAL TABLET 2 By Mouth Twice a Day SAQUINAVIR MESYLATE 98509329080 Active Shanta ROWLEY Active NORVIR 100 MG ORAL TABLET 1 By Mouth Every Day Ritonavir 12622688709 Active Shanta ROWLEY Active AMIODARONE HCL 200 MG ORAL TABLET 1 tab By Mouth Twice a Day AMIODARONE HCL 200 MG ORAL TABLET 114528 AMIODARONE HCL Inactive LEVAQUIN 750 MG ORAL TABLET 1 tab By Mouth x 3 days LEVAQUIN 750 MG ORAL TABLET 456671 LEVOFLOXACIN Inactive TESSALON PERLES 100 MG ORAL CAPSULE 1 by mouth 3 times a day as needed for cough TESSALON PERLES 100 MG ORAL CAPSULE 232267 BENZONATATE Inactive METOPROLOL SUCCINATE ER 25 MG ORAL TABLET EXTENDED RELEASE 24 HOUR 1 tab by mouth daily METOPROLOL SUCCINATE ER 25 MG ORAL TABLET EXTENDED RELEASE 24 HOUR METOPROLOL SUCCINATE Inactive LIPITOR 10 MG ORAL TABLET 1 by mouth every pm LIPITOR 10 MG ORAL TABLET 986540 ATORVASTATIN CALCIUM Inactive LOPID 600 MG ORAL TABLET 1 tab By Mouth Twice a Day LOPID 600 MG ORAL TABLET 249617 GEMFIBROZIL Inactive LOVAZA 1 GM ORAL CAPSULE 2 tabs By Mouth Twice a Day LOVAZA 1 GM ORAL CAPSULE 267926 EXGRT-4-GYUE ETHYL ESTERS Inactive LISINOPRIL 2.5 MG ORAL TABLET 1 By Mouth Every Day LISINOPRIL 2.5 MG ORAL TABLET 358325 LISINOPRIL Inactive NEXIUM 20 MG ORAL CAPSULE DELAYED RELEASE 1 by mouth daily NEXIUM 20 MG ORAL CAPSULE DELAYED RELEASE 550054 ESOMEPRAZOLE MAGNESIUM Inactive EPIVIR 150 MG ORAL TABLET 1 By Mouth Every Day EPIVIR 150 MG ORAL TABLET 110638 LAMIVUDINE Inactive AMIODARONE HCL 200 MG ORAL TABLET 1 tab By Mouth Twice a Day AMIODARONE HCL 24046376954 No Longer Active Shanta WILKERSONP Active LEVAQUIN 750 MG ORAL TABLET 1 tab By Mouth x 3 days LEVOFLOXACIN 22143881669 No Longer Active Shanta WILKERSONP Active TESSALON PERLES 100 MG ORAL CAPSULE 1 by mouth 3 times a day as needed for cough BENZONATATE 14645003333 No Longer Active Shanta WILKERSONP Active METOPROLOL SUCCINATE ER 25 MG ORAL TABLET EXTENDED RELEASE 24 HOUR 1 tab by mouth daily METOPROLOL SUCCINATE 85899274740 No Longer Active Shanta WILKERSONP Active LIPITOR 10 MG ORAL TABLET 1 by mouth every pm ATORVASTATIN CALCIUM 26214208490 No Longer Active Shanta WILKERSONP Active LOPID 600 MG ORAL TABLET 1 tab By Mouth Twice a Day GEMFIBROZIL 07596811675 No Longer Active Shanta WILKERSONP Active LOVAZA 1 GM ORAL CAPSULE 2 tabs By Mouth Twice a Day TAMLS-8-EITT ETHYL ESTERS 72776865429 No Longer Active Marcelle Baig Active TRICOR 145 MG ORAL TABLET 1 By Mouth Every Day FENOFIBRATE 60738023182 No Longer Active Shanta WILKERSONP Active LISINOPRIL 2.5 MG ORAL TABLET 1 By Mouth Every Day LISINOPRIL 32471642299 No Longer Active Shanta WILKERSONP Active NEXIUM 20 MG ORAL CAPSULE DELAYED RELEASE 1 by mouth daily ESOMEPRAZOLE MAGNESIUM 56912945913 No Longer Active Shanta WILKERSONP Active EPIVIR 150 MG ORAL TABLET 1 By Mouth Every Day LAMIVUDINE 78826840198 No Longer Active Shanta WILKERSONP Active Advance Directives Directive Description Start Date POWER OF STATISTICS MANAGER Immunizations Vaccine Administration Date Value Standard Description influenza immunization (Flu Vax) has been administered given influenza virus vaccine, unspecified formulation PEDIATRIC PNEUMOCOCCAL VACCINE ([id number]) #1 given pneumococcal conjugate vaccine, 13 valent [...] vaccine #1 transcribed from official record Novel [id number], all formulations influenza immunization (Flu Vax) has [...] % 12.0-35.5 Lab Report: Lipid Panel, Panel [id number], Panel [id number], PSA, Serum (Serial ... - Serology HIV-1 antibody, western blot, serum Positive Lab Report: Comp. Metabolic Panel (14), Urinalysis, Routine, Microscopic ... - Urinalysis yeast identified on urinalysis Present None seen Lab Report: RNA, Real Time PCR (Graph) - Chemistry HIV-1 RNA (log 10) 1.903 ykq77soei/mL Lab Report: CD4/CD8 Ratio Profile, Comp. Metabolic [...] Pre-Visit Planning: F/U 02/15/17@10:15AM-confirmed - CC care team guide #1, name [facility]-Ulises Wiseman MD / LIZZETTE Hendricks FNP [...] MD, Kanchan Smith MD, Jen WILKERSONP, Skyler ROWLEY, Forrest CORRIGANC, Kareen Woo MA, Agustina Dunn MA, Tisha Smith MA, Yens Pina MA, Marcelle Herndon MA, Esau Baig MA, Bang Randall MA, Serena QUIROS. Lab Report: CD4/CD8 Ratio Profile, Comp. Metabolic [...] 10*3/uL 0.1-0.9 Lab Report: Lipid Panel, Panel 548507, Panel 755461, PSA, Serum (Serial ... - Genetics/fertility HIV-1 [...] Real ... - Chemistry absolute CD8 638 057-944 3690/05/17 Absolute Neutrophils 4.1 X10E3/UL 10*3/uL 1.4-7.0 Lab [...] CDT Ofc Vst, Est Level [facility] 08:12:52 PANTOMIMIST Ofc Vst, Est Level IV Shanta WILKERSONP CPT-21171 [facility] 12:45:11 CDT Ofc Vst, Est Level IV Shanta WILKERSONP CPT-90755 [facility] 06:29:34 PANTOMIMIST Ofc Vst, Est Level IV Shanta Li [facility] CPT-55098 [facility] 14:27:48 CDT Ofc Vst, Est Level IV Shanta Li [facility]-01118 [facility] 07:25:20 CDT Ofc Vst, Est Level IV Shanta Li [facility] CPT-08623 [facility] 21:41:56 PANTOMIMIST Ofc Vst, Est Level IV Shanta Li [facility] CPT-18522 [facility] 12:33:11 CDT Ofc Vst, Est Level IV Shanta Li [facility] CPT-96432 [facility] 16:26:09 PANTOMIMIST Ofc Vst, Est Level IV Shanta Li [facility] CPT-82182 [facility] 11:21:29 CDT Ofc Vst, Est Level IV Shanta Li [facility] CPT-23923 [facility] 11:43:59 CDT Ofc Vst, Est Level III Shanta Li [facility] CPT-99879 [facility] 11:01:12 CDT Ofc Vst, Est Level IV Shanta Li [facility] CPT-28627 [facility] 17:01:43 PANTOMIMIST Ofc Vst, Est Level IV Shanta Li [facility] CPT-96235 [facility] 18:16:42 CDT Ofc Vst, Est Level IV Shanta Li [facility] CPT-87803 [facility] 10:50:18 CDT Ofc Vst, Est Level IV Shanta Li [facility] CPT-81828 [facility] 12:09:48 CDT Ofc Vst, Est Level IV Shanta Li [facility] CPT-43631 [facility] 12:52:09 CDT Ofc Vst, Est Level IV Shanta Li [facility] CPT-39091 [facility] 18:18:31 PANTOMIMIST Ofc Vst, Est Level IV Shanta Li [facility] CPT-85688 [facility] Procedures Code Procedure Name Date Entry Date Standard Description CPT-10914 Xray - Chest - 2 Views - InHouse 12:27:58 CDT CPT-37120 TDAP 11:01:15 CDT CPT-85881 Prevnar (PCV13) IM 11:01:15 CDT CPT-90448 Xray - Chest - PA & Lat - InHouse 11:58:06 PANTOMIMIST CPT-69863 Nutrition Re-assessment Ind (15 Min) - 59480 10:54:17 PANTOMIMIST CPT-27686 Dispensing Visit (UNLIVSTED OPHTHALMOLOGICAL SERVICE/PROCEDURE) 10:32:51 CDT CPT-07219 Est Patient Intermediate Opth - 37596 11:22:46 CDT CPT-24783 Est Patient Intermediate Opth - 09963 10:44:20 CDT CPT-76945 Nutrition Re-assessment Ind (15 Min) - 35991 13:43:33 CDT CPT-96272 Pneumovax Vaccine 10:50:18 CDT CPT-86334 Nutrition Re-assessment Ind (15 Min) - 24958 11:08:49 PANTOMIMIST CPT-52251 Nutrition Initial Assessment Ind (15 Min) - 87518 17:57:40 PANTOMIMIST [facility]-72918 Venipuncture 18:18:31 PANTOMIMIST
[2018-11-29] MEDS ORDERED: IPRATROPIUM BROMIDE 0.02% 2.5 ML NEB NEB ONE (09:00)
[2018-11-29] MEDS ORDERED: LEVALBUTEROL HCL SOLN NEBU 1.25 MG/3 ML NEB INH ONE (09:00)
--- NOTE | 2018-11-29 09:00 | NUR ---
only 15cc urine outpt with menjivar placement. Hx bph. md notified. placed per policy and md order.
--- NOTE | 2018-11-29 09:01 | NUR ---
rt notified of nebs.
--- NOTE | 2018-11-29 09:14 | Diagnostic Imaging Report ---
EXAM: CHEST SINGLE (PORTABLE), AP Portable DATE: 11/29/2018 Time stamp on exam: 8:58 AM INDICATION: Shortness of breath COMPARISON: 11/13/2018 FINDINGS: LINES/TUBES: Triple lead cardiac device again noted from a left chest approach. LUNGS: Worsening pulmonary edema. PLEURA: Left pleural effusion. HEART AND MEDIASTINUM: Enlarged cardiac silhouette. BONES AND SOFT TISSUES: No acute findings. IMPRESSION: Worsening pulmonary edema with a left pleural effusion. Signed by: Dr. Alfa Lopez DO on 11/29/2018 9:10 AM
[2018-11-29 09:17] LABS: INR 1.14; PROTHROMBIN TIME 15.2 seconds (11.9-14.5)
[2018-11-29 09:18] LABS: PARTIAL THROMBOPLASTIN TIME 43.1 seconds (23.8-35.5)
[2018-11-29 09:21] LABS: BASOPHILS % 0.3 % (0.0-1.0); EOSINOPHILS # (AUTO) 0.2 (0.0-0.4); EOSINOPHILS % 2.5 % (0.0-6.0); HEMATOCRIT 41.8 % (38.2-49.6); HEMOGLOBIN 14.7 g/dL (14.0-18.0); LYMPHOCYTES # (AUTO) 1.1 (1.0-3.2); LYMPHOCYTES % 15.8 % (18.0-39.1); MEAN CORPUSCULAR HEMOGLOBIN 37.2 pg (28-32); MEAN CORPUSCULAR HGB CONC 35.2 g/dL (31-35); MEAN CORPUSCULAR VOLUME 105.8 fL (81-99); MONOCYTES # (AUTO) 0.6 (0.2-0.8); MONOCYTES % 8.5 % (4.4-11.3); NEUTROPHILS % 72.6 % (38.7-80.0); PLATELET COUNT 272 x10e3/uL (140-360); RED BLOOD COUNT 3.95 x10e6/uL (4.3-5.7); RED CELL DISTRIBUTION WIDTH 13.4 % (11.7-14.4)
[2018-11-29 09:22] LABS: BILIRUBIN,URINE NEGATIVE (NEGATIVE); CLARITY,URINE SL CLOUDY (CLEAR); COLOR,URINE YELLOW (YELLOW); KETONES,URINE NEGATIVE (NEGATIVE); LEUKOCYTE ESTERASE ,URINE SMALL (NEGATIVE); NITRITE,URINE NEGATIVE (NEGATIVE); PROTEIN,URINE DIPSTICK TRACE (NEGATIVE); URINE UROBILINOGEN 0.2 mg/dL (0.2 - 1)
[2018-11-29 09:28] LABS: ALANINE AMINOTRANSFERASE 17 IU/L (0-55); ALBUMIN 2.9 g/dL (3.5-5.0); ALBUMIN/GLOBULIN RATIO 0.8 (0.8-2.0); ALKALINE PHOSPHATASE 67 IU/L (40-150); ANION GAP 14.6 mmol/L (8-16); BLOOD UREA NITROGEN 18 mg/dL (7-26); BUN/CREATININE RATIO 23 (6-25); CARBON DIOXIDE 27 mmol/L (22-29); CHLORIDE 99 mmol/L (98-107); CREATINE KINASE 103 IU/L (30-200); CREATININE, SERUM 0.79 mg/dL (0.72-1.25); EST GLOMERULAR FILTRATION RATE > 60 ML/MIN (60-); GLUCOSE 101 mg/dL (74-118); MAGNESIUM 1.8 MG/DL (1.3-2.1); POTASSIUM 3.6 mmol/L (3.5-5.1); SODIUM 137 mmol/L (136-145)
[2018-11-29 09:40] LABS: RBC,URINE >50 /HPF (0-5)
[2018-11-29 09:41] LABS: BACTERIA,URINE MODERATE /HPF; EPITHELIAL CELLS,URINE FEW /LPF
[2018-11-29 09:47] LABS: B-TYPE NATRIURETIC PEPTIDE2 144.9 pg/mL (0-100)
[2018-11-29] MEDS ORDERED: PLAVIX75 MG PO (09:49)
[2018-11-29] MEDS ORDERED: ASPIRIN81 MG PO (09:49)
[2018-11-29] MEDS: MEROPENEM 1GM 100 ML IV SCH ×2 (09:56→17:32)
[2018-11-29] MEDS ORDERED: VANCOMYCIN 1GM/NS 250 ML 250 ML IV ONE (10:00)
[2018-11-29] MEDS ORDERED: FUROSEMIDE INJ 10 MG/ML 4 ML VIAL IV ONE (10:30)
--- NOTE | 2018-11-29 10:55 | NUR ---
NOTIFIED RT OF NEBS.
[2018-11-29] MEDS ORDERED: LEVALBUTEROL HCL SOLN NEBU 0.63 MG/3 ML NEB INH SCH (11:00)
[2018-11-29] MEDS ORDERED: IPRATROPIUM BROMIDE 0.02% 2.5 ML NEB NEB SCH (11:00)
--- NOTE | 2018-11-29 14:14 | NUR ---
REPORT CALLED AT THIS TIME - PATIENT AND FAMILY UPDATED ON PLAN OF CARE AND ROOM ASSIGNMENT
--- NOTE | 2018-11-29 14:35 | NUR ---
Recvd patient from ER. AAOx3, assisted him to bed, denies any pain, no distress noted. Call light in reach,bed in lowest position
--- NOTE | 2018-11-29 14:49 | Consultation ---
DATE OF CONSULTATION: 11/29/2018 Pulmonary Critical Care Consultation CHIEF COMPLAINT: Dyspnea and cough. HISTORY OF PRESENT ILLNESS: The patient is a 73-year-old man. He has a history of HIV and has been on retroviral therapy for 25 years. He is on a four-drug regimen at this time. His last CD4 count was normal and his last viral load was nondetectable. He also has a history of cardiomyopathy and systolic congestive heart failure. He had a prior AICD and pacemaker placed. He was recently hospitalized at [facility] with atrial flutter and rapid ventricular response as well as worsening heart failure. He required cardioversion. He was started on amiodarone and Xarelto. The patient now reports worsening dyspnea and cough. He had difficulty urinating. He also noted some swelling in his extremities. He did not have fevers. He did not have chest pain. When he came to the emergency department, he received IV Lasix which apparently helped. PAST SURGICAL HISTORY: 1. Status post cardiac stent. 2. Status post pacemaker. 3. Cholecystectomy. 4. Nephrolithiasis with stone extractions. PAST MEDICAL HISTORY: 1. Systolic congestive heart failure. 2. Coronary artery disease. 3. HIV. 4. Hypertension. SOCIAL HISTORY: The patient recently quit smoking. He is not a drinker. 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 ALLERGIES: NO KNOWN DRUG ALLERGIES. FAMILY HISTORY: Family history is noncontributory. REVIEW OF SYSTEMS: GENERAL: The patient is afebrile. He does not have any headache. HEENT: He has no neck pain. His oropharynx is normal. LYMPHATIC: No submandibular, cervical, or supraclavicular adenopathy. CARDIAC: Regular rate and rhythm with normal S1, S2. There are no murmurs or rubs. LUNGS: Auscultation of lungs reveals crackles and rhonchi in both lung larson. ABDOMEN: Soft, nontender. There is no rebound or guarding. EXTREMITIES: Show 1 to 2+. He does not complain of chest pain. He does have some dyspnea and cough. He has no abdominal pain. He has no nausea or vomiting. He does report leg swelling. PHYSICAL EXAMINATION: VITAL SIGNS: The patient is afebrile. The blood pressure is 105/96 and the respiratory rate is 18. HEENT: No facial swelling or erythema. The nasal mucosa is normal. The oropharynx is normal. LYMPHATIC: No submandibular, cervical, or supraclavicular adenopathy. CARDIAC: Reveals a regular rate and rhythm with a normal S1, S2. LUNGS: Auscultation of lungs reveals crackles and rhonchi on both lung larson. ABDOMEN: Soft, nontender. There is no rebound or guarding. EXTREMITIES: Shows 2 to 3+ leg edema. LABORATORY DATA: The white blood cell count is 6.8 and hemoglobin is 14.7. The platelet count is 272. The BUN to creatinine ratio is normal. The other electrolytes are within normal limits. The chest x-ray shows diffuse pulmonary edema and cardiomegaly. It is consistent with congestive heart failure. IMPRESSION: 1. Acute on chronic systolic congestive heart failure. 2. Atrial fibrillation. 3. Human immunodeficiency virus that is well controlled. 4. Hypothyroidism. PLAN: 1. Continue Lasix b.i.d. 2. Repeat chest x-ray tomorrow. 3. Cardiology evaluation. 4. Await culture results. 5. Continue current anti-retroviral regimen. Erickson Flower MD [facility] /[id number]
[2018-11-29] MEDS: ALBUTEROL/IPRATROPIUM 3 ML NEB INH SCH ×2 (15:33→20:05)
[2018-11-29 15:51] VITALS: BP 123/56
[2018-11-29 16:38] LABS: CREATINE KINASE MB 2.7 ng/mL (0-5.0)
[2018-11-29] MEDS: [UNRECOGNIZED DRUG - OTHER] PO SCH (17:00)
[2018-11-29] MEDS ORDERED: ATORVASTATIN 20 MG TAB PO SCH (17:00)
[2018-11-29] MEDS ORDERED: SODIUM CHLORIDE 0.9% 250ML 250 ML ONE (17:15)
[2018-11-29] MEDS: DOCUSATE SODIUM 100 MG CAP PO SCH (17:32)
[2018-11-29] MEDS: FUROSEMIDE INJ 10 MG/ML 4 ML VIAL IV SCH (17:32)
[2018-11-29] MEDS: AMIODARONE HCL 200 MG TAB PO SCH (17:32)
[2018-11-29] MEDS: RIVAROXABAN 20 MG TABLET PO SCH (17:33)
[2018-11-29] MEDS: OMEGA 3 POLYUNSAT FATTY ACIDS 1000 MG SOFTGEL PO SCH (17:33)
[2018-11-29] MEDS ORDERED: NON-FORMULARY MEDICATION ([Albuterol/Ipratropium Nebulize] 3 ML) NEB SCH (19:00)
[2018-11-29] MEDS ORDERED: ACETAMINOPHEN 325 MG TAB PO PRN (19:00)
[2018-11-29 20:00] VITALS: BP 120/74
[2018-11-29] MEDS: ATORVASTATIN 10 MG TAB PO SCH (21:21)
[2018-11-29] MEDS: ROPINIROLE HCL 0.25 MG TAB PO SCH (21:21)
[2018-11-29 21:32] VITALS: BP 120/74
[2018-11-30] VITALS (19 sets, daily range): BP systolic 101–126; BP diastolic 57–89
[2018-11-30] MEDS: ALBUTEROL/IPRATROPIUM 3 ML NEB INH SCH ×4 (01:12→19:33)
[2018-11-30] MEDS: MEROPENEM 1GM 100 ML IV SCH ×2 (02:29→09:17)
[2018-11-30 05:08] LABS: BASOPHILS % 0.3 % (0.0-1.0); EOSINOPHILS # (AUTO) 0.2 (0.0-0.4); EOSINOPHILS % 2.4 % (0.0-6.0); HEMATOCRIT 39.6 % (38.2-49.6); LYMPHOCYTES # (AUTO) 0.9 (1.0-3.2); LYMPHOCYTES % 12.4 % (18.0-39.1); MEAN CORPUSCULAR HEMOGLOBIN 37.8 pg (28-32); MEAN CORPUSCULAR HGB CONC 35.4 g/dL (31-35); MONOCYTES # (AUTO) 0.6 (0.2-0.8); MONOCYTES % 8.6 % (4.4-11.3); NEUTROPHILS # (AUTO) 5.3 (2.1-6.9); NEUTROPHILS % 75.9 % (38.7-80.0); PLATELET COUNT 230 x10e3/uL (140-360); RED CELL DISTRIBUTION WIDTH 13.6 % (11.7-14.4)
[2018-11-30 05:27] LABS: ALANINE AMINOTRANSFERASE 15 IU/L (0-55); ALBUMIN 2.6 g/dL (3.5-5.0); ALBUMIN/GLOBULIN RATIO 0.8 (0.8-2.0); ALKALINE PHOSPHATASE 59 IU/L (40-150); ANION GAP 12.3 mmol/L (8-16); BLOOD UREA NITROGEN 14 mg/dL (7-26); BUN/CREATININE RATIO 18 (6-25); CALCIUM 9.1 mg/dL (8.4-10.2); CARBON DIOXIDE 30 mmol/L (22-29); CHLORIDE 104 mmol/L (98-107); CREATININE, SERUM 0.78 mg/dL (0.72-1.25); EST GLOMERULAR FILTRATION RATE > 60 ML/MIN (60-); GLUCOSE 115 mg/dL (74-118); POTASSIUM 3.3 mmol/L (3.5-5.1); SODIUM 143 mmol/L (136-145)
[2018-11-30] MEDS: LEVOTHYROXINE SODIUM 50 MCG TAB PO SCH (06:16)
[2018-11-30] MEDS ORDERED: POTASSIUM CHLORIDE 20 MEQ TAB CR PO STA (06:20)
--- NOTE | 2018-11-30 06:55 | NUR ---
Patient endorsed to next shift for continuity of care.
[2018-11-30] MEDS ORDERED: ONDANSETRON HCL INJ 2MG/ML 2ML 2 MG/ML VIAL IV PRN (07:00)
[2018-11-30] MEDS ORDERED: METOPROLOL TARTRATE INJ 1 MG/ML VIAL IV PRN (07:00)
[2018-11-30 07:30] LABS: CREATINE KINASE MB 2.6 ng/mL (0-5.0)
[2018-11-30] MEDS: GUAIFENESIN 600 MG TAB PO SCH ×4 (08:20→23:19)
--- NOTE | 2018-11-30 08:32 | NUR ---
assisted patient to use restroom,
[2018-11-30] MEDS ORDERED: RITONAVIR 100 MG CAP PO SCH (09:00)
[2018-11-30] MEDS: COMBIVIR PO SCH (09:00)
[2018-11-30] MEDS: [UNRECOGNIZED DRUG - OTHER] PO SCH ×2 (09:00→17:00)
[2018-11-30] MEDS ORDERED: METHYLPREDNISOLONE SOD SUCC 40 MG/ML VIAL 1ML IV SCH (09:00)
[2018-11-30] MEDS ORDERED: LAMIVUDINE/ZIDOVUDINE TAB PO SCH (09:00)
[2018-11-30] MEDS: NORVIR 100 MG PO SCH (09:00)
[2018-11-30] MEDS: DOCUSATE SODIUM 100 MG CAP PO SCH ×2 (09:17→16:39)
[2018-11-30] MEDS: FAMOTIDINE 20 MG TAB PO SCH ×2 (09:17→16:39)
[2018-11-30] MEDS: ASPIRIN 81 MG CHEW TAB PO SCH (09:17)
[2018-11-30] MEDS: FUROSEMIDE INJ 10 MG/ML 4 ML VIAL IV SCH (09:17)
--- NOTE | 2018-11-30 09:17 | Diagnostic Imaging Report ---
EXAMINATION: CHEST 2 VIEWS INDICATION: ^CHF ^[id number] ^[id number] COMPARISON: 11/29/2018 FINDINGS: PA and lateral views TUBES and LINES: 3-Lead pacemaker device overlying the left upper chest with leads overlying the right atrium appendage, coronary sinus and right ventricle, unchanged. LUNGS: Lungs are well inflated. Persistent diffuse bilateral pulmonary edema. Bibasilar atelectasis. PLEURA: Small right and moderate left pleural effusions, unchanged. No pneumothorax. HEART AND MEDIASTINUM: Stable moderate enlargement of the cardiac silhouette and enlargement of the pulmonary arteries. BONES AND SOFT TISSUES: No acute osseous lesion. Soft tissues are unremarkable. UPPER ABDOMEN: No free air under the diaphragm. IMPRESSION: Persistent bilateral pulmonary edema with associated small right and moderate left pleural effusions. Signed by: Dr. Aydee Delgadillo M.D. on 11/30/2018 9:13 AM
[2018-11-30] MEDS: TAMSULOSIN HCL 0.4 MG CAP PO SCH (09:18)
[2018-11-30] MEDS: AMIODARONE HCL 200 MG TAB PO SCH (09:18)
[2018-11-30] MEDS: CLOPIDOGREL BISULFATE 75 MG TAB PO SCH (09:21)
[2018-11-30] MEDS: METOPROLOL SUCCINATE 25 MG TAB XL PO SCH (09:21)
[2018-11-30] MEDS: ALLOPURINOL 300 MG TAB PO SCH (09:21)
[2018-11-30] MEDS: POTASSIUM CHLORIDE 20 MEQ TAB CR PO SCH ×2 (09:21→16:39)
[2018-11-30] MEDS: VALACYCLOVIR HCL 500 MG TAB PO SCH (09:21)
[2018-11-30] MEDS: OMEGA 3 POLYUNSAT FATTY ACIDS 1000 MG SOFTGEL PO SCH ×2 (09:21→16:39)
[2018-11-30] MEDS ORDERED: ONDANSETRON HCL 4 MG ORAL DISINTEGRATING TAB PO PRN (10:00)
[2018-11-30] MEDS ORDERED: FUROSEMIDE INJ 10 MG/ML 4 ML VIAL IV SCH (11:00)
--- NOTE | 2018-11-30 12:09 | NUR ---
ROBOTICS TECHNICIAN of Dr Felipe had rounds, talked to family , patient have increasing SOB, Transferred to ICU, at bed side
[2018-11-30] MEDS: CEFTRIAXONE SOD 1 GM/NS 50 ML 50 ML IV SCH (12:28)
--- NOTE | 2018-11-30 12:45 | NUR ---
received patient by bed to room 193. patient is alert, hard of hearing, short of breath. bilateral peripheral ivs with good blood return. head to toe assessment done.
[2018-11-30] MEDS: FUROSEMIDE INJ 100 MG in SODIUM CHLORIDE 0.9% 100 ML 90 ML IV SCH (13:01)
--- NOTE | 2018-11-30 14:28 | Consultation ---
DATE OF CONSULTATION: 11/30/2018 Cardiology Consultation REASON FOR CONSULTATION: Heart failure. HISTORY OF PRESENT ILLNESS: Mr. Gore is a patient, who is well known to our practice and was recently seen in our office. He is a 73-year-old male with a pertinent past medical history of HIV, currently on antivirals, systolic heart failure with his last ejection fraction less than 20%, coronary artery disease status post PCI of the LAD in May 2018, status post BiV ICD placement, atrial flutter, atrial fibrillation status post cardioversion on his last admission on November 15, 2018. Recently treated for pneumonia. He tells me that he presented to the ER due to worsening shortness of breath and also difficulty urinating for the last day. He does endorse that his symptoms have gradually worsened and for that reason, he asked his to bring him to the ER. He does endorse PND and also orthopnea. An increased swelling in his abdomen. He denies any chest pain. He denies any palpitations. He denies any fever or chills. He does report he has a history of an enlarged prostate and sometimes has to self-catheterize at home. REVIEW OF SYSTEMS: Negative except as mentioned above. SOCIAL HISTORY: . Does not smoke or drink. FAMILY HISTORY: Noncontributory. PHYSICAL EXAMINATION: GENERAL: Alert and oriented x3. Resting comfortably in bed, does not appear to be in any acute distress. VITAL SIGNS: Temperature 97.6, pulse 89, respiratory rate 17, blood pressure 125/57, oxygen saturation 97% on 3 L nasal cannula. NECK: Supple. JVD noted. LUNGS: Diminished breath sounds in posterior lower lobes otherwise clear to auscultation. CARDIOVASCULAR: Regular rate and rhythm. Systolic murmur present. ABDOMEN: Rounded, soft, nontender. Normoactive bowel sounds. EXTREMITIES: Lower extremity trace edema. 2+ pedal pulses. Hematuria noted in his Matta catheter. CARDIOVASCULAR MEDICATIONS: Metoprolol 25 mg p.o. daily, Plavix 75 mg p.o. daily, amiodarone 200 mg p.o. b.i.d., aspirin 81 mg p.o. daily, atorvastatin 10 mg p.o. at bedtime, Xarelto 20 mg p.o. daily, Entresto 24/26 mg p.o. b.i.d., Lasix 40 mg every 8 hours. LABORATORY DATA: WBC 6.94, hemoglobin 14.0, hematocrit 39.6, platelets 230. Sodium 143, potassium 3.3, BUN 14, creatinine 0.78. BNP 165.5. Chest x-ray with persistent bilateral pulmonary edema with associated small right and moderate left pleural effusion. IMPRESSION: 1. Exacerbation of acute on chronic systolic heart failure. 2. History of atrial flutter with rapid ventricular response, status post recent cardioversion. Recent interrogation in the office reveals occasional moments of atrial fibrillation. 3. Left bundle branch block. 4. Coronary artery disease status post left anterior descending artery and percutaneous coronary intervention May 2018. 5. HIV, currently on antiviral. 6. Pulmonary edema and pleural effusion. PLAN: Diuretic dose increased. Medications will need to be adjusted. The patient is unable to take amiodarone while on his antivirals. Continue to monitor rate on telemetry. Continue with the rest of the above-listed cardiac medications. Dr. Flower is following closely. Pulmonary recommendations highly appreciated. Urology has been consulted to see this patient due to polyuria. We will continue to follow this patient very closely. Dictated by Geeta Price NP MD [facility]/ANISH /[id number]
--- NOTE | 2018-11-30 14:48 | Progress Note ---
DATE: 11/30/2018 SUBJECTIVE: The patient had 1900 mL of diuresis yesterday. He notes some improvement in his dyspnea, but still feels short of breath. He still has some cough. PHYSICAL EXAMINATION: VITAL SIGNS: The patient is afebrile. The blood pressure is 101/61 and he is saturating 97% on 3 L. HEENT: Shows no facial swelling or erythema. CARDIAC: Reveals a regular rate and rhythm with normal S1 and S2. LUNGS: Auscultation of lungs reveals crackles in both lung larosn. ABDOMEN: Soft and nontender. There is no rebound or guarding. EXTREMITIES: Examination of the extremities shows 2 to 3+ leg edema. IMPRESSION: 1. Jflkx-tc-txaqogh systolic congestive heart failure. 2. Atrial fibrillation. 3. Nonspecific hepatocellular inflammation, possibly secondary to right-sided congestive heart failure. 4. Human immunodeficiency virus that is well controlled with the undetectable viral load. 5. Hypothyroidism. PLAN: 1. Continue Lasix twice daily. 2. Await further input from Cardiology. 3. Replace potassium. 4. Continue telemetry. Erickson Flower MD [facility]/JUSTINL /[id number]
[2018-11-30] MEDS: VALSARTAN/SACUBITRIL 24MG/26MG 1 EA TAB PO SCH (16:39)
[2018-11-30] MEDS: RIVAROXABAN 20 MG TABLET PO SCH (16:40)
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
[2018-11-30] MEDS: ROPINIROLE HCL 0.25 MG TAB PO SCH (20:48)
[2018-11-30] MEDS: ATORVASTATIN 10 MG TAB PO SCH (20:48)
--- NOTE | 2018-11-30 22:00 | Diagnostic Imaging Report ---
EXAMINATION: CHEST XRAY LINE PLACEMENT INDICATION: ^PICC placement ^[id number] ^[id number] COMPARISON: Same day at 7:45 AM FINDINGS: AP view TUBES and LINES: Stable left chest wall cardiac device. Left PICC in place with tip not visualized past the left chest wall cardiac device. Multiple external plate overlie the patient. LUNGS and pleural: Lungs are well inflated. Again seen pulmonary vascular congestion, moderate to severe edema, and bilateral pleural effusions, left greater than right. No visible pneumothorax. HEART AND MEDIASTINUM: The cardiomediastinal silhouette is obscured. BONES AND SOFT TISSUES: No acute osseous lesion. Soft tissues are unremarkable. UPPER ABDOMEN: No free air under the diaphragm. IMPRESSION: Left PICC is partially visualized and cannot be followed past the left chest wall cardiac device. The tip is likely within left axillary vein. Recommend repositioning. Pulmonary status is unchanged. Signed by: Dr. Antolin Ovalles MD on 11/30/2018 9:57 PM
--- NOTE | 2018-11-30 22:52 | Diagnostic Imaging Report ---
EXAMINATION: CHEST XRAY LINE PLACEMENT INDICATION: ^PICC reposition ^[id number] ^2234 COMPARISON: Earlier same day FINDINGS: See impression. IMPRESSION: Left PICC is visualized. The tip projects over the mid to lower SVC. No visible pneumothorax. Pulmonary status is unchanged. Signed by: Dr. Antolin Ovalles MD on 11/30/2018 10:48 PM
[2018-11-30] MEDS: DOBUtamine HCL 500MG/D5W 250ML 250 ML IV SCH (23:16)
[2018-12-01] VITALS (25 sets, daily range): BP systolic 93–126; BP diastolic 56–80
[2018-12-01] MEDS: CEFTRIAXONE SOD 1 GM/NS 50 ML 50 ML IV SCH ×2 (00:30→12:20)
[2018-12-01] MEDS: ALBUTEROL/IPRATROPIUM 3 ML NEB INH SCH ×4 (01:10→19:15)
[2018-12-01 04:52] LABS: HEMATOCRIT 39.2 % (38.2-49.6); HEMOGLOBIN 13.7 g/dL (14.0-18.0); LYMPHOCYTES # (AUTO) 0.5 (1.0-3.2); LYMPHOCYTES % 6.9 % (18.0-39.1); MEAN CORPUSCULAR HGB CONC 34.9 g/dL (31-35); MEAN CORPUSCULAR VOLUME 105.9 fL (81-99); MONOCYTES # (AUTO) 0.3 (0.2-0.8); MONOCYTES % 3.5 % (4.4-11.3); NEUTROPHILS # (AUTO) 6.7 (2.1-6.9); NEUTROPHILS % 89.2 % (38.7-80.0); PLATELET COUNT 221 x10e3/uL (140-360); RED CELL DISTRIBUTION WIDTH 13.2 % (11.7-14.4)
[2018-12-01 05:17] LABS: ANION GAP 15.9 mmol/L (8-16); BLOOD UREA NITROGEN 21 mg/dL (7-26); BUN/CREATININE RATIO 23 (6-25); CALCIUM 9.8 mg/dL (8.4-10.2); CARBON DIOXIDE 29 mmol/L (22-29); CHLORIDE 102 mmol/L (98-107); CREATININE, SERUM 0.92 mg/dL (0.72-1.25); EST GLOMERULAR FILTRATION RATE > 60 ML/MIN (60-); GLUCOSE 125 mg/dL (74-118); MAGNESIUM 1.7 MG/DL (1.3-2.1); POTASSIUM 3.9 mmol/L (3.5-5.1); SODIUM 143 mmol/L (136-145)
[2018-12-01] MEDS: GUAIFENESIN 600 MG TAB PO SCH ×3 (05:25→16:42)
[2018-12-01] MEDS: LEVOTHYROXINE SODIUM 50 MCG TAB PO SCH (05:26)
[2018-12-01 05:39] LABS: FREE T4 (FREE THYROXINE) 0.83 ng/dL (0.8-1.8); THYROID STIMULATING HORMONE 1.425 uIU/mL (0.350-4.940)
[2018-12-01] MEDS: DOCUSATE SODIUM 100 MG CAP PO SCH ×2 (08:08→16:42)
[2018-12-01] MEDS: ASPIRIN 81 MG CHEW TAB PO SCH (08:08)
[2018-12-01] MEDS: FAMOTIDINE 20 MG TAB PO SCH ×2 (08:08→16:42)
[2018-12-01] MEDS: VALSARTAN/SACUBITRIL 24MG/26MG 1 EA TAB PO SCH ×2 (08:08→16:42)
[2018-12-01] MEDS: TAMSULOSIN HCL 0.4 MG CAP PO SCH (08:09)
[2018-12-01] MEDS: OMEGA 3 POLYUNSAT FATTY ACIDS 1000 MG SOFTGEL PO SCH ×2 (08:11→16:42)
[2018-12-01] MEDS: POTASSIUM CHLORIDE 20 MEQ TAB CR PO SCH ×2 (08:11→16:42)
[2018-12-01] MEDS: VALACYCLOVIR HCL 500 MG TAB PO SCH (08:12)
[2018-12-01] MEDS: CLOPIDOGREL BISULFATE 75 MG TAB PO SCH (08:12)
[2018-12-01] MEDS: ALLOPURINOL 300 MG TAB PO SCH (08:12)
[2018-12-01] MEDS: METOPROLOL SUCCINATE 25 MG TAB XL PO SCH (08:12)
[2018-12-01] MEDS: NORVIR 100 MG PO SCH (09:49)
[2018-12-01] MEDS: COMBIVIR PO SCH (09:49)
[2018-12-01] MEDS: [UNRECOGNIZED DRUG - OTHER] PO SCH ×2 (09:49→16:42)
--- NOTE | 2018-12-01 10:22 | Diagnostic Imaging Report ---
EXAM: Limited Abdominal Ultrasound INDICATION: Ascites ^ASCITES COMPARISON: None. TECHNIQUE: Transverse and longitudinal images of the abdominal quadrants were obtained. FINDINGS: No ascites is identified IMPRESSION: No ascites. Signed by: Dr. Jordan Newton M.D. on 12/01/2018 10:19 AM
--- NOTE | 2018-12-01 10:27 | Diagnostic Imaging Report ---
EXAM: Limited chest Ultrasound INDICATION: ^ASCITES ^[id number] ^[id number] COMPARISON: None. TECHNIQUE: Transverse and longitudinal images of the chest were obtained. FINDINGS: Moderate left-sided pleural effusion with associated left lower lobe atelectasis. No right pleural effusion is identified. IMPRESSION: Moderate left-sided pleural effusion with associated left lower lobe atelectasis. Signed by: Dr. Jordan Newton M.D. on 12/01/2018 10:23 AM
--- NOTE | 2018-12-01 12:51 | Progress Note ---
DATE: 12/01/2018 Cardiology Progress Note SUBJECTIVE: The patient reports that he feels much better today. His shortness of breath is drastically improved with dobutamine and also Lasix IV drip. He reports that this is the best he has felt in months. Denies any chest pain. OBJECTIVE: VITAL SIGNS: Temperature not recorded, pulse 101, respiratory rate 18, blood pressure 102/74, oxygen saturation 96% on 3 L nasal cannula. GENERAL: Alert and oriented x3, resting comfortably in bed, does not appear to be in any acute distress. LUNGS: Diminished breath sounds in posterior lower lobes, otherwise clear to auscultation. CARDIOVASCULAR: Regular rate and rhythm. Systolic murmur present. ABDOMEN: Rounded, soft, nontender. LOWER EXTREMITY: Trace edema bilaterally. 2+ pedal pulses. CARDIOVASCULAR MEDICATIONS: Metoprolol succinate 25 mg p.o. daily, Plavix 75 p.o. daily, fish oil 1000 mg p.o. b.i.d., Entresto one tablet p.o. b.i.d., aspirin 81 mg p.o. daily, atorvastatin 10 mg p.o. h.s., dobutamine IV drip, Xarelto 20 mg p.o. daily, and furosemide IV drip. LABORATORY DATA: WBC 7.52, hemoglobin 13.7, hematocrit 39.2, platelets 221. Sodium 143, potassium 3.9, BUN 21, creatinine 0.92, glucose 125. Ultrasound of his abdomen with no ascites noted. Chest x-ray from this morning with moderate left-sided pleural effusion with associated left lower lobe atelectasis. Telemetry, V paced rhythm. IMPRESSION: 1. Exacerbation of acute on chronic systolic heart failure with evidence of low cardiac output. 2. History of atrial flutter with rapid ventricular response, status post recent cardioversion. Recent interrogation of his Bi-V ICD in the office reveals brief moments of atrial fibrillation. 3. Left bundle-branch block. 4. Coronary artery disease status post descending artery percutaneous coronary intervention in May 2018. 5. Human immunodeficiency virus positive, currently on antiretroviral. 6. Pulmonary edema and pleural effusion. PLAN: Continue inotrope care and also Lasix drip. Continue to monitor the patient's symptoms. The patient will need another heart catheterization once he is able to lie down and possibly will need evaluation to see if he needs an LVAD. For now, continue the above-listed cardiac medication. Continue to monitor this patient very closely. Urology has been consulted due to his polyuria and they are managing. Pulmonary recommendations are highly appreciated. We will continue to monitor this patient. Maintain in ICU. Dictated by Geeta Price NP MD JASKARAN GrierV/ANISH /[id number]
--- NOTE | 2018-12-01 14:17 | Progress Note ---
DATE: 12/01/2018 Pulmonary Critical Care Progress Note SUBJECTIVE: The patient was negative 2 L yesterday after being started on a Lasix drip and low dose dobutamine. OBJECTIVE: VITAL SIGNS: Blood pressure is now 102/74 with a pulse of 101. Saturation is 96% on 3 L. HEENT: Shows no facial swelling or erythema. The oropharynx is normal. LYMPHATIC: Shows no submandibular, cervical, or supraclavicular adenopathy. CARDIAC: Reveals a regular rate and rhythm with a normal S1 and S2. There are no murmurs or rubs. VITAL SIGNS: Auscultation of lungs reveals crackles in both bases. There is no wheezing. ABDOMEN: Soft and nontender. There is no rebound or guarding. LABORATORY DATA: The white blood cell count is 7.5 and the hemoglobin is 13.7. The platelet count is 221. The BUN to creatinine ratio is 21:0.9. The other electrolytes are within normal limits. IMPRESSION: 1. Acute on chronic systolic congestive heart failure. 2. Paroxysmal atrial fibrillation. 3. Human immunodeficiency virus. PLAN: 1. Wean the patient off dobutamine. 2. Continue Lasix drip. 3. Monitor BUN and creatinine as well as electrolytes. 4. Repeat x-ray in the morning. Erickson Flower MD [facility]/JUSTINL /[id number]
[2018-12-01] MEDS ORDERED: SODIUM CHLORIDE 0.9% 250ML 250 ML ONE (15:09)
[2018-12-01] MEDS ORDERED: IOPAMIDOL 370 MG/ML 200 ML INFUS..BTL INJ ONE (15:09)
[2018-12-01] MEDS: FUROSEMIDE INJ 100 MG in SODIUM CHLORIDE 0.9% 100 ML 90 ML IV SCH (16:16)
--- NOTE | 2018-12-01 16:31 | NUR ---
[id number] seen and examined
[2018-12-01] MEDS: RIVAROXABAN 20 MG TABLET PO SCH (16:42)
[2018-12-01] MEDS: CEFEPIME 1GM/NS 0.9% 50 ML 50 ML IV SCH (16:42)
[2018-12-01] MEDS: DOBUtamine HCL 500MG/D5W 250ML 250 ML IV SCH (17:33)
--- NOTE | 2018-12-01 17:49 | Diagnostic Imaging Report ---
EXAM: CT Abdomen and Pelvis WITH contrast INDICATION: ^HEMATURIA PROTOCOL. GROSS HEMATURIA, UTI, HX STONES. ^[id number] ^1545 COMPARISON: None. TECHNIQUE: Abdomen and pelvis were scanned utilizing a multidetector helical scanner from the lung base to the pubic symphysis after administration of IV contrast. Coronal and sagittal reformations were obtained. CT Urogram protocol was performed. Scan was performed in nephrogenic/excretory phase with a 10 minute split bolus in prone position. IV CONTRAST: 150 mL of Isovue 370 ORAL CONTRAST: Water COMPLICATIONS: None RADIATION DOSE: Total DLP: 2093.28 mGy*cm Estimated effective dose: (DLP x 0.015 x size factor) mSv CTDIvol has been reviewed. It is below the limits set by the Radiation Protocol Committee (RPC). FINDINGS: LINES and TUBES: Distal portion of the pacer wire is noted in the right atrium and right ventricle and coronary sinus. LOWER THORAX: Large left pleural effusion and marked compressive atelectasis of the left lower lobe. Small right pleural effusion and associated compressive atelectasis of the right lower lobe. Bronchial thickening along the bronchovascular bundles in the right lower lobe HEPATOBILIARY: Normal hepatic size and contour. Calcified granuloma in hepatic segment (series 3, image 64). No focal hepatic lesions. No biliary ductal dilation. GALLBLADDER: Cholecystectomy clips. SPLEEN: No splenomegaly. PANCREAS: No focal masses or ductal dilatation. ADRENALS: No adrenal nodules KIDNEYS/URETERS: Kidneys: Symmetrical renal enhancement. No hydronephrosis. Mild nonspecific perinephric stranding. Cortical thinning and mild scarring in the right kidney.. Cyst: 3.0 x 2.5 cm fluid density nonenhancing simple cyst in the right inferior pole (series 6, image 85). Mass: No solid enhancing masses.. Stones: 0.5 cm nonobstructing calculus in the right inferior pole (series 3, image 85). Upper collecting systems: No irregularities or filling defects. Ureters: Good contrast opacification of the left ureter and mid and distal right ureter. No filling defects, strictures or extrinsic compressions. Bladder: Circumferential bladder wall thickening. No focal lesions. Matta catheter in place. The prostate measures approximately 6.1 x 5.8 x 6.1 cm (estimated volume 112 mL). GI TRACT: No bowel dilation or evidence of obstruction. Sigmoid diverticulosis, without diverticulitis. Stomach is unremarkable. PELVIC ORGANS/BLADDER: See above.. LYMPH NODES: No lymphadenopathy. VESSELS: Atherosclerotic calcification of the abdominal aorta and iliac vessels. PERITONEUM / RETROPERITONEUM: No free air or fluid. Peripherally calcified 1.9 cm structure lateral to the ascending colon and hepatic flexure (series 3, image 63) likely represents a previous omental infarct. BONES: No aggressive lytic lesions. Multilevel degenerative disc changes in the lower thoracic and lumbosacral spine. SOFT TISSUES: Bilateral fat-containing inguinal hernias, left greater than right. IMPRESSION: 1. 0.5 cm nonobstructing calculus in the right inferior pole. No ureteral calculi, hydronephrosis or obstruction. No filling defects, strictures or extrinsic compressions in the opacified portions of the genitourinary tract. 2. Circumferential bladder wall thickening, which is likely secondary to lateral obstruction from a markedly enlarged prostate 3. Prostatomegaly likely due to BPH. 4. Large left pleural effusion and marked compressive atelectasis of the left lower lobe. Small right pleural effusion with associated compressive atelectasis of the right lower lobe. Signed by: Dr. Jordan Newton M.D. on 12/01/2018 5:45 PM
--- NOTE | 2018-12-01 19:48 | Consultation ---
DATE OF CONSULTATION: 12/01/2018 REASON FOR CONSULTATION: HIV, recommendation for antibiotics. HISTORY OF PRESENT ILLNESS: This patient who is a 73-year-old with history of HIV since 1993. He is followed by [facility]. He is also diagnosed recently with congestive heart failure. He also does self catheterization. The patient has history of cardiac arrest, had pacemaker, cholecystectomy, nephrolithiasis. He was in the hospital recently with pneumonia and congestive heart failure. The patient is coming now with shortness of breath. He has been getting progressively worse, but his cultures is growing Pseudomonas aeruginosa from the urine and I was asked to see him. LABORATORY DATA: White count is 7.52, hemoglobin 13, hematocrit 39. Sodium 143, potassium 3.9, creatinine 0.92. Blood cultures negative. MEDICATIONS: His medication list reviewed. He is currently on cefepime. He is also on Valtrex. Reviewed his retroviral medication. PHYSICAL EXAMINATION: GENERAL: He is alert, oriented. He is currently complaining of shortness of breath. HEENT: He is not icteric. NECK: Supple. CHEST: Few crackles in the bases. COR: S1 and S2. No S3, S4, or murmur. ABDOMEN: Soft. Bowel sounds present. EXTREMITIES: No edema. SKIN: No rash. IMPRESSION: 1. Human immunodeficiency virus, continue same medication. 2. Urinary tract infection, Pseudomonas. Continue with cefepime. 3. Congestive heart failure. 4. We will follow with you. MD CHARISMA Pennington/ANISH /[id number]
[2018-12-01] MEDS: ROPINIROLE HCL 0.25 MG TAB PO SCH (20:51)
[2018-12-01] MEDS: ATORVASTATIN 10 MG TAB PO SCH (20:51)
[2018-12-02] VITALS (25 sets, daily range): BP systolic 96–156; BP diastolic 60–100
[2018-12-02] MEDS: GUAIFENESIN 600 MG TAB PO SCH ×4 (00:09→16:58)
[2018-12-02] MEDS: ALBUTEROL/IPRATROPIUM 3 ML NEB INH SCH ×4 (01:07→19:22)
[2018-12-02] MEDS: CEFEPIME 1GM/NS 0.9% 50 ML 50 ML IV SCH ×2 (02:47→14:50)
[2018-12-02] MEDS: LEVOTHYROXINE SODIUM 50 MCG TAB PO SCH (05:08)
[2018-12-02 05:38] LABS: BASOPHILS % 0.1 % (0.0-1.0); EOSINOPHILS # (AUTO) 0.1 (0.0-0.4); EOSINOPHILS % 0.8 % (0.0-6.0); HEMATOCRIT 37.9 % (38.2-49.6); LYMPHOCYTES % 12.5 % (18.0-39.1); MEAN CORPUSCULAR HGB CONC 34.3 g/dL (31-35); MONOCYTES # (AUTO) 0.5 (0.2-0.8); MONOCYTES % 6.3 % (4.4-11.3); NEUTROPHILS # (AUTO) 6.2 (2.1-6.9); PLATELET COUNT 238 x10e3/uL (140-360); RED BLOOD COUNT 3.51 x10e6/uL (4.3-5.7); RED CELL DISTRIBUTION WIDTH 13.7 % (11.7-14.4)
[2018-12-02 05:54] LABS: ALANINE AMINOTRANSFERASE 17 IU/L (0-55); ALBUMIN 2.7 g/dL (3.5-5.0); ALBUMIN/GLOBULIN RATIO 0.8 (0.8-2.0); ALKALINE PHOSPHATASE 58 IU/L (40-150); ANION GAP 14.8 mmol/L (8-16); BLOOD UREA NITROGEN 22 mg/dL (7-26); BUN/CREATININE RATIO 22 (6-25); CALCIUM 9.1 mg/dL (8.4-10.2); CARBON DIOXIDE 32 mmol/L (22-29); CHLORIDE 100 mmol/L (98-107); CREATININE, SERUM 1.01 mg/dL (0.72-1.25); EST GLOMERULAR FILTRATION RATE > 60 ML/MIN (60-); GLUCOSE 88 mg/dL (74-118); POTASSIUM 3.8 mmol/L (3.5-5.1); SODIUM 143 mmol/L (136-145)
--- NOTE | 2018-12-02 06:10 | Diagnostic Imaging Report ---
EXAMINATION: CHEST SINGLE (PORTABLE) COMPARISON: Chest x-ray 11/30/2018 INDICATION: Pulmonary edema ^Pulmonary Edema ^[id number] ^0510 DISCUSSION: Frontal view of the chest obtained at 0514 hours. HEART AND MEDIASTINUM: Left heart border remains obscured LINES: Pacer/defibrillator wires are redemonstrated. LUNGS: Diffuse pulmonary vascular congestion and interstitial edema. Right posterior atelectasis is stable. PLEURA: Moderate left pleural effusion is stable. No pneumothorax. BONES AND SOFT TISSUES: Stable degenerative changes.. The soft tissues are normal. IMPRESSION: Stable pulmonary vascular congestion and interstitial edema. No change in moderate left pleural effusion. Stable right posterior atelectasis. Signed by: Dr. Geremias Pate MD on 12/02/2018 6:06 AM
[2018-12-02] MEDS: FAMOTIDINE 20 MG TAB PO SCH ×2 (08:35→16:57)
[2018-12-02] MEDS: DOCUSATE SODIUM 100 MG CAP PO SCH ×2 (08:37→16:57)
[2018-12-02] MEDS: ASPIRIN 81 MG CHEW TAB PO SCH (08:37)
[2018-12-02] MEDS: ALLOPURINOL 300 MG TAB PO SCH (08:38)
[2018-12-02] MEDS: CLOPIDOGREL BISULFATE 75 MG TAB PO SCH (08:38)
[2018-12-02] MEDS: TAMSULOSIN HCL 0.4 MG CAP PO SCH (08:40)
[2018-12-02] MEDS: VALSARTAN/SACUBITRIL 24MG/26MG 1 EA TAB PO SCH ×2 (08:40→16:57)
[2018-12-02] MEDS: POTASSIUM CHLORIDE 20 MEQ TAB CR PO SCH ×2 (08:40→16:58)
[2018-12-02] MEDS: VALACYCLOVIR HCL 500 MG TAB PO SCH (08:40)
[2018-12-02] MEDS: METOPROLOL SUCCINATE 25 MG TAB XL PO SCH (08:40)
[2018-12-02] MEDS: OMEGA 3 POLYUNSAT FATTY ACIDS 1000 MG SOFTGEL PO SCH ×2 (08:40→16:58)
--- NOTE | 2018-12-02 08:45 | Progress Note ---
DATE: 12/02/2018 Pulmonary Critical Care Progress Note. SUBJECTIVE: The patient remains on a Lasix drip as well as dobutamine 5 mcg. He has negative another 800 to 900 mL yesterday. He still has some dyspnea and some cough. PHYSICAL EXAMINATION: VITAL SIGNS: The patient is afebrile. The blood pressure is 109/77 and the saturation is 97% on 3 L. HEENT: Shows no facial swelling or erythema. CARDIAC: Reveals regular rate and rhythm with normal S1, and S2. LUNGS: Auscultation of lungs reveals decreased breath sounds on the left side. ABDOMEN: Soft, nontender. There is no rebound or guarding. EXTREMITIES: Show no leg edema or calf tenderness. There is no cyanosis or clubbing. SKIN: Shows no rashes. IMPRESSION: 1. Zdaxo-zl-syhgirv systolic congestive heart failure. 2. Left pleural effusion. 3. Paroxysmal atrial fibrillation. 4. Human immunodeficiency virus. PLAN: 1. Wean the patient off dobutamine. 2. Continue Lasix drip. 3. Left-sided thoracentesis. 4. Continue anti-retroviral therapy. 5. Continue antibiotics for Pseudomonas in the urine. MD KAREN Foster/ANISH /[id number]
[2018-12-02] MEDS: [UNRECOGNIZED DRUG - OTHER] PO SCH ×2 (08:52→16:57)
[2018-12-02] MEDS: NORVIR 100 MG PO SCH (08:52)
[2018-12-02] MEDS: COMBIVIR PO SCH (08:52)
[2018-12-02] MEDS: FUROSEMIDE INJ 100 MG in SODIUM CHLORIDE 0.9% 100 ML 90 ML IV SCH (08:56)
--- NOTE | 2018-12-02 09:36 | NUR ---
WOUND CARE NURSE INITIAL CONSULTATION. 73 YEAR OLD ADMITTED TO [facility] WITH DX OF CHF AND COPD EXACERBATION. HEAD TO TOE SKIN ASSESSMENT PERFORMED TODAY. PT PT PRESENTS WITH A 2X0.4X0.1CM STAGE II TO RIGHT BUTTOCK, NON-BLANCHABLE REDNESS, STAGE I, 10X8CM TO BILATERAL BUTTOCKS IS ALSO PRESENT. PT IS AAOX3, AND IS ABLE TO REPOSITION SELF. THERE ARE NO OTHER AREAS OF CONCERN NOTED AT THIS TIME. NO S/S OF INFECTION. PT EDUCATED ON OFFLOADING PRESSURE TO THE AFFECTED AREAS. STATES UNDERSTANDING. LABS: WBC: 7.77 ALB: 2.7 GLUCOSE: 88 BLOOD CX IS NEGATIVE URINE CX IS POSITIVE FOR PSEUDOMONAS AERUGINOSA. RECOMMENDATIONS: CONTINUE WITH ALTERNATING LOW AIR LOSS MATTRESS PROVIDE PT BILATERAL HEEL PROTECTORS AND PILLOW SUSPENSIONS REPOSITION PT EVERY TWO HOURS AND PRN. APPLY VENELEX OINTMENT TO BILATERAL BUTTOCKS BID AND COVER WITH ALLEVYN FOAM. THANKS FOR THIS CONSULTATION. Addendum: 12/02/18 at 0949 by Kendra Solomon RN Amended: Links added.
--- NOTE | 2018-12-02 10:47 | NUR ---
pt to have marc, per Dr Flower hold Xarelto. radiology aware of last admin dosage. per vlad, 48hr hold.
[2018-12-02] MEDS: DOBUtamine HCL 500MG/D5W 250ML 250 ML IV SCH (11:52)
--- NOTE | 2018-12-02 12:17 | NUR ---
per cardio, possible dc drip after thora
--- NOTE | 2018-12-02 13:15 | NUR ---
Holding physical therapy services since patient is moved to higher level of care (ICU) from room 186. Will need new eval orders when appropriate to resume PT services. Thank you. Addendum: 12/02/18 at 1315 by Hernandez dsouza PT Amended: Links added.
[2018-12-02] MEDS: BALSAM PERU/CASTOR OIL 60 GM OINT...G. TP SCH (16:58)
--- NOTE | 2018-12-02 20:58 | Progress Note ---
DATE: 12/02/2018 Cardiology Progress Note SUBJECTIVE: The patient feels more short of breath. No chest pain. OBJECTIVE: VITAL SIGNS: Temperature is 97.8, heart rate is 96, respirations are 18, blood pressure is 112/79, and oxygen saturations 92% on 2 L nasal cannula. GENERAL: He is a chronically ill-appearing man seated at bedside, mildly short of breath. NECK: Jugular venous distention. CARDIOVASCULAR: He is regular rhythm. Occasionally tachycardic. No murmurs. LUNGS: Diminished breath sounds, left greater than right. ABDOMEN: Soft, nontender, nondistended. EXTREMITIES: Trace to 1+ edema. IMAGING DATA: Chest x-ray shows stable pulmonary vascular congestion and moderate left pleural effusion. IMPRESSION: 1. Khtpl-xm-claaxut systolic congestive heart failure. 2. History of atrial flutter, status post cardioversion. 3. Biventricular ICD. 4. Left bundle branch block. 5. Coronary artery disease, status post percutaneous coronary intervention. 6. HIV. 7. Pleural effusion. RECOMMENDATIONS: Continue inotropic supported diuresis for one more day. Can start to wean dobutamine. Agree with thoracentesis. We will continue to monitor closely on telemetry. Antibiotic and HIV therapy per primary team. Dion Bell DO [facility]/MODL /[id number]
[2018-12-02] MEDS: ATORVASTATIN 10 MG TAB PO SCH (21:07)
[2018-12-02] MEDS: ROPINIROLE HCL 0.25 MG TAB PO SCH (21:07)
[2018-12-03] VITALS (20 sets, daily range): BP systolic 84–137; BP diastolic 54–100
[2018-12-03] MEDS: GUAIFENESIN 600 MG TAB PO SCH ×4 (00:15→17:27)
[2018-12-03] MEDS: ALBUTEROL/IPRATROPIUM 3 ML NEB INH SCH ×4 (01:10→19:25)
[2018-12-03] MEDS: CEFEPIME 1GM/NS 0.9% 50 ML 50 ML IV SCH ×2 (02:43→15:36)
[2018-12-03 05:03] LABS: BASOPHILS % 0.1 % (0.0-1.0); EOSINOPHILS # (AUTO) 0.1 (0.0-0.4); EOSINOPHILS % 1.7 % (0.0-6.0); HEMATOCRIT 38.5 % (38.2-49.6); HEMOGLOBIN 13.2 g/dL (14.0-18.0); LYMPHOCYTES # (AUTO) 0.9 (1.0-3.2); LYMPHOCYTES % 12.4 % (18.0-39.1); MEAN CORPUSCULAR HGB CONC 34.3 g/dL (31-35); MEAN CORPUSCULAR VOLUME 107.8 fL (81-99); MONOCYTES # (AUTO) 0.5 (0.2-0.8); MONOCYTES % 7.1 % (4.4-11.3); NEUTROPHILS % 78.3 % (38.7-80.0); PLATELET COUNT 238 x10e3/uL (140-360); RED BLOOD COUNT 3.57 x10e6/uL (4.3-5.7); RED CELL DISTRIBUTION WIDTH 13.2 % (11.7-14.4)
[2018-12-03] MEDS: LEVOTHYROXINE SODIUM 50 MCG TAB PO SCH (05:06)
[2018-12-03 05:20] LABS: ANION GAP 15.8 mmol/L (8-16); BLOOD UREA NITROGEN 22 mg/dL (7-26); BUN/CREATININE RATIO 25 (6-25); CALCIUM 9.2 mg/dL (8.4-10.2); CARBON DIOXIDE 31 mmol/L (22-29); CHLORIDE 98 mmol/L (98-107); CREATININE, SERUM 0.89 mg/dL (0.72-1.25); EST GLOMERULAR FILTRATION RATE > 60 ML/MIN (60-); GLUCOSE 92 mg/dL (74-118); POTASSIUM 3.8 mmol/L (3.5-5.1); SODIUM 141 mmol/L (136-145)
--- NOTE | 2018-12-03 08:32 | Progress Note ---
DATE: 12/03/2018 SUBJECTIVE: The patient has some improvement. He is sitting upright and eating breakfast. He is still on dobutamine at 5 and the Lasix drip. He is awaiting thoracentesis. PHYSICAL EXAMINATION: VITAL SIGNS: The patient is afebrile. The blood pressure is 111/70 and saturation is 94% on 3 L. HEENT: Shows no facial swelling or erythema. The oropharynx normal. LYMPHATIC: Shows no submandibular, cervical, or supraclavicular adenopathy. CARDIAC: Reveals a regular rate and rhythm with normal S1, S2. There are no murmurs or rubs heard. LUNGS: Auscultation of lungs reveals decreased breath sounds at the left base. There is no wheezing. ABDOMEN: Soft, nontender. There is no rebound or guarding. EXTREMITIES: Show no leg edema or calf tenderness. There is no cyanosis or clubbing. SKIN: Shows no rashes. IMPRESSION: 1. Pdhdt-oo-kmpvbfg systolic heart failure. 2. Paroxysmal atrial fibrillation. 3. Human immunodeficiency virus. 4. Left pleural effusion. PLAN: 1. Wean the patient off dobutamine. 2. Continue Lasix drip. 3. Left-sided thoracentesis. 4. Anti-retroviral therapy. Erickson Flower MD [facility]/JUSTINL /[id number]
[2018-12-03] MEDS: NORVIR 100 MG PO SCH (08:44)
[2018-12-03] MEDS: FAMOTIDINE 20 MG TAB PO SCH ×2 (08:44→15:36)
[2018-12-03] MEDS: DOCUSATE SODIUM 100 MG CAP PO SCH ×2 (08:44→17:27)
[2018-12-03] MEDS: COMBIVIR PO SCH (08:44)
[2018-12-03] MEDS: VALSARTAN/SACUBITRIL 24MG/26MG 1 EA TAB PO SCH ×2 (08:44→17:27)
[2018-12-03] MEDS: TAMSULOSIN HCL 0.4 MG CAP PO SCH (08:44)
[2018-12-03] MEDS: [UNRECOGNIZED DRUG - OTHER] PO SCH ×2 (08:47→17:00)
[2018-12-03] MEDS: OMEGA 3 POLYUNSAT FATTY ACIDS 1000 MG SOFTGEL PO SCH ×2 (08:48→17:27)
[2018-12-03] MEDS: ALLOPURINOL 300 MG TAB PO SCH (08:48)
[2018-12-03] MEDS: POTASSIUM CHLORIDE 20 MEQ TAB CR PO SCH ×2 (08:48→17:27)
[2018-12-03] MEDS: METOPROLOL SUCCINATE 25 MG TAB XL PO SCH (08:48)
[2018-12-03] MEDS: POLYETHYLENE GLYCOL 3350 17 GM PACK PO SCH (08:48)
[2018-12-03] MEDS: VALACYCLOVIR HCL 500 MG TAB PO SCH (08:48)
[2018-12-03] MEDS: BALSAM PERU/CASTOR OIL 60 GM OINT...G. TP SCH ×2 (08:48→17:27)
[2018-12-03] MEDS: CLOPIDOGREL BISULFATE 75 MG TAB PO SCH (09:00)
[2018-12-03] MEDS ORDERED: DOCUSATE SODIUM 100 MG CAP PO SCH (09:00)
[2018-12-03] MEDS: ASPIRIN 81 MG CHEW TAB PO SCH (09:00)
[2018-12-03] MEDS: DOBUtamine HCL 500MG/D5W 250ML 250 ML IV SCH (09:00)
[2018-12-03] MEDS: FUROSEMIDE INJ 100 MG in SODIUM CHLORIDE 0.9% 100 ML 90 ML IV SCH (10:00)
--- NOTE | 2018-12-03 14:22 | NUR ---
DISCUSSED IN BARRIER ROUNDS, PT TO HAVE THORACENTESIS TODAY BY DR TROTTER, THEN HOPEFUL TO DECREASE THE DRIP THEN DOWNGRADE.
[2018-12-03] MEDS ORDERED: LIDOCAINE HCL 2% LOCAL 20 ML VIAL ONE (14:42)
--- NOTE | 2018-12-03 15:24 | NUR ---
bedside thoracentesis done with dr lopez. pt tolerated well. per dr soto, dc drip once completed but remain on lasix drip.
--- NOTE | 2018-12-03 15:42 | NUR ---
Nutrition Intervention Note RD Recommendation(s) for Physician: -Continue current diet as ordered -Rec Ensure Compact TID to increase protein-calorie intake -Rec MVi w/minerals and vitamin C for wound healing -The patient meets criteria for MODERATE protein-calorie malnutrition. Plan of Care: RD following, monitoring for tolerance and adequacy, ONS rec Nutrition reason for involvement: Diagnosis CHF RD Assessment 12/03 73yo M, who is readmitted for CHF. Pt is well known to me from his previous admission. Thoracentesis is planned for today. Visited pt in the room. Per , pt was eating better at home than in the hospital. Discussed menu options but pt didnt like most of the items on the menu except cheeseburger. Pt has been drinking Ensure once a day at home. has noted ~5-10lbs weight loss since discharged from [facility] on 11/13/2018. Per RN, pt eats ~75-100% of his meals but complains of not liking hospital foods. No complains of nausea or vomiting. No chewing or swallowing difficulty. Ensure has been ordered. Pt doesnt want any diet education during my visit. Will continue to monitor and follow. Principal Problems/Diagnoses: 1. Tbjfo-oj-ngzgxll systolic heart failure. 2. Paroxysmal atrial fibrillation. 3. Human immunodeficiency virus. 4. Left pleural effusion. PMH: hypertension, CHF, HIV, COPD, pneumonia, UTI, nephrolithiasis, coronary artery disease. GI: abdomen round, flatus present Skin: stage II to right buttock, non-blanchable redness, stage I, 10x8cm to bilateral buttocks is also present Labs: (12/03) reviewed Meds: KCl, fish oil, pepcid, colace, lopressor, synthroid, cefepime Ht: 70in Wt: 197.13lb BMI: 28.3kg/m2 IBW: 166lbs Malnutrition Evaluation (12/03/2018) The patient meets criteria for MODERATE protein-calorie malnutrition. Energy intake: <75% of estimated energy requirements for >7 days Weight loss: >2% in 1week (Acute) Fat loss: None Muscle loss: None Supporting Evidence: Fluid accumulation: Moderate Functional Status: no changes Nutrition Prescription (Diet Order): cardiac diet Estimated Nutritional Needs: Calories: 1638 1820kcal(18-20kcal/kg/d) Weight used: CBW Protein: 91 137g(1-1.5g/kg/d) Weight used: CBW Diet Adequacy: Meeting calorie needs, Not meeting protein needs Diet Education Needs Assessment: Diet education indicated, but patient declined. Nutrition Care Level: low Nutrition Diagnosis: Increased protein needs related to altered skin integrity as evidenced by stage I and II pressure ulcer. Goal: Patient will meet 75-100% of estimated needs by follow up Progress: Progressing Interventions: Modified diet, Commercial beverage, Multivitamin/mineral supplement therapy Monitoring/Evaluation: Total energy intake, Total protein intake, Modified diet, Liquid supplement, Weight change Signed: Josseline Almanza MS, RD, LD
[2018-12-03 16:39] LABS: BODY FLUID COLOR STRAW
[2018-12-03 16:40] LABS: RBC,BODY FLUID 400 cells/uL; WBC,BODY FLUID 190 cells/uL
[2018-12-03 16:44] LABS: BODY FLUID TYPE PLEURAL
[2018-12-03 16:45] LABS: BODY FLUID APPEARANCE CLOUDY
--- NOTE | 2018-12-03 17:10 | Diagnostic Imaging Report ---
EXAM: CHEST SINGLE (PORTABLE), AP Portable DATE: 12/03/2018 Time stamp on exam: 4:34 PM INDICATION: Congestive heart failure COMPARISON: 12/02/2018 FINDINGS: LINES/TUBES: Triple lead cardiac device is intact. LUNGS: Moderate pulmonary edema. PLEURA: Bilateral pleural effusions; left greater than right. Size of the left effusion is diminished compared to the prior study (status post thoracentesis). There is no pneumothorax. HEART AND MEDIASTINUM: Heart is enlarged. BONES AND SOFT TISSUES: No acute findings. IMPRESSION: 1. Cardiomegaly, pulmonary edema and pleural effusions compatible with CHF. 2. Left pleural effusion is diminished without evidence of a pneumothorax. Signed by: Dr. Alfa Lopez DO on 12/03/2018 5:06 PM
[2018-12-03 18:14] LABS: LYMPHOCYTES,BODY FLUID 27 %; MONO/MACROPHG,BODY FLUID 39 %; NEUTROPHILS,BODY FLUID 24 %; OTHER CELLS,BODY FLUID 10 %
[2018-12-03] MEDS: ROPINIROLE HCL 0.25 MG TAB PO SCH (20:44)
[2018-12-03] MEDS: ATORVASTATIN 10 MG TAB PO SCH (20:44)
--- NOTE | 2018-12-03 20:45 | Progress Note ---
DATE: 12/03/2018 Cardiology Progress Note SUBJECTIVE: The patient is feeling somewhat better today, respirations have improved. OBJECTIVE: VITAL SIGNS: Temperature is 98.4, heart rate is 100, respirations are 20, blood pressure is 111/75, ox saturation 96% on 3 L nasal cannula. GENERAL: Chronically ill-appearing elderly man, lying comfortably in bed. CARDIOVASCULAR: He is irregular, tachycardic. No murmurs. PULMONARY: Decreased breath sounds, left greater than right. ABDOMEN: Soft, nontender, and nondistended. EXTREMITIES: Trace edema. CARDIOVASCULAR MEDICATIONS: Reviewed. LABORATORY DATA: Reviewed. Hemoglobin is 12. Creatinine is 0.89. IMPRESSION: 1. Njmip-ru-xupaltd systolic congestive heart failure. 2. History of atrial flutter, status post cardioversion. 3. Biventricular ICD. 4. Left bundle-branch block. 5. Coronary artery disease, status post percutaneous coronary intervention. 6. HIV. 7. Pleural effusion. RECOMMENDATIONS: The patient continues to diurese well. Thoracentesis has been planned for today. Can wean dobutamine after procedure has been performed. Continue Lasix intravenously for diuresis. Antibiotic and HIV therapy per primary team. Dion Bell DO BM/MODL /[id number]
--- NOTE | 2018-12-03 21:50 | Operative Report ---
DATE OF PROCEDURE: 12/03/2018 SURGEON: Erickson Flower MD PROCEDURE: Ultrasound-guided thoracentesis. CONSENT: Consent was obtained from the patient. PREOPERATIVE DIAGNOSIS: Left pleural effusion. POSTOPERATIVE DIAGNOSIS: Left pleural effusion. ANESTHESIA: A 1% lidocaine for local anesthesia. DESCRIPTION OF PROCEDURE: The patient was sitting upright and leaning forward. The left posterior hemithorax was prepped sterilely. A full length drape was used along with sterile gloves and sterile technique. An ultrasound machine was used to visualize the left pleural space. The significant quantity of pleural fluid was seen in the left pleural space. There were no loculations. The area over the posterior 9th rib was anesthetized with 1% lidocaine. The subcutaneous tissue was subsequently anesthetized. The pleural space was located and the parietal pleura was anesthetized. A small incision was made over the posterior 9th rib. A 16-gauge needle and catheter were then advanced into the pleural space. The catheter was advanced over the needle by the Seldinger technique. A 1560 mL of dark yellow fluid removed from the left pleural space. COMPLICATIONS: None. ESTIMATED BLOOD LOSS: None. Erickson Flower MD [facility]/MODL /[id number]
[2018-12-04] VITALS (18 sets, daily range): BP systolic 81–118; BP diastolic 36–75
[2018-12-04] MEDS: GUAIFENESIN 600 MG TAB PO SCH ×4 (00:44→18:00)
[2018-12-04] MEDS: ALBUTEROL/IPRATROPIUM 3 ML NEB INH SCH ×4 (01:10→19:30)
[2018-12-04] MEDS: CEFEPIME 1GM/NS 0.9% 50 ML 50 ML IV SCH ×2 (03:00→18:23)
[2018-12-04 05:27] LABS: BASOPHILS % 0.3 % (0.0-1.0); EOSINOPHILS # (AUTO) 0.2 (0.0-0.4); EOSINOPHILS % 3.2 % (0.0-6.0); HEMATOCRIT 37.2 % (38.2-49.6); HEMOGLOBIN 12.7 g/dL (14.0-18.0); LYMPHOCYTES % 13.2 % (18.0-39.1); MEAN CORPUSCULAR HEMOGLOBIN 36.8 pg (28-32); MEAN CORPUSCULAR HGB CONC 34.1 g/dL (31-35); MEAN CORPUSCULAR VOLUME 107.8 fL (81-99); MONOCYTES # (AUTO) 0.6 (0.2-0.8); MONOCYTES % 7.8 % (4.4-11.3); NEUTROPHILS # (AUTO) 5.4 (2.1-6.9); NEUTROPHILS % 74.9 % (38.7-80.0); PLATELET COUNT 204 x10e3/uL (140-360); RED BLOOD COUNT 3.45 x10e6/uL (4.3-5.7)
[2018-12-04] MEDS: LEVOTHYROXINE SODIUM 50 MCG TAB PO SCH (05:28)
[2018-12-04 05:39] LABS: ANION GAP 14.8 mmol/L (8-16); BLOOD UREA NITROGEN 21 mg/dL (7-26); BUN/CREATININE RATIO 23 (6-25); CALCIUM 9.5 mg/dL (8.4-10.2); CARBON DIOXIDE 31 mmol/L (22-29); CHLORIDE 98 mmol/L (98-107); EST GLOMERULAR FILTRATION RATE > 60 ML/MIN (60-); GLUCOSE 86 mg/dL (74-118); POTASSIUM 3.8 mmol/L (3.5-5.1); SODIUM 140 mmol/L (136-145)
[2018-12-04 07:18] LABS: ALBUMIN 2.6 g/dL (3.5-5.0); BILIRUBIN,DIRECT 0.4 mg/dL (0.0-0.5)
[2018-12-04] MEDS: POLYETHYLENE GLYCOL 3350 17 GM PACK PO SCH (09:00)
[2018-12-04] MEDS: FAMOTIDINE 20 MG TAB PO SCH ×2 (09:35→18:23)
[2018-12-04] MEDS: NORVIR 100 MG PO SCH (10:23)
[2018-12-04] MEDS: TAMSULOSIN HCL 0.4 MG CAP PO SCH (10:23)
[2018-12-04] MEDS: DOCUSATE SODIUM 100 MG CAP PO SCH ×2 (10:23→18:23)
[2018-12-04] MEDS: [UNRECOGNIZED DRUG - OTHER] PO SCH ×2 (10:23→18:23)
[2018-12-04] MEDS: ASPIRIN 81 MG CHEW TAB PO SCH (10:23)
[2018-12-04] MEDS: COMBIVIR PO SCH (10:23)
[2018-12-04] MEDS: OMEGA 3 POLYUNSAT FATTY ACIDS 1000 MG SOFTGEL PO SCH ×2 (10:24→18:24)
[2018-12-04] MEDS: VALSARTAN/SACUBITRIL 24MG/26MG 1 EA TAB PO SCH ×2 (10:24→18:23)
[2018-12-04] MEDS: VALACYCLOVIR HCL 500 MG TAB PO SCH (10:24)
[2018-12-04] MEDS: POTASSIUM CHLORIDE 20 MEQ TAB CR PO SCH ×2 (10:24→18:24)
[2018-12-04] MEDS: CLOPIDOGREL BISULFATE 75 MG TAB PO SCH (10:24)
[2018-12-04] MEDS: BALSAM PERU/CASTOR OIL 60 GM OINT...G. TP SCH ×2 (10:25→18:24)
[2018-12-04] MEDS: ALLOPURINOL 300 MG TAB PO SCH (10:25)
[2018-12-04] MEDS: METOPROLOL SUCCINATE 25 MG TAB XL PO SCH (10:25)
[2018-12-04] MEDS: FUROSEMIDE INJ 100 MG in SODIUM CHLORIDE 0.9% 100 ML 90 ML IV SCH (11:00)
--- NOTE | 2018-12-04 17:03 | Progress Note ---
DATE: 12/04/2018 Pulmonary Progress Note SUBJECTIVE: The patient had thoracentesis yesterday. He is off the dobutamine, but remains on a Lasix drip. Overall, he feels better. PHYSICAL EXAMINATION: VITAL SIGNS: The blood pressure is 110/68 and the saturation is 94% on 3 L. The pulse is 95. HEENT: Shows no facial swelling or erythema. CARDIAC: Reveals regular rate and rhythm with normal S1 and S2. There are no murmurs or rubs heard. LUNGS: Auscultation of lungs reveals clear breath sounds bilaterally. There is no wheezing. ABDOMEN: Soft, nontender. There is no rebound or guarding. EXTREMITIES: Show no leg edema or calf tenderness. There is no cyanosis or clubbing. SKIN: Shows no rashes. NEUROLOGIC: Shows no focal abnormalities. LABORATORY DATA: The BUN to creatinine ratio is 21 to 0.9. The other electrolytes are within normal limits. The white blood cell count is 7.2 and hemoglobin is 12.7. The platelet count is 204. IMPRESSION: 1. Acute on chronic systolic congestive heart failure. 2. Paroxysmal atrial fibrillation. 3. Human immunodeficiency virus. PLAN: 1. Continue diuresis. Consider changing Lasix strip to IV Lasix twice daily. 2. Continue current cardiac regimen. 3. Antiretroviral therapy. Erickson Flower MD [facility]/MODL /[id number]
[2018-12-04] MEDS ORDERED: BENZONATATE 100 MG CAP PO PRN (18:15)
[2018-12-04] MEDS: ROPINIROLE HCL 0.25 MG TAB PO SCH (21:03)
[2018-12-04] MEDS: ATORVASTATIN 10 MG TAB PO SCH (21:03)
--- NOTE | 2018-12-04 22:44 | Progress Note ---
DATE: 12/04/2018 Cardiology Progress Note. SUBJECTIVE: The patient underwent thoracentesis, feeling better, sleeping comfortably. OBJECTIVE: VITAL SIGNS: Temperature is 98.2, heart rate is 97, respirations are 18, blood pressure is 103/74, oxygen saturation 98% on 3 L nasal cannula. GENERAL: He is a chronically ill-appearing elderly man, sleeping comfortably. CARDIOVASCULAR: He is regular rate and rhythm, episodes of tachycardia. Normal S1, S2. LUNGS: Diminished breath sounds. ABDOMEN: Soft, nontender, nondistended. EXTREMITIES: Trace edema. CARDIOVASCULAR MEDICATIONS: Reviewed. LABORATORY DATA: Reviewed. Hemoglobin 12.7. Creatinine is 0.9. IMPRESSION: 1. Eougi-mx-ahjdvgp systolic congestive heart failure. 2. HIV. 3. Pleural effusion, status post thoracentesis. 4. Chronic deconditioning. 5. Coronary artery disease, status post percutaneous coronary intervention. 6. Implantable cardioverter-defibrillator. RECOMMENDATIONS: We will continue Lasix drip for one more day. Continue close hemodynamic and telemetry monitoring. Appreciate the assistance of thoracentesis. We will transition to twice daily dosing of Lasix tomorrow. Dobutamine has been weaned off. Dion Bell DO [facility]/MODL /[id number]
[2018-12-05] VITALS (23 sets, daily range): BP systolic 88–120; BP diastolic 50–74
[2018-12-05] MEDS: GUAIFENESIN 600 MG TAB PO SCH ×5 (00:15→23:17)
[2018-12-05] MEDS: ALBUTEROL/IPRATROPIUM 3 ML NEB INH SCH ×4 (01:00→19:30)
[2018-12-05] MEDS: CEFEPIME 1GM/NS 0.9% 50 ML 50 ML IV SCH ×2 (03:02→15:21)
[2018-12-05 05:09] LABS: BASOPHILS % 0.3 % (0.0-1.0); EOSINOPHILS # (AUTO) 0.3 (0.0-0.4); EOSINOPHILS % 4.4 % (0.0-6.0); HEMATOCRIT 35.9 % (38.2-49.6); HEMOGLOBIN 12.2 g/dL (14.0-18.0); LYMPHOCYTES % 13.3 % (18.0-39.1); MEAN CORPUSCULAR HEMOGLOBIN 36.7 pg (28-32); MEAN CORPUSCULAR VOLUME 108.1 fL (81-99); MONOCYTES # (AUTO) 0.6 (0.2-0.8); MONOCYTES % 8.3 % (4.4-11.3); NEUTROPHILS # (AUTO) 5.3 (2.1-6.9); NEUTROPHILS % 73.3 % (38.7-80.0); PLATELET COUNT 199 x10e3/uL (140-360); RED BLOOD COUNT 3.32 x10e6/uL (4.3-5.7); RED CELL DISTRIBUTION WIDTH 12.6 % (11.7-14.4)
[2018-12-05 05:27] LABS: ANION GAP 15.7 mmol/L (8-16); BLOOD UREA NITROGEN 25 mg/dL (7-26); BUN/CREATININE RATIO 27 (6-25); CALCIUM 8.8 mg/dL (8.4-10.2); CARBON DIOXIDE 30 mmol/L (22-29); CHLORIDE 97 mmol/L (98-107); CREATININE, SERUM 0.93 mg/dL (0.72-1.25); EST GLOMERULAR FILTRATION RATE > 60 ML/MIN (60-); GLUCOSE 99 mg/dL (74-118); MAGNESIUM 1.7 MG/DL (1.3-2.1); POTASSIUM 3.7 mmol/L (3.5-5.1); SODIUM 139 mmol/L (136-145)
[2018-12-05] MEDS: LEVOTHYROXINE SODIUM 50 MCG TAB PO SCH (06:20)
[2018-12-05] MEDS: COMBIVIR PO SCH (08:16)
[2018-12-05] MEDS: ASPIRIN 81 MG CHEW TAB PO SCH (08:16)
[2018-12-05] MEDS: POTASSIUM CHLORIDE 20 MEQ TAB CR PO SCH ×2 (08:16→17:21)
[2018-12-05] MEDS: [UNRECOGNIZED DRUG - OTHER] PO SCH ×2 (08:16→17:20)
[2018-12-05] MEDS: VALSARTAN/SACUBITRIL 24MG/26MG 1 EA TAB PO SCH ×2 (08:16→17:20)
[2018-12-05] MEDS: NORVIR 100 MG PO SCH (08:16)
[2018-12-05] MEDS: FAMOTIDINE 20 MG TAB PO SCH ×2 (08:16→17:20)
[2018-12-05] MEDS: DOCUSATE SODIUM 100 MG CAP PO SCH ×2 (08:16→17:20)
[2018-12-05] MEDS: TAMSULOSIN HCL 0.4 MG CAP PO SCH (08:16)
[2018-12-05] MEDS: ALLOPURINOL 300 MG TAB PO SCH (08:17)
[2018-12-05] MEDS: METOPROLOL SUCCINATE 25 MG TAB XL PO SCH (08:17)
[2018-12-05] MEDS: BALSAM PERU/CASTOR OIL 60 GM OINT...G. TP SCH ×2 (08:17→17:20)
[2018-12-05] MEDS: VALACYCLOVIR HCL 500 MG TAB PO SCH (08:17)
[2018-12-05] MEDS: OMEGA 3 POLYUNSAT FATTY ACIDS 1000 MG SOFTGEL PO SCH ×2 (08:17→17:20)
[2018-12-05] MEDS: GUAIFENESIN 600MG/DEXTROMETHORPHAN 30MG TABSR PO SCH ×2 (08:17→17:20)
[2018-12-05] MEDS: CLOPIDOGREL BISULFATE 75 MG TAB PO SCH (08:17)
[2018-12-05] MEDS: POLYETHYLENE GLYCOL 3350 17 GM PACK PO SCH (08:17)
--- NOTE | 2018-12-05 14:08 | Progress Note ---
DATE: 12/05/2018 Pulmonary Critical Care Progress Note SUBJECTIVE: The patient has less dyspnea. He is off Lasix drip and is off dobutamine. PHYSICAL EXAMINATION: VITAL SIGNS: The patient is afebrile. The blood pressure is 97/62 and saturation is 94% on 3 L. HEENT: Shows no facial swelling or erythema. CARDIAC: Reveals regular rate and rhythm with normal S1 and S2. LUNGS: Auscultation of lungs reveals crackles at the bases. There is no wheezing. ABDOMEN: Soft, nontender. There is no rebound or guarding. EXTREMITIES: Show no leg edema or calf tenderness. There is no cyanosis or clubbing. SKIN: Shows no rashes. NEUROLOGICAL: Shows no focal abnormalities. IMPRESSION: 1. Acute on chronic systolic congestive heart failure. 2. Paroxysmal atrial fibrillation. 3. Human immunodeficiency virus. PLAN: 1. Continue intermittent Lasix. 2. Continue current cardiac regimen. 3. Repeat chest x-ray tomorrow. 4. Antiretroviral therapy. Erickson Flower MD [facility]/MODL /[id number]
--- NOTE | 2018-12-05 14:18 | Progress Note ---
DATE: 12/05/2018 Cardiology Progress Note SUBJECTIVE: The patient is found sleeping comfortably. He states that his breathing difficulties has improved. Denies any chest pain. OBJECTIVE: VITAL SIGNS: Temperature 98.3, heart rate is 82, respirations 16, blood pressure is 101/66, ox saturation 95% on 3 L nasal cannula. GENERAL: He is a chronically ill-appearing elderly man lying comfortably in bed, no apparent distress. CARDIOVASCULAR: Regular rate and rhythm. No murmurs. LUNGS: Diminished breath sounds at bases. ABDOMEN: Soft, nontender, obese. EXTREMITIES: Trace edema. CARDIOVASCULAR MEDICATIONS: Reviewed, include metoprolol, fish oil, Plavix, valsartan, aspirin, atorvastatin, Lasix continuous drip. LABORATORY VALUES: Reviewed. Hemoglobin 12.2, creatinine 0.9. IMPRESSION: 1. Acute on chronic systolic congestive heart failure. 2. Pleural effusion status post thoracentesis. 3. Coronary artery disease status post percutaneous coronary intervention. 4. Human immunodeficiency virus. 5. Chronic deconditioning. 6. Implantable cardioverter-defibrillator. RECOMMENDATIONS: Change Lasix to 40 mg q.12 hours. Continue close hemodynamic, telemetry, and laboratory monitoring. He has been weaned off dobutamine. He is making excellent urine. The patient will need a cardiac catheterization to review his coronary anatomy once he is able to lay flat and more stable. DO MUNIR Adames/MODL /[id number]
[2018-12-05] MEDS: ATORVASTATIN 10 MG TAB PO SCH (20:33)
[2018-12-05] MEDS: FUROSEMIDE INJ 10 MG/ML 4 ML VIAL IV SCH (20:33)
[2018-12-05] MEDS: ROPINIROLE HCL 0.25 MG TAB PO SCH (20:33)
--- NOTE | 2018-12-05 20:44 | NUR ---
called and spoke to Jeancarlos [employer], clarifying patient status, she stated keep patient on ICU status for right now.
[2018-12-06] VITALS (17 sets, daily range): BP systolic 93–128; BP diastolic 55–74
[2018-12-06] MEDS: ALBUTEROL/IPRATROPIUM 3 ML NEB INH SCH ×4 (00:30→20:40)
[2018-12-06] MEDS: CEFEPIME 1GM/NS 0.9% 50 ML 50 ML IV SCH ×2 (04:09→15:51)
[2018-12-06 04:45] LABS: BASOPHILS % 0.3 % (0.0-1.0); EOSINOPHILS # (AUTO) 0.3 (0.0-0.4); EOSINOPHILS % 4.3 % (0.0-6.0); HEMATOCRIT 35.9 % (38.2-49.6); HEMOGLOBIN 12.3 g/dL (14.0-18.0); LYMPHOCYTES # (AUTO) 0.9 (1.0-3.2); LYMPHOCYTES % 11.9 % (18.0-39.1); MEAN CORPUSCULAR HEMOGLOBIN 36.6 pg (28-32); MEAN CORPUSCULAR HGB CONC 34.3 g/dL (31-35); MEAN CORPUSCULAR VOLUME 106.8 fL (81-99); MONOCYTES # (AUTO) 0.8 (0.2-0.8); MONOCYTES % 10.7 % (4.4-11.3); NEUTROPHILS # (AUTO) 5.4 (2.1-6.9); NEUTROPHILS % 72.4 % (38.7-80.0); PLATELET COUNT 205 x10e3/uL (140-360); RED BLOOD COUNT 3.36 x10e6/uL (4.3-5.7); RED CELL DISTRIBUTION WIDTH 12.8 % (11.7-14.4)
[2018-12-06 04:58] LABS: ALANINE AMINOTRANSFERASE 21 IU/L (0-55); ALBUMIN 2.4 g/dL (3.5-5.0); ALBUMIN/GLOBULIN RATIO 0.7 (0.8-2.0); ALKALINE PHOSPHATASE 53 IU/L (40-150); BLOOD UREA NITROGEN 25 mg/dL (7-26); BUN/CREATININE RATIO 29 (6-25); CALCIUM 9.2 mg/dL (8.4-10.2); CARBON DIOXIDE 32 mmol/L (22-29); CHLORIDE 98 mmol/L (98-107); CREATININE, SERUM 0.86 mg/dL (0.72-1.25); EST GLOMERULAR FILTRATION RATE > 60 ML/MIN (60-); GLUCOSE 88 mg/dL (74-118); SODIUM 139 mmol/L (136-145)
[2018-12-06] MEDS: GUAIFENESIN 600 MG TAB PO SCH ×4 (05:18→23:56)
[2018-12-06] MEDS: LEVOTHYROXINE SODIUM 50 MCG TAB PO SCH (05:18)
--- NOTE | 2018-12-06 05:44 | Diagnostic Imaging Report ---
Examination: Single AP view of the chest. COMPARISON: December 03, 2018 INDICATION: Congestive heart failure DISCUSSION: Lines/tubes: Multi lead cardiac device. Lungs: Interstitial and alveolar edema. Increased right lower lung.. Pleura: Small effusions Heart and mediastinum: Heart enlarged. Bones and soft tissues: No acute bony abnormalities. IMPRESSION: 1. Interstitial and alveolar edema. Signed by: Dr. Kevin Siddiqi M.D. on 12/06/2018 5:41 AM
[2018-12-06] MEDS: FUROSEMIDE INJ 10 MG/ML 4 ML VIAL IV SCH ×2 (08:16→20:29)
[2018-12-06] MEDS: TAMSULOSIN HCL 0.4 MG CAP PO SCH (08:16)
[2018-12-06] MEDS: ASPIRIN 81 MG CHEW TAB PO SCH (08:16)
[2018-12-06] MEDS: FAMOTIDINE 20 MG TAB PO SCH ×2 (08:16→16:35)
[2018-12-06] MEDS: COMBIVIR PO SCH (08:16)
[2018-12-06] MEDS: VALSARTAN/SACUBITRIL 24MG/26MG 1 EA TAB PO SCH ×2 (08:16→16:35)
[2018-12-06] MEDS: DOCUSATE SODIUM 100 MG CAP PO SCH ×2 (08:16→16:35)
[2018-12-06] MEDS: NORVIR 100 MG PO SCH (08:16)
[2018-12-06] MEDS: GUAIFENESIN 600MG/DEXTROMETHORPHAN 30MG TABSR PO SCH ×2 (08:17→16:36)
[2018-12-06] MEDS: VALACYCLOVIR HCL 500 MG TAB PO SCH (08:17)
[2018-12-06] MEDS: POLYETHYLENE GLYCOL 3350 17 GM PACK PO SCH (08:17)
[2018-12-06] MEDS: ALLOPURINOL 300 MG TAB PO SCH (08:17)
[2018-12-06] MEDS: [UNRECOGNIZED DRUG - OTHER] PO SCH ×2 (08:17→16:35)
[2018-12-06] MEDS: OMEGA 3 POLYUNSAT FATTY ACIDS 1000 MG SOFTGEL PO SCH ×2 (08:17→16:36)
[2018-12-06] MEDS: CLOPIDOGREL BISULFATE 75 MG TAB PO SCH (08:17)
[2018-12-06] MEDS: BALSAM PERU/CASTOR OIL 60 GM OINT...G. TP SCH ×2 (08:17→16:36)
[2018-12-06] MEDS: METOPROLOL SUCCINATE 25 MG TAB XL PO SCH (08:17)
[2018-12-06] MEDS: POTASSIUM CHLORIDE 20 MEQ TAB CR PO SCH ×2 (08:17→16:36)
--- NOTE | 2018-12-06 14:58 | Progress Note ---
DATE: 12/06/2018 SUBJECTIVE: The patient is feeling better. He has less dyspnea. He has no fever. He has no cough. PHYSICAL EXAMINATION: VITAL SIGNS: The blood pressure is 95/72 and the saturation is 97%. The pulse is 81. HEENT: No facial swelling or erythema. The nasal mucosa is normal. The oropharynx is normal. LYMPHATIC: No submandibular, cervical, or supraclavicular adenopathy. CARDIAC: Regular rate and rhythm with normal S1, S2. There are no murmurs or rubs heard. LUNGS: Auscultation of lungs reveals clear breath sounds bilaterally. There is no wheezing. ABDOMEN: Soft, nontender. There is no rebound or guarding. LABORATORY DATA: The white blood cell count and blood counts within normal limits. The electrolytes were normal. IMPRESSION: 1. Cymkx-xg-jqbtcve systolic congestive heart failure. 2. Paroxysmal atrial fibrillation. 3. Human immunodeficiency virus. PLAN: 1. The patient will be moved to the medical short today. 2. He will continue intermittent Lasix. 3. Continue prior cardiac regimen. 4. Complete antibiotics. Erickson Flower MD [facility]/MODL /[id number]
--- NOTE | 2018-12-06 17:00 | NUR ---
received pt report from engineer intern. pt in stable condition, condition is improving. AOx3, o2 3L via nc. pt has L picc double lumen, patent. R wrist 20 g, patent. 1.2 L fluid restriction. pt straight caths himself PRN and needs assistance to bedside commode to have BM. there is stage 2 sacral wound, dressing is clean,dry,intact and last changed today.
--- NOTE | 2018-12-06 18:54 | Progress Note ---
DATE: 12/06/2018 Cardiology Progress Note SUBJECTIVE: The patient overall feeling better. No events. OBJECTIVE: VITAL SIGNS: Temperature is 98.2, heart rate is 81, respirations are 16, blood pressure is 95/72, oxygen saturation 95% on 3 L nasal cannula. GENERAL: He is a chronically ill-appearing elderly male, seated at bedside. CARDIOVASCULAR: Regular rate and rhythm. LUNGS: Clear to auscultation at apices. Decreased breath sounds at bases. ABDOMEN: Soft, nontender, nondistended. EXTREMITIES: No edema. MEDICATIONS: Cardiovascular medications reviewed. LABORATORY DATA: Reviewed. Chest x-ray shows interstitial and alveolar edema. IMPRESSION: 1. Acute-on chronic systolic congestive heart failure. 2. Pleural effusion, status post thoracentesis. 3. Coronary artery disease, status post percutaneous coronary intervention. 4. Human immunodeficiency virus. 5. Chronic deconditioning. 6. Presence of implantable cardioverter-defibrillator. RECOMMENDATIONS: Continue current diuretics with Lasix 40 mg IV q.12 hours. Continue close hemodynamic, telemetry, and laboratory monitoring. He has been successfully weaned off dobutamine. He is hemodynamically stable. He continues to make good urine output. The patient will need cardiac catheterization to review his coronary anatomy once he is more stable. Dion Bell DO [facility]/MODL /[id number]
[2018-12-06] MEDS: ATORVASTATIN 10 MG TAB PO SCH (20:29)
[2018-12-06] MEDS: ROPINIROLE HCL 0.25 MG TAB PO SCH (20:29)
--- NOTE | 2018-12-06 23:00 | NUR ---
Patient refused bed alarm.
[2018-12-07] VITALS (10 sets, daily range): BP systolic 94–118; BP diastolic 50–66
[2018-12-07] MEDS: ALBUTEROL/IPRATROPIUM 3 ML NEB INH SCH ×4 (01:00→19:35)
[2018-12-07] MEDS ORDERED: SODIUM CHLORIDE 0.9% 250ML 250 ML ONE (03:09)
[2018-12-07] MEDS: CEFEPIME 1GM/NS 0.9% 50 ML 50 ML IV SCH ×2 (03:42→14:34)
[2018-12-07 03:54] LABS: BASOPHILS % 0.2 % (0.0-1.0); EOSINOPHILS # (AUTO) 0.2 (0.0-0.4); EOSINOPHILS % 3.3 % (0.0-6.0); HEMATOCRIT 27.1 % (38.2-49.6); HEMOGLOBIN 8.9 g/dL (14.0-18.0); LYMPHOCYTES # (AUTO) 0.7 (1.0-3.2); LYMPHOCYTES % 12.3 % (18.0-39.1); MEAN CORPUSCULAR HEMOGLOBIN 36.8 pg (28-32); MEAN CORPUSCULAR HGB CONC 32.8 g/dL (31-35); MONOCYTES # (AUTO) 0.6 (0.2-0.8); MONOCYTES % 10.3 % (4.4-11.3); NEUTROPHILS # (AUTO) 4.1 (2.1-6.9); NEUTROPHILS % 73.5 % (38.7-80.0); PLATELET COUNT 149 x10e3/uL (140-360); RED BLOOD COUNT 2.42 x10e6/uL (4.3-5.7); RED CELL DISTRIBUTION WIDTH 12.6 % (11.7-14.4)
[2018-12-07 04:13] LABS: ANION GAP 11.8 mmol/L (8-16); BLOOD UREA NITROGEN 23 mg/dL (7-26); BUN/CREATININE RATIO 28 (6-25); CALCIUM 8.9 mg/dL (8.4-10.2); CARBON DIOXIDE 31 mmol/L (22-29); CHLORIDE 100 mmol/L (98-107); CREATININE, SERUM 0.81 mg/dL (0.72-1.25); EST GLOMERULAR FILTRATION RATE > 60 ML/MIN (60-); GLUCOSE 105 mg/dL (74-118); POTASSIUM 3.8 mmol/L (3.5-5.1); SODIUM 139 mmol/L (136-145)
[2018-12-07] MEDS ORDERED: GUAIFENESIN/CODEINE 10 ML CUP PO PRN (04:45)
[2018-12-07] MEDS: LEVOTHYROXINE SODIUM 50 MCG TAB PO SCH (05:12)
--- NOTE | 2018-12-07 05:14 | NUR ---
Dressing to buttocks done. PICC line dressing changed.
--- NOTE | 2018-12-07 07:00 | NUR ---
received am report from rn. pt is awake resting comfortably in bed. call light within reach, bed in lowest position, side rails up
[2018-12-07] MEDS: FUROSEMIDE INJ 10 MG/ML 4 ML VIAL IV SCH ×2 (07:59→20:52)
[2018-12-07] MEDS: FAMOTIDINE 20 MG TAB PO SCH ×2 (07:59→17:49)
[2018-12-07] MEDS: VALSARTAN/SACUBITRIL 24MG/26MG 1 EA TAB PO SCH ×2 (08:00→17:49)
[2018-12-07] MEDS: TAMSULOSIN HCL 0.4 MG CAP PO SCH (08:00)
[2018-12-07] MEDS: POTASSIUM CHLORIDE 20 MEQ TAB CR PO SCH ×2 (08:00→17:50)
[2018-12-07] MEDS: ASPIRIN 81 MG CHEW TAB PO SCH (08:00)
[2018-12-07] MEDS: DOCUSATE SODIUM 100 MG CAP PO SCH ×2 (08:00→17:49)
[2018-12-07] MEDS: OMEGA 3 POLYUNSAT FATTY ACIDS 1000 MG SOFTGEL PO SCH ×2 (08:01→17:50)
[2018-12-07] MEDS: METOPROLOL SUCCINATE 25 MG TAB XL PO SCH (08:01)
[2018-12-07] MEDS: CLOPIDOGREL BISULFATE 75 MG TAB PO SCH (08:01)
[2018-12-07] MEDS: ALLOPURINOL 300 MG TAB PO SCH (08:01)
[2018-12-07] MEDS: VALACYCLOVIR HCL 500 MG TAB PO SCH (08:02)
[2018-12-07] MEDS: NORVIR 100 MG PO SCH (08:03)
[2018-12-07] MEDS: [UNRECOGNIZED DRUG - OTHER] PO SCH ×2 (08:03→17:51)
[2018-12-07] MEDS: COMBIVIR PO SCH (08:03)
[2018-12-07] MEDS: POLYETHYLENE GLYCOL 3350 17 GM PACK PO SCH (08:04)
[2018-12-07] MEDS: BALSAM PERU/CASTOR OIL 60 GM OINT...G. TP SCH ×2 (09:00→17:00)
--- NOTE | 2018-12-07 09:33 | Progress Note ---
DATE: 12/07/2018 SUBJECTIVE: The patient feels better overall. He has less cough. He has less chest pain and less congestion. PHYSICAL EXAMINATION: VITAL SIGNS: The blood pressure is 118/66 and the saturation is 98%. Respiratory rate is normal. The pulse is 85. HEENT: No facial swelling or erythema. CARDIAC: Reveals a regular rate and rhythm with normal S1 and S2. There are no murmurs or rubs heard. LUNGS: Auscultation of lungs reveals clear breath sounds bilaterally. There is no wheezing. ABDOMEN: Soft and nontender. There is no rebound or guarding. EXTREMITIES: Show no leg edema or calf tenderness. There is no cyanosis or clubbing. SKIN: Shows no rashes. NEUROLOGICAL: Shows no focal abnormalities. IMPRESSION: 1. Alkia-zo-kdgjxyd systolic congestive heart failure. 2. Paroxysmal atrial fibrillation. 3. Human immunodeficiency virus. PLAN: 1. Continue current cardiac regimen. 2. Monitor creatinine and electrolytes. 3. Out of bed as tolerated. Erickson Flower MD [facility]/MODL /[id number]
--- NOTE | 2018-12-07 17:14 | Progress Note ---
DATE: 12/07/2018 Cardiology Progress Note SUBJECTIVE: The patient is feeling overall better, respirations and shortness of breath have improved. OBJECTIVE: VITAL SIGNS: Temperature is 96.4, heart rate is 84, respirations are 18, and oxygen saturation is 98% on 3 L nasal cannula, blood pressure is 118/66. GENERAL: He is a chronically ill-appearing elderly male, lying comfortably in bed, no apparent distress. CARDIOVASCULAR: Regular rate and rhythm. LUNGS: Diminished breath sounds at the bases. ABDOMEN: Soft, obese, nontender. EXTREMITIES: Trace edema. CARDIOVASCULAR MEDICATIONS: Reviewed. LABORATORY DATA: Reviewed. IMPRESSION: 1. Acute on chronic systolic congestive heart failure. 2. Pleural effusion status post thoracentesis. 3. Coronary disease status post percutaneous coronary intervention. 4. Human immunodeficiency virus. 5. Chronic deconditioning. 6. Presence of implantable cardioverter-defibrillator. RECOMMENDATIONS: Continue current cardiovascular medications including Lasix q.12 hours. Continue telemetry, hemodynamic, and laboratory monitoring. The patient will require cardiac catheterization next week with possible intervention. Dion Bell DO [facility]/MODL /[id number]
[2018-12-07] MEDS: RIVAROXABAN 20 MG TABLET PO SCH (17:50)
[2018-12-07] MEDS: ROPINIROLE HCL 0.25 MG TAB PO SCH (20:52)
[2018-12-07] MEDS: ATORVASTATIN 10 MG TAB PO SCH (20:52)
[2018-12-08] VITALS (13 sets, daily range): BP systolic 92–125; BP diastolic 53–71
[2018-12-08] MEDS: ALBUTEROL/IPRATROPIUM 3 ML NEB INH SCH ×4 (00:20→18:40)
[2018-12-08] MEDS: CEFEPIME 1GM/NS 0.9% 50 ML 50 ML IV SCH ×2 (03:39→14:45)
[2018-12-08 03:46] LABS: BASOPHILS % 0.5 % (0.0-1.0); EOSINOPHILS # (AUTO) 0.2 (0.0-0.4); EOSINOPHILS % 3.4 % (0.0-6.0); HEMATOCRIT 36.1 % (38.2-49.6); HEMOGLOBIN 11.9 g/dL (14.0-18.0); LYMPHOCYTES % 15.3 % (18.0-39.1); MEAN CORPUSCULAR HEMOGLOBIN 36.3 pg (28-32); MEAN CORPUSCULAR VOLUME 110.1 fL (81-99); MONOCYTES # (AUTO) 0.7 (0.2-0.8); MONOCYTES % 10.6 % (4.4-11.3); NEUTROPHILS # (AUTO) 4.6 (2.1-6.9); NEUTROPHILS % 69.7 % (38.7-80.0); PLATELET COUNT 211 x10e3/uL (140-360); RED BLOOD COUNT 3.28 x10e6/uL (4.3-5.7); RED CELL DISTRIBUTION WIDTH 12.7 % (11.7-14.4)
[2018-12-08 04:10] LABS: ALANINE AMINOTRANSFERASE 26 IU/L (0-55); ALBUMIN 2.3 g/dL (3.5-5.0); ALBUMIN/GLOBULIN RATIO 0.7 (0.8-2.0); ALKALINE PHOSPHATASE 56 IU/L (40-150); ANION GAP 12.2 mmol/L (8-16); BLOOD UREA NITROGEN 23 mg/dL (7-26); BUN/CREATININE RATIO 26 (6-25); CALCIUM 9.4 mg/dL (8.4-10.2); CARBON DIOXIDE 33 mmol/L (22-29); CHLORIDE 100 mmol/L (98-107); EST GLOMERULAR FILTRATION RATE > 60 ML/MIN (60-); GLUCOSE 118 mg/dL (74-118); POTASSIUM 4.2 mmol/L (3.5-5.1); SODIUM 141 mmol/L (136-145)
[2018-12-08] MEDS ORDERED: ZOLPIDEM TARTRATE 5 MG TAB PO PRN (05:00)
[2018-12-08] MEDS ORDERED: MELATONIN 5 MG TABLET PO PRN (05:00)
[2018-12-08] MEDS: LEVOTHYROXINE SODIUM 50 MCG TAB PO SCH (05:56)
--- NOTE | 2018-12-08 06:56 | NUR ---
RECEIVED PATIENT RESTING IN BED. NO ACUTE DISTRESS NOTED. DENIES PAIN OR DISCOMFORT AT THIS TIME. CALL LIGHT WITHIN REACH. BED IN THE LOWEST POSITION. BED ALARM ON.
[2018-12-08] MEDS: VALSARTAN/SACUBITRIL 24MG/26MG 1 EA TAB PO SCH ×2 (08:42→16:44)
[2018-12-08] MEDS: TAMSULOSIN HCL 0.4 MG CAP PO SCH (08:42)
[2018-12-08] MEDS: FAMOTIDINE 20 MG TAB PO SCH ×2 (08:42→16:44)
[2018-12-08] MEDS: FUROSEMIDE INJ 10 MG/ML 4 ML VIAL IV SCH ×2 (08:42→21:02)
[2018-12-08] MEDS: ASPIRIN 81 MG CHEW TAB PO SCH (08:42)
[2018-12-08] MEDS: METOPROLOL SUCCINATE 25 MG TAB XL PO SCH (08:43)
[2018-12-08] MEDS: POTASSIUM CHLORIDE 20 MEQ TAB CR PO SCH ×2 (08:43→16:44)
[2018-12-08] MEDS: CLOPIDOGREL BISULFATE 75 MG TAB PO SCH (08:43)
[2018-12-08] MEDS: BALSAM PERU/CASTOR OIL 60 GM OINT...G. TP SCH ×2 (08:43→15:14)
[2018-12-08] MEDS: OMEGA 3 POLYUNSAT FATTY ACIDS 1000 MG SOFTGEL PO SCH ×2 (08:43→16:44)
[2018-12-08] MEDS: ALLOPURINOL 300 MG TAB PO SCH (08:43)
[2018-12-08] MEDS: COMBIVIR PO SCH (08:46)
[2018-12-08] MEDS: NORVIR 100 MG PO SCH (08:46)
[2018-12-08] MEDS: DOCUSATE SODIUM 100 MG CAP PO SCH ×2 (08:46→16:44)
[2018-12-08] MEDS: [UNRECOGNIZED DRUG - OTHER] PO SCH ×2 (08:46→16:45)
[2018-12-08] MEDS: POLYETHYLENE GLYCOL 3350 17 GM PACK PO SCH (08:47)
--- NOTE | 2018-12-08 13:22 | Progress Note ---
DATE: 12/08/2018 Pulmonary Critical Care Progress Note SUBJECTIVE: The patient feels better. He has less dyspnea. He is not complaining of chest pain. He has minimal cough. He has no abdominal pain. He has no leg swelling. PHYSICAL EXAMINATION: VITAL SIGNS: The patient is afebrile. The vital signs are stable. HEENT: Shows no facial swelling or erythema. CARDIAC: Reveals regular rate and rhythm with normal S1, S2. LUNGS: Auscultation of lungs reveals crackles at the bases. There is no wheezing. ABDOMEN: Soft, nontender. There is no rebound or guarding. EXTREMITIES: Show no leg edema or calf tenderness. There is no cyanosis or clubbing. SKIN: Shows no rashes. IMPRESSION: 1. Pzqzw-dt-uxwzkwv systolic heart failure. 2. Paroxysmal atrial fibrillation. 3. Systolic cardiomyopathy. 4. Human immunodeficiency virus. PLAN: 1. Continue current cardiac regimen. 2. Continue current anti-retroviral regimen. 3. Out of bed as tolerated. 4. Discussed disposition with Dr. Sinha and with Cardiology. Erickson Flower MD [facility]/ANISH /[id number]
--- NOTE | 2018-12-08 14:35 | NUR ---
Visit made by the Spiritual Care Department Pastoral Visitor, Forrest Oh. PV provided pastoral presence, hospitality, and supportive listening. Pastoral Visitor informed pt/family of the scope of [employer] and availability. DAVID FLORES [employer] Work[employer] Spiritual Care Department O: [phone] Pager: [phone] ([phone] calling from)
--- NOTE | 2018-12-08 15:37 | Progress Note ---
DATE: 12/08/2018 Cardiology Progress Note SUBJECTIVE: The patient is overall feeling better. Still reports cough with speaking. OBJECTIVE: VITAL SIGNS: Temperature is 97.6, heart rate is 100, respirations are 19, blood pressure is 125/71, ox saturation 97% on room air. GENERAL: Chronically ill-appearing elderly man, lying comfortably in bed. CARDIOVASCULAR: Irregularly irregular. LUNGS: Diminished breath sounds in the bases. ABDOMEN: Soft, nontender, nondistended. EXTREMITIES: Trace edema. CARDIOVASCULAR MEDICATIONS: Reviewed. LABORATORY DATA: Reviewed. IMPRESSION: 1. Acute on chronic systolic congestive heart failure. 2. Coronary artery disease status post percutaneous coronary intervention. 3. Pleural effusion status post thoracentesis. 4. HIV. 5. Chronic deconditioning. 6. Presence of implantable cardioverter-defibrillator. RECOMMENDATIONS: Continue current cardiovascular medications including Lasix and metoprolol. Increase Toprol for better rate control as blood pressure can tolerate. Continue to closely monitor his hemodynamics and telemetry. The patient will require cardiac catheterization next week with possible intervention. Dion Bell DO [facility]/MODL /[id number]
[2018-12-08] MEDS: RIVAROXABAN 20 MG TABLET PO SCH (16:44)
--- NOTE | 2018-12-08 19:04 | NUR ---
REPORT GIVEN TO ONCOMING NURSE. PATIENT IS IN STABLE CONDITION. PATIENT DENIES PAIN OR DISCOMFORT AT THIS TIME. CALL LIGHT WITHIN REACH. BED IN THE LOWEST POSITION.
[2018-12-08] MEDS: ATORVASTATIN 10 MG TAB PO SCH (21:02)
[2018-12-08] MEDS: ROPINIROLE HCL 0.25 MG TAB PO SCH (21:02)
[2018-12-09] VITALS (10 sets, daily range): BP systolic 90–138; BP diastolic 57–78
[2018-12-09] MEDS: ALBUTEROL/IPRATROPIUM 3 ML NEB INH SCH ×4 (01:00→19:15)
[2018-12-09] MEDS: CEFEPIME 1GM/NS 0.9% 50 ML 50 ML IV SCH ×2 (03:23→15:30)
[2018-12-09 03:48] LABS: BASOPHILS % 0.1 % (0.0-1.0); EOSINOPHILS # (AUTO) 0.2 (0.0-0.4); EOSINOPHILS % 3.4 % (0.0-6.0); HEMATOCRIT 36.9 % (38.2-49.6); HEMOGLOBIN 12.7 g/dL (14.0-18.0); LYMPHOCYTES % 14.1 % (18.0-39.1); MEAN CORPUSCULAR HEMOGLOBIN 37.4 pg (28-32); MEAN CORPUSCULAR HGB CONC 34.4 g/dL (31-35); MEAN CORPUSCULAR VOLUME 108.5 fL (81-99); MONOCYTES # (AUTO) 0.8 (0.2-0.8); MONOCYTES % 11.6 % (4.4-11.3); NEUTROPHILS # (AUTO) 4.8 (2.1-6.9); NEUTROPHILS % 70.2 % (38.7-80.0); PLATELET COUNT 225 x10e3/uL (140-360); RED CELL DISTRIBUTION WIDTH 12.8 % (11.7-14.4)
[2018-12-09 04:08] LABS: ANION GAP 13.2 mmol/L (8-16); BLOOD UREA NITROGEN 19 mg/dL (7-26); BUN/CREATININE RATIO 23 (6-25); CALCIUM 9.1 mg/dL (8.4-10.2); CARBON DIOXIDE 33 mmol/L (22-29); CHLORIDE 98 mmol/L (98-107); CREATININE, SERUM 0.83 mg/dL (0.72-1.25); EST GLOMERULAR FILTRATION RATE > 60 ML/MIN (60-); GLUCOSE 123 mg/dL (74-118); MAGNESIUM 1.6 MG/DL (1.3-2.1); POTASSIUM 4.2 mmol/L (3.5-5.1); SODIUM 140 mmol/L (136-145)
[2018-12-09] MEDS ORDERED: PROMETHAZINE/CODEINE 5 ML UDC PO PRN (04:30)
[2018-12-09] MEDS: LEVOTHYROXINE SODIUM 50 MCG TAB PO SCH (05:27)
--- NOTE | 2018-12-09 07:10 | NUR ---
Pt received resting in bed. Alert and oriented x3. Oriented to staff and surroundings. Encouraged to press call lopez if help needed. Pt verbalized understanding of teaching. Will monitor
--- NOTE | 2018-12-09 07:37 | Diagnostic Imaging Report ---
Examination: Single AP view of the chest. COMPARISON: Chest radiograph 12/06/2018. INDICATION: Congestive heart failure DISCUSSION: Lines/tubes: Left-sided AICD device in unchanged position. Lungs: There are increased bilateral interstitial and airspace opacities. Pleura: Small bilateral pleural effusions. Heart and mediastinum: Moderate cardiomegaly. Bones and soft tissues: No acute bony abnormalities. Degenerative changes in the thoracic spine. IMPRESSION: Increasing pulmonary edema. Signed by: Dr. Spike Pelaez MD on 12/09/2018 7:33 AM
[2018-12-09] MEDS: NORVIR 100 MG PO SCH (09:00)
[2018-12-09] MEDS: [UNRECOGNIZED DRUG - OTHER] PO SCH ×2 (09:00→16:21)
[2018-12-09] MEDS: COMBIVIR PO SCH (09:00)
[2018-12-09] MEDS: POLYETHYLENE GLYCOL 3350 17 GM PACK PO SCH (09:00)
[2018-12-09] MEDS: FAMOTIDINE 20 MG TAB PO SCH ×2 (09:33→16:21)
[2018-12-09] MEDS: TAMSULOSIN HCL 0.4 MG CAP PO SCH (09:33)
[2018-12-09] MEDS: DOCUSATE SODIUM 100 MG CAP PO SCH ×2 (09:33→16:21)
[2018-12-09] MEDS: VALSARTAN/SACUBITRIL 24MG/26MG 1 EA TAB PO SCH ×2 (09:33→16:21)
[2018-12-09] MEDS: ASPIRIN 81 MG CHEW TAB PO SCH (09:33)
[2018-12-09] MEDS: FUROSEMIDE INJ 10 MG/ML 4 ML VIAL IV SCH ×2 (09:33→21:00)
[2018-12-09] MEDS: OMEGA 3 POLYUNSAT FATTY ACIDS 1000 MG SOFTGEL PO SCH ×2 (09:34→16:22)
[2018-12-09] MEDS: CLOPIDOGREL BISULFATE 75 MG TAB PO SCH (09:34)
[2018-12-09] MEDS: BALSAM PERU/CASTOR OIL 60 GM OINT...G. TP SCH ×2 (09:34→16:22)
[2018-12-09] MEDS: POTASSIUM CHLORIDE 20 MEQ TAB CR PO SCH ×2 (09:34→16:22)
[2018-12-09] MEDS: ALLOPURINOL 300 MG TAB PO SCH (09:34)
--- NOTE | 2018-12-09 10:26 | Progress Note ---
DATE: 12/09/2018 SUBJECTIVE: The patient feels better overall. He is not short of breath. He is not coughing. He does not complain of chest pain. PHYSICAL EXAMINATION: VITAL SIGNS: The patient is afebrile. The blood pressure is 108/65 and saturation is 97% on 2 L. The pulse is 93. HEENT: Shows no facial swelling or erythema. The nasal mucosa is normal. The oropharynx is normal. LYMPHATIC: Shows no submandibular, cervical, or supraclavicular adenopathy. CARDIAC: Reveals a regular rate and rhythm with a normal S1 and S2. There are no murmurs or rubs. LUNGS: Auscultation of the lungs reveals rhonchorous breath sounds bilaterally. There is no wheezing. ABDOMEN: Soft, nontender. There is no rebound or guarding. EXTREMITIES: Show no leg edema or calf tenderness. There is no cyanosis or clubbing. SKIN: Shows no rashes. NEUROLOGICAL: Shows no focal abnormalities. IMPRESSION: 1. Acute on chronic systolic congestive heart failure. 2. Atrial fibrillation. 3. Coronary artery disease. 4. HIV. PLAN: 1. Continue current regimen. 2. Discuss possible intervention with Cardiology. MD KAREN Foster/ANISH /[id number]
--- NOTE | 2018-12-09 11:10 | NUR ---
EDUCATED ABOUT IMM, SIGNED, FILED IN CHART, WITH COPY LEFT WITH FAMILY AT BEDSIDE.
[2018-12-09] MEDS: METOPROLOL SUCCINATE 25 MG TAB XL PO SCH (13:39)
--- NOTE | 2018-12-09 13:42 | Progress Note ---
DATE: 12/09/2018 Cardiology Progress Note SUBJECTIVE: The patient is feeling better, less short of breath. OBJECTIVE: VITAL SIGNS: Temperature is 97.6, heart rate is 92, respirations are 22, blood pressure is 116/69, ox saturation 96% on 2 L nasal cannula. GENERAL: He is a chronically ill-appearing elderly male, lying comfortably in bed. CARDIOVASCULAR: Regular rate and rhythm. LUNGS: Diminished breath sounds at bases. ABDOMEN: Soft, nontender, nondistended. EXTREMITIES: Trace edema. CARDIOVASCULAR MEDICATIONS: Reviewed. LABORATORY DATA: Reviewed. Hemoglobin 12.7, creatinine 0.83. TELEMETRY: Monitoring revealed ventricular paced rhythm. IMPRESSION: 1. Acute on chronic systolic congestive heart failure. 2. Coronary artery disease status post percutaneous coronary intervention. 3. Pleural effusion status post thoracentesis. 4. HIV. 5. Chronic deconditioning. 6. Presence of implantable cardioverter-defibrillator. RECOMMENDATIONS: Continue current cardiovascular medications. His respiratory status has improved. Recommend physical therapy. His heart rate is improved on Toprol-XL. The patient will require cardiac catheterization on Sunday of this week. Dion Bell DO BM/MODL /[id number]
--- NOTE | 2018-12-09 14:20 | NUR ---
REC'D REPORT FROM [facility] ON MED SURG 1.
--- NOTE | 2018-12-09 14:50 | NUR ---
Pt is transferring to room 289 from room 104. Handoff given to oncoming nurse.
--- NOTE | 2018-12-09 15:00 | NUR ---
REC'D PATIENT A TRANSFER FROM MED SURG 1. PATIENT ARRIVED IN ROOM BED WITH AT THE BEDSIDE. PATIENT ON NASAL CANNULA 2L/MIN, NO S/S OF DISTRESS, NO COMPLAINTS of pain. SIDE RAILS UP X2, BED IN LOWEST POSITION, AND CALL SAMUEL WITHIN REACH.
[2018-12-09] MEDS ORDERED: SODIUM CHLORIDE 0.9% 250ML 250 ML ONE (15:47)
[2018-12-09] MEDS: RIVAROXABAN 20 MG TABLET PO SCH (16:22)
--- NOTE | 2018-12-09 17:44 | NUR ---
PATIENT IS ON SEMI-FOWLERS POSITION, NO S/S OF DISTRESS, PICC LINE DOUBLE LUMEN AND RIGHT WRIST IV ARE PATENT AND CLEAN, AT THE BEDSIDE. SIDE RAILS UP X2, BED IN LOWEST POSITION, AND CALL SAMUEL WITHIN REACH.
--- NOTE | 2018-12-09 19:42 | NUR ---
RECEIVED PT IN BED AOX3 .DENIES PAIN .RESPIRATING ARE EVEN AND UNLABORED .PT IS 1.2 L FLUID RESTRICTION .CONTINUE TO MONITOR
[2018-12-09] MEDS: ROPINIROLE HCL 0.25 MG TAB PO SCH (20:44)
[2018-12-09] MEDS: ATORVASTATIN 10 MG TAB PO SCH (20:44)
[2018-12-10] VITALS (9 sets, daily range): BP systolic 95–119; BP diastolic 57–75
[2018-12-10] MEDS: CEFEPIME 1GM/NS 0.9% 50 ML 50 ML IV SCH ×2 (03:00→15:26)
[2018-12-10] MEDS: LEVOTHYROXINE SODIUM 50 MCG TAB PO SCH (06:46)
[2018-12-10] MEDS: ALBUTEROL/IPRATROPIUM 3 ML NEB INH SCH ×4 (07:02→19:30)
--- NOTE | 2018-12-10 07:11 | NUR ---
PT RESTED DURING THE NIGHT .DENIES PAIN .CALL LIGHT WITH IN REACH .CONTINUE TO MONITOR
[2018-12-10] MEDS: FUROSEMIDE INJ 10 MG/ML 4 ML VIAL IV SCH ×2 (09:00→20:32)
[2018-12-10] MEDS: COMBIVIR PO SCH (09:00)
[2018-12-10] MEDS: POLYETHYLENE GLYCOL 3350 17 GM PACK PO SCH (09:00)
[2018-12-10] MEDS: [UNRECOGNIZED DRUG - OTHER] PO SCH ×2 (09:00→17:52)
[2018-12-10] MEDS: METOPROLOL SUCCINATE 25 MG TAB XL PO SCH (09:00)
[2018-12-10] MEDS: NORVIR 100 MG PO SCH (09:00)
--- NOTE | 2018-12-10 09:07 | Progress Note ---
DATE: 12/10/2018 SUBJECTIVE: The patient feels better. He has less dyspnea. He is awaiting cardiac catheterization tomorrow. PHYSICAL EXAMINATION: VITAL SIGNS: Stable. HEENT: Shows no facial swelling or erythema. CARDIAC: Reveals a regular rate and rhythm with a normal S1 and S2. There are no murmurs or rubs. LUNGS: Auscultation of lungs reveals crackles at the bases. There is no wheezing. ABDOMEN: Soft, nontender. There is no rebound or guarding. EXTREMITIES: Show no leg edema or calf tenderness. There is no cyanosis or clubbing. IMPRESSION: 1. Acute on chronic systolic congestive heart failure. 2. Systolic cardiomyopathy with a reduced ejection fraction. 3. Left pleural effusion that has improved. 4. Human immunodeficiency virus. PLAN: 1. Await cath tomorrow. 2. Continue current cardiac regimen. 3. Complete course of antibiotics. 4. Wean oxygen. Erickson Flower MD LM/ANISH /[id number]
[2018-12-10] MEDS: FAMOTIDINE 20 MG TAB PO SCH ×2 (09:50→17:51)
[2018-12-10] MEDS: ASPIRIN 81 MG CHEW TAB PO SCH (09:51)
[2018-12-10] MEDS: DOCUSATE SODIUM 100 MG CAP PO SCH ×2 (09:52→17:00)
[2018-12-10] MEDS: VALSARTAN/SACUBITRIL 24MG/26MG 1 EA TAB PO SCH ×2 (09:52→17:51)
[2018-12-10] MEDS: TAMSULOSIN HCL 0.4 MG CAP PO SCH (09:52)
[2018-12-10] MEDS: CLOPIDOGREL BISULFATE 75 MG TAB PO SCH (09:53)
[2018-12-10] MEDS: OMEGA 3 POLYUNSAT FATTY ACIDS 1000 MG SOFTGEL PO SCH ×2 (09:53→17:52)
[2018-12-10] MEDS: POTASSIUM CHLORIDE 20 MEQ TAB CR PO SCH ×2 (09:53→17:52)
[2018-12-10] MEDS: ALLOPURINOL 300 MG TAB PO SCH (09:54)
[2018-12-10] MEDS: BALSAM PERU/CASTOR OIL 60 GM OINT...G. TP SCH ×2 (10:08→17:52)
--- NOTE | 2018-12-10 10:30 | NUR ---
Dr. Felipe was here to see pt and was asked about possible caardiac cath was planned for tomorrow. He states cardiac cath can be done outpt. Notified attending.
--- NOTE | 2018-12-10 11:28 | Progress Note ---
DATE: 12/10/2018 Cardiology Progress Note SUBJECTIVE: Mr. Gore feels well. He is tired. PHYSICAL EXAMINATION: VITAL SIGNS: Afebrile, heart rate 97, blood pressure 99/63, O2 sats 93%. CARDIOVASCULAR: Irregular rhythm, S3 gallop. LUNGS: Decreased breath sounds bilaterally. ABDOMEN: Soft. No edema. MEDICATIONS: Reviewed. TELEMETRY: Shows paced rhythm. LABORATORY DATA: Hemoglobin 12.7, serum creatinine normal. Chest x-ray done yesterday shows pulmonary edema. ASSESSMENT: Acute on chronic systolic heart failure, now better compensated. RECOMMENDATIONS: The patient has well compensated congestive heart failure. At this point, he wishes to be discharged. His medications are appropriately. We will follow him closely in the office and scheduled for the procedure as an outpatient. Mr. Gore is stable for discharge. I thank Dr. Sinha for this consultation. MD LASHAY Grier/AINSH /[id number]
--- NOTE | 2018-12-10 11:34 | NUR ---
DISCUSSED IN BARRIER ROUNDS, GB CONSULTED STATES NO HEART CATH NEEDED THIS VISIT CAN BE PREFORMED OUTPATIENT, CXR FROM YESTERDAY INDICATES INCREASED PE, ON IV LASIX AND ABX.
--- NOTE | 2018-12-10 17:16 | NUR ---
Nutrition Follow-up Note RD Recommendation(s) for Physician: - Continue current diet as ordered - Continue Ensure Compact TID to increase protein-calorie intake - The patient meets criteria for MODERATE protein-calorie malnutrition. Plan of Care: RD following, monitoring for tolerance and adequacy, ONS rec Nutrition reason for involvement: Follow up RD Assessment 12/10 Pt was discussed during AM rounds. No heart cath needed at this visit. CXR yesterday showed increased PE. Currently on IV lasix and abx. Visited pt in the room. Per , pt continued to have poor appetite. was eating pts lunch instead. Called kitchen to get something that pt likes to eat. Pt drank 100% of Ensure ordered. Will continue to monitor and follow. 12/03 73yo M, who is readmitted for CHF. Pt is well known to me from his previous admission. Thoracentesis is planned for today. Visited pt in the room. Per , pt was eating better at home than in the hospital. Discussed menu options but pt didnt like most of the items on the menu except cheeseburger. Pt has been drinking Ensure once a day at home. has noted ~5-10lbs weight loss since discharged from [facility] on 11/13/2018. Per RN, pt eats ~75-100% of his meals but complains of not liking hospital foods. No complains of nausea or vomiting. No chewing or swallowing difficulty. Ensure has been ordered. Pt doesnt want any diet education during my visit. Will continue to monitor and follow. Principal Problems/Diagnoses: 1. Ljqzf-lc-ptivysa systolic heart failure. 2. Paroxysmal atrial fibrillation. 3. Human immunodeficiency virus. 4. Left pleural effusion. PMH: hypertension, CHF, HIV, COPD, pneumonia, UTI, nephrolithiasis, coronary artery disease. GI: abdomen soft, LBM 12/10 Skin: stage II to right buttock, non-blanchable redness, stage I, 10x8cm to bilateral buttocks is also present Labs: (12/10) reviewed (12/03) reviewed Meds: K-dur, cefepime, fish oil, plavix, colace, pepcid, lasix Ht: 70in Wt: 197.13lb; 199lb BMI: 28.3kg/m2 IBW: 166lbs Malnutrition Evaluation (12/03/2018) The patient meets criteria for MODERATE protein-calorie malnutrition. Energy intake: <75% of estimated energy requirements for >7 days Weight loss: >2% in 1week (Acute) Fat loss: None Muscle loss: None Supporting Evidence: Fluid accumulation: Moderate Functional Status: no changes Nutrition Prescription (Diet Order): cardiac diet Estimated Nutritional Needs: Calories: 1638 1820kcal (18-20kcal/kg/d) Weight used: CBW Protein: 91 137g (1-1.5g/kg/d) Weight used: CBW Diet Adequacy: Not meeting calorie needs, Not meeting protein needs Diet Education Needs Assessment: Diet education indicated, but patient declined. Nutrition Care Level: low Nutrition Diagnosis: Increased protein needs related to altered skin integrity as evidenced by stage I and II pressure ulcer. Goal: Patient will meet 75-100% of estimated needs by follow up Progress: Progressing Interventions: Modified diet, Commercial beverage, Multivitamin/mineral supplement therapy Monitoring/Evaluation: Total energy intake, Total protein intake, Modified diet, Liquid supplement, Weight change Signed: Josseline Almanza MS, RD, LD
[2018-12-10] MEDS: RIVAROXABAN 20 MG TABLET PO SCH (17:52)
--- NOTE | 2018-12-10 18:40 | NUR ---
Pt in bed. Aox4 and able to verbalize needs. Denies any pain at this time. Breaths are even unlabored.
--- NOTE | 2018-12-10 19:49 | NUR ---
RECEIVED PT IN BED AOX3 .DENIES PAIN .RESPIRATING ARE EVEN AND UNLABORED .NO ORDER YET FOR CARDIAC CATH .CONTINUE TO MONITOR
[2018-12-10] MEDS: ROPINIROLE HCL 0.25 MG TAB PO SCH (20:32)
[2018-12-10] MEDS: ATORVASTATIN 10 MG TAB PO SCH (20:32)
[2018-12-11] MEDS: ALBUTEROL/IPRATROPIUM 3 ML NEB INH SCH ×3 (00:15→13:00)
[2018-12-11 00:21] VITALS: BP 110/59
[2018-12-11] MEDS: CEFEPIME 1GM/NS 0.9% 50 ML 50 ML IV SCH (03:00)
[2018-12-11 03:47] LABS: BASOPHILS % 0.5 % (0.0-1.0); EOSINOPHILS # (AUTO) 0.2 (0.0-0.4); EOSINOPHILS % 3.1 % (0.0-6.0); HEMATOCRIT 34.7 % (38.2-49.6); HEMOGLOBIN 11.8 g/dL (14.0-18.0); LYMPHOCYTES # (AUTO) 0.8 (1.0-3.2); LYMPHOCYTES % 13.4 % (18.0-39.1); MEAN CORPUSCULAR HEMOGLOBIN 36.9 pg (28-32); MEAN CORPUSCULAR VOLUME 108.4 fL (81-99); MONOCYTES # (AUTO) 0.7 (0.2-0.8); NEUTROPHILS # (AUTO) 4.4 (2.1-6.9); NEUTROPHILS % 71.5 % (38.7-80.0); PLATELET COUNT 240 x10e3/uL (140-360); RED CELL DISTRIBUTION WIDTH 12.5 % (11.7-14.4)
[2018-12-11 04:08] LABS: ANION GAP 13.4 mmol/L (8-16); BLOOD UREA NITROGEN 21 mg/dL (7-26); BUN/CREATININE RATIO 24 (6-25); CALCIUM 9.3 mg/dL (8.4-10.2); CARBON DIOXIDE 32 mmol/L (22-29); CHLORIDE 98 mmol/L (98-107); CREATININE, SERUM 0.86 mg/dL (0.72-1.25); EST GLOMERULAR FILTRATION RATE > 60 ML/MIN (60-); GLUCOSE 112 mg/dL (74-118); POTASSIUM 4.4 mmol/L (3.5-5.1); SODIUM 139 mmol/L (136-145)
[2018-12-11 04:46] VITALS: BP 109/62
[2018-12-11] MEDS ORDERED: MUCINEX DM ER1 EACH PO (05:17)
[2018-12-11] MEDS ORDERED: KLOR-CON M2020 MEQ PO (05:18)
[2018-12-11] MEDS ORDERED: Valsartan/Sacubitril PO (05:18)
[2018-12-11] MEDS ORDERED: FLOMAX0.4 MG PO (05:18)
[2018-12-11] MEDS ORDERED: FUROSEMIDE40 MG PO (05:18)
[2018-12-11] MEDS ORDERED: LIPITOR10 MG PO (05:18)
[2018-12-11] MEDS: LEVOTHYROXINE SODIUM 50 MCG TAB PO SCH (05:28)
--- NOTE | 2018-12-11 06:05 | NUR ---
PT RESTING PT STRAIGHT CATH X2 .DENIES PAIN .CALL LIGHT WITH IN REACH .CONTINUE TO MONITOR
--- NOTE | 2018-12-11 06:53 | NUR ---
REPORT GIVEN TO THE ON COMING NURSE
[2018-12-11 07:35] VITALS: BP 107/64
--- NOTE | 2018-12-11 07:35 | NUR ---
PATIENT SITTING AT BED SIDE RECEIVING NEB TREATMENT, NO DISTRESS OBSERVED. TELEMETRY BOX IN PLACE. ALL PERSONAL ITEMS CLOSE TO PATIENT. CALL LIGHT AT REACH.
[2018-12-11 07:56] VITALS: BP 107/64
[2018-12-11] MEDS: FAMOTIDINE 20 MG TAB PO SCH ×2 (07:58→16:45)
[2018-12-11] MEDS: [UNRECOGNIZED DRUG - OTHER] PO SCH ×2 (09:00→17:00)
[2018-12-11] MEDS: POLYETHYLENE GLYCOL 3350 17 GM PACK PO SCH (09:00)
[2018-12-11] MEDS: COMBIVIR PO SCH (09:00)
[2018-12-11] MEDS: DOCUSATE SODIUM 100 MG CAP PO SCH ×2 (09:00→17:00)
[2018-12-11] MEDS: NORVIR 100 MG PO SCH (09:00)
[2018-12-11] MEDS: VALSARTAN/SACUBITRIL 24MG/26MG 1 EA TAB PO SCH ×2 (09:08→17:00)
[2018-12-11] MEDS: ASPIRIN 81 MG CHEW TAB PO SCH (09:08)
[2018-12-11] MEDS: TAMSULOSIN HCL 0.4 MG CAP PO SCH (09:08)
[2018-12-11] MEDS: FUROSEMIDE INJ 10 MG/ML 4 ML VIAL IV SCH (09:08)
[2018-12-11] MEDS: CLOPIDOGREL BISULFATE 75 MG TAB PO SCH (09:14)
[2018-12-11] MEDS: METOPROLOL SUCCINATE 25 MG TAB XL PO SCH (09:14)
[2018-12-11] MEDS: OMEGA 3 POLYUNSAT FATTY ACIDS 1000 MG SOFTGEL PO SCH ×2 (09:14→17:16)
[2018-12-11] MEDS: ALLOPURINOL 300 MG TAB PO SCH (09:14)
[2018-12-11] MEDS: POTASSIUM CHLORIDE 20 MEQ TAB CR PO SCH ×2 (09:15→17:16)
[2018-12-11] MEDS: BALSAM PERU/CASTOR OIL 60 GM OINT...G. TP SCH ×2 (09:16→17:16)
--- NOTE | 2018-12-11 10:42 | NUR ---
CM SPOKE TO PATIENT AT BEDSIDE REGARDING DISCHARGE PLAN AND PLAN OF CARE. PATIENT AWARE HE WILL NEED HOME O2. PATIENT GIVEN CHOICES AND SIGNED CHOICE LETTER FOR [facility]. CLINICAL SENT TO [facility]. PATIENT APPROVED AND PENDING DELIVER Y AT BEDSIDE. [facility] Address: [address], [place] [address] FAX: [phone] LIAISON: PENG
[2018-12-11 11:27] VITALS: BP 92/56
--- NOTE | 2018-12-11 11:40 | NUR ---
PATIENT ASSISTED WITH SHOWER, LINEN CHANGED. SITTING AT BED SIDE WITH CALL LIGHT AT REACH.
[2018-12-11 15:29] VITALS: BP 103/67
--- NOTE | 2018-12-11 16:10 | Progress Note ---
DATE: 11/11/2018 Pulmonary Critical Care Progress Note SUBJECTIVE: The patient feels better. He is eager to go home. He does not have any cough or congestion. PHYSICAL EXAMINATION: VITAL SIGNS: Stable. The patient is afebrile. HEENT: Shows no facial swelling or erythema. CARDIAC: Reveals regular rate and rhythm with normal S1 and S2. LUNGS: Auscultation of lungs reveals decreased breath sounds at the bases. There is no wheezing. ABDOMEN: Soft, nontender. There is no rebound or guarding. EXTREMITIES: There is no leg edema or calf tenderness. IMPRESSION: 1. Acute on chronic systolic congestive heart failure. 2. Atrial fibrillation. 3. Human immunodeficiency virus. PLAN: 1. Discharged home. 2. The patient should follow up in the office for repeat x-ray in 1 week. 3. Continue current cardiac regimen. MD KAREN Foster/ANISH /[id number]
--- NOTE | 2018-12-11 16:17 | NUR ---
PATIENT IN BED RESTING WITH EYES CLOSED, NO DISTRESS NOTED. BED IN LOWER POSITION, CALL LIGHT AT REACH.
[2018-12-11] MEDS: RIVAROXABAN 20 MG TABLET PO SCH (17:16)
[2018-12-11] MEDS ORDERED: LEVAQUIN500 MG PO (17:29)
[2018-12-11] MEDS ORDERED: BACTRIM DS TAB1 EACH PO (17:30)
--- NOTE | 2018-12-11 18:05 | NUR ---
PATIENT DISCHARGED HOME. O2 DELIVERED AT THIS TIME TO ROOM. DISCHARGE INSTRUCTIONS, PRESCRIPTIONS, AND FOLLOW UP GIVEN TO PATIENT, HE VERBALIZED UNDERSTANDING. PICC LINE TO LEFT UPPER ARM REMOVED WITH TIP INTACT, PRESSURE APPLIED FOR 5 MINUTES. ALL PERSONAL ITEMS TAKEN WITH PATIENT. LEFT UNIT PER WHEEL CHAIR TO FRONT LOBBY IN STABLE CONDITION.
--- NOTE | 2018-12-11 22:10 | Discharge Summary ---
ADMISSION DIAGNOSES: Acute on chronic systolic CHF, acute exacerbation of chronic obstructive pulmonary disease, hypertension, atrial fibrillation, urinary tract infection present on admission, history of coronary artery disease with stents, human immunodeficiency virus, urinary retention, hypothyroidism, and hypokalemia. DISCHARGE DIAGNOSES: Acute on chronic systolic CHF, acute exacerbation of chronic obstructive pulmonary disease, hypertension, atrial fibrillation, urinary tract infection present on admission, history of coronary artery disease with stents, human immunodeficiency virus, urinary retention, hypothyroidism, and hypokalemia. HISTORY: The patient has a history of hypertension, HIV, COPD, CAD with LAD stent, atrial fibrillation, chronic systolic CHF, hyperlipidemia, hypothyroidism. SURGICAL HISTORY: Cholecystectomy, biventricular ICD, multiple kidney stone removals. FAMILY HISTORY: The patient's mom and dad had cancer. The patient's sister has CHF. SOCIAL HISTORY: Noncontributory. HOSPITAL COURSE: A 73-year-old male, who complains of shortness of breath, dyspnea on exertion, productive cough with yellow sputum and feet swelling for the last three days. He denies fever and home O2 use. He has also noticed some urinary retention. On admission, the patient's BNP was 165. He was started on Lasix b.i.d., given fluid restriction and an echo was ordered. Echo showed an EF less than 20%. The patient was started on Merrem, IV Solu-Medrol, Mucinex, oxygen p.r.n., and nebs. Chest x-ray showed worsening pulmonary edema with left pleural effusion. Ultrasound of the chest showed moderate left-sided pleural effusion with associated left lower lobe atelectasis. CT of the abdomen showed 0.5 cm nonobstructing calculus in the right inferior pole. No ureteral calculi, hydronephrosis or obstruction. Circumferential bladder wall thickening which may be secondary to the lateral obstruction. Prostatomegaly likely due to BPH. Large left pleural effusion and marked compressive atelectasis. Ultrasound of the abdomen showed no ascites. The patient then had an ultrasound guided thoracentesis on 12/03 with 1.56 L of fluid removed. The patient's urine culture came back positive for Pseudomonas, so he was started on Rocephin at admission, which was sensitive, so he continued the antibiotic. Blood cultures were negative. Sputum culture was negative. The patient's breathing became better each day. Initially, he was on a Lasix drip and then weaned off. He was still unable to lie flat and even though cardiology recommended a heart catheterization that had to keep being pushed back because of the patient's inability to lie flat. After being in the hospital so long, the patient decided he wanted to go home and try to get a heart catheterization outpatient. He qualifies for oxygen, that was arranged prior to discharge. For infectious disease, he was also given Levaquin for five days and back Bactrim DS for 21 days at time of discharge. The patient is discharged home per his request and follow up with primary care in 1 to 2 weeks and Cardiology as discussed. The patient understands discharge instructions and agrees to plan. Dictated by Temi Arshad NP MD KATELIN Pleitez/ANISH /[id number]
== END 2018-12-11 18:05 | disposition home or self-care (01) | DRG 291 ==
LOC: ER 08:41 → ERHOLD 11:40 → IMCU 14:31 → OBSVTOIN 11-30 06:47 → ICU 11-30 11:57 → MED/SURG 12-06 17:37 → MED/SURG3 12-09 15:10
PROVIDERS: ADMIT Internal Medicine; ATTEND Internal Medicine
PROC: 0W9B3ZZ Drainage of Left Pleural Cavity, Percutaneous Approach (ICD-10-PCS; principal; 2018-12-03)
DX: I11.0 Hypertensive heart disease with heart failure (principal); J15.9 Unspecified bacterial pneumonia; T83.511A Infection and inflammatory reaction due to indwelling urethral catheter, initial encounter; J44.0 Chronic obstructive pulmonary disease with (acute) lower respiratory infection; J44.1 Chronic obstructive pulmonary disease with (acute) exacerbation; N30.01 Acute cystitis with hematuria; T83.83XA Hemorrhage due to genitourinary prosthetic devices, implants and grafts, initial encounter; E44.0 Moderate protein-calorie malnutrition; I50.23 Acute on chronic systolic (congestive) heart failure; Z87.442 Personal history of urinary calculi; Z21 Asymptomatic human immunodeficiency virus [HIV] infection status; Z95.810 Presence of automatic (implantable) cardiac defibrillator; Z90.49 Acquired absence of other specified parts of digestive tract; Z95.5 Presence of coronary angioplasty implant and graft; Z87.891 Personal history of nicotine dependence; Z82.49 Family history of ischemic heart disease and other diseases of the circulatory system; R09.02 Hypoxemia; I48.91 Unspecified atrial fibrillation; E78.5 Hyperlipidemia, unspecified; Z80.9 Family history of malignant neoplasm, unspecified; E03.9 Hypothyroidism, unspecified; E87.6 Hypokalemia; Z79.01 Long term (current) use of anticoagulants; I44.7 Left bundle-branch block, unspecified; I25.10 Atherosclerotic heart disease of native coronary artery without angina pectoris; E66.9 Obesity, unspecified; R33.9 Retention of urine, unspecified; N35.919 Unspecified urethral stricture, male, unspecified site; B96.5 Pseudomonas (aeruginosa) (mallei) (pseudomallei) as the cause of diseases classified elsewhere; Z68.28 Body mass index [BMI] 28.0-28.9, adult; N40.1 Benign prostatic hyperplasia with lower urinary tract symptoms; R33.8 Other retention of urine; R53.81 Other malaise; G47.00 Insomnia, unspecified; I48.0 Paroxysmal atrial fibrillation; L89.312 Pressure ulcer of right buttock, stage 2; L89.321 Pressure ulcer of left buttock, stage 1
CPT/HCPCS: 36415; 36569; 51700; 71045; 71046; 74178; 76604; 76705; 80048; 80053; 80076; 81001; 82550; 82553; 83605; 83615; 83735; 83880; 84157; 84439; 84443; 84484; 85025; 85610; 85730; 87040; 87070; 87086; 87186; 87205; 88112; 88305; 88342; 89051; 93005; 93306; 94640; 99284; G0378; J0692; J0696; J1250; J1940; J2001; J2920; J3370; J7050; Q9967

== ENCOUNTER 2018-12-16 13:54 | Emergency (ER) | payer MEDICARE ==
[~2018-12-16] VITALS: Ht 177.8 cm; Wt 90.3 kg
[~2018-12-16 13:54] MED LIST changes: +ASPIRIN81 MG PO; +BACTRIM DS TAB1 EACH PO; +FLOMAX0.4 MG PO; +KLOR-CON M2020 MEQ PO; +LIPITOR10 MG PO; +PLAVIX75 MG PO
--- OUTSIDE RECORDS SUMMARY | 2018-12-16 13:58 | XMS REPORT ---
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 Kranthi Lai MD HERPES [facility] PARAPARESIS ICD-053.9 Inactive Shanta Li OPTIMIZATION SPECIALIST NEPHROLITHIASIS ICD-592.0 Inactive Shanta Li OPTIMIZATION SPECIALIST PSA, INCREASED 790.93 2007 Inactive Shanta Li OPTIMIZATION SPECIALIST Elevated prostate specific antigen [PSA] PSA, INCREASED ICD-790.93 Inactive Shanta WILKERSONP RENAL INSUFFICIENCY 593.9 Resolved Shanta Li OPTIMIZATION SPECIALIST Unspecified disorder of kidney and ureter CHOLELITHIASIS 574.20 Resolved Shanta Araujopard OPTIMIZATION SPECIALIST Calculus of gallbladder without mention of cholecystitis, without mention of obstruction HERPES [facility] PARAPARESIS 053.9 11/2007 Resolved Shanta Araujopard OPTIMIZATION SPECIALIST Herpes zoster without mention of complication NEPHROLITHIASIS 592.0 2008 Resolved Shanta WILKERSONP Calculus of kidney Medication List Medication Instructions Start Date Stop Date Generic Name ND Status Provider Patient Instruction AZITHROMYCIN 500 MG ORAL TABLET 1 tab By Mouth daily AZITHROMYCIN 79426656667 Active Shanta Li OPTIMIZATION SPECIALIST Active CEFUROXIME AXETIL 500 MG ORAL TABLET 1 tab By Mouth Every 12 hours CEFUROXIME AXETIL 65506160331 Active Shanta Li OPTIMIZATION SPECIALIST Active COLACE 100 MG ORAL CAPSULE 1 by mouth twice a day DOCUSATE SODIUM 31082678781 Active Shanta Li OPTIMIZATION SPECIALIST Active IPRATROPIUM-ALBUTEROL 0.5-2.5 (3) MG/3ML INHALATION SOLUTION For use with Nebulizer Every 6 hours x 28 days IPRATROPIUM-ALBUTEROL 98351252336 Active Shanta Li [facility] Active MUCINEX DM 30-600 MG ORAL TABLET EXTENDED RELEASE 12 HOUR 1 tab By Mouth Twice a Day DEXTROMETHORPHAN-GUAIFENESIN 53741311178 Active Shanta Li [facility] Active XARELTO 20 MG ORAL TABLET 1 tab By Mouth Every Day RIVAROXABAN 83649813101 Active Shanta Li [facility] Active ASPIRIN 81 MG ORAL TABLET DELAYED RELEASE 1 by mouth every day ASPIRIN 52153306245 Active Shanta Li [facility] Active CLOPIDOGREL BISULFATE 75 MG ORAL TABLET 1 By Mouth once a day CLOPIDOGREL BISULFATE 84172195460 Active Shanta Li [facility] Active ROPINIROLE HCL 0.25 MG TABLET TAKE TWO TABLETS BY MOUTH AT BEDTIME ROPINIROLE HCL 00339561192 Active Heather Smithhmjackieer MedAdherence, live ammunition inspector Active OMEGA-3 ACID ETHYL ESTERS 1 G CAPSULE TAKE TWO CAPSULES BY MOUTH TWO TIMES A DAY [id number]-[id number] ETHYL ESTERS 86910563687 Active Heather Vyuhmeyer MedAdherence, live ammunition inspector Active ATORVASTATIN CALCIUM 10 MG ORAL TABLET 1 tab By Mouth Every Day ATORVASTATIN CALCIUM 36753868229 Active Shanta Li [facility] Active ENTRESTO 49-51 MG ORAL TABLET 1 tab By Mouth Every Day SACUBITRIL-VALSARTAN 33601351982 Active Shanta Li [facility] Active ALLOPURINOL 300 MG ORAL TABLET 1 by mouth every day ALLOPURINOL 83659785804 Active Shanta Li [facility] Active METOPROLOL SUCCINATE ER 25 MG ORAL TABLET EXTENDED RELEASE 24 HOUR 1 tab by mouth daily METOPROLOL SUCCINATE 09333327484 Active Mary Hurtado R.Ph Active FUROSEMIDE 40 MG ORAL TABLET 1 by mouth every am FUROSEMIDE 58149474735 Active Shanta Li [facility] Active INTELENCE 200 MG ORAL TABLET 1 tab By Mouth Twice a Day ETRAVIRINE 81763651974 Active Shanta Li [facility] Active COMBIVIR 150-300 MG ORAL TABLET take 1/2 tablet By Mouth Every Day LAMIVUDINE-ZIDOVUDINE 65167537764 Active Shanta ROWLEY Active VALACYCLOVIR HCL 500 MG ORAL TABLET 1 By Mouth Every Day VALACYCLOVIR HCL 59156681497 Active Shanta ROWLEY Active INVIRASE 500 MG ORAL TABLET 2 By Mouth Twice a Day SAQUINAVIR MESYLATE 21657204885 Active Shanta ROWLEY Active NORVIR 100 MG ORAL TABLET 1 By Mouth Every Day Ritonavir 70532378006 Active Shanta ROWLEY Active AMIODARONE HCL 200 MG ORAL TABLET 1 tab By Mouth Twice a Day AMIODARONE HCL 200 MG ORAL TABLET 241143 AMIODARONE HCL Inactive LEVAQUIN 750 MG ORAL TABLET 1 tab By Mouth x 3 days LEVAQUIN 750 MG ORAL TABLET 202709 LEVOFLOXACIN Inactive TESSALON PERLES 100 MG ORAL CAPSULE 1 by mouth 3 times a day as needed for cough TESSALON PERLES 100 MG ORAL CAPSULE 075667 BENZONATATE Inactive METOPROLOL SUCCINATE ER 25 MG ORAL TABLET EXTENDED RELEASE 24 HOUR 1 tab by mouth daily METOPROLOL SUCCINATE ER 25 MG ORAL TABLET EXTENDED RELEASE 24 HOUR METOPROLOL SUCCINATE Inactive LIPITOR 10 MG ORAL TABLET 1 by mouth every pm LIPITOR 10 MG ORAL TABLET 759191 ATORVASTATIN CALCIUM Inactive LOPID 600 MG ORAL TABLET 1 tab By Mouth Twice a Day LOPID 600 MG ORAL TABLET 323271 GEMFIBROZIL Inactive LOVAZA 1 GM ORAL CAPSULE 2 tabs By Mouth Twice a Day LOVAZA 1 GM ORAL CAPSULE 489574 [id number]-7-[facility] ETHYL ESTERS Inactive LISINOPRIL 2.5 MG ORAL TABLET 1 By Mouth Every Day LISINOPRIL 2.5 MG ORAL TABLET 493993 LISINOPRIL Inactive NEXIUM 20 MG ORAL CAPSULE DELAYED RELEASE 1 by mouth daily NEXIUM 20 MG ORAL CAPSULE DELAYED RELEASE 086496 ESOMEPRAZOLE MAGNESIUM Inactive EPIVIR 150 MG ORAL TABLET 1 By Mouth Every Day EPIVIR 150 MG ORAL TABLET 548173 LAMIVUDINE Inactive AMIODARONE HCL 200 MG ORAL TABLET 1 tab By Mouth Twice a Day AMIODARONE HCL 83447360574 No Longer Active Shanta WILKERSONP Active LEVAQUIN 750 MG ORAL TABLET 1 tab By Mouth x 3 days LEVOFLOXACIN 18416846440 No Longer Active Shanta WILKERSONP Active TESSALON PERLES 100 MG ORAL CAPSULE 1 by mouth 3 times a day as needed for cough BENZONATATE 80057482408 No Longer Active Shanta WILKERSONP Active METOPROLOL SUCCINATE ER 25 MG ORAL TABLET EXTENDED RELEASE 24 HOUR 1 tab by mouth daily METOPROLOL SUCCINATE 20253081665 No Longer Active Shanta WILKERSONP Active LIPITOR 10 MG ORAL TABLET 1 by mouth every pm ATORVASTATIN CALCIUM 51360899674 No Longer Active Shanta WILKERSONP Active LOPID 600 MG ORAL TABLET 1 tab By Mouth Twice a Day GEMFIBROZIL 96124519464 No Longer Active Shanta WILKERSONP Active LOVAZA 1 GM ORAL CAPSULE 2 tabs By Mouth Twice a Day LRBZC-0-BY[facility] ETHYL ESTERS 08991994080 No Longer Active Marcelle Baig Active TRICOR 145 MG ORAL TABLET 1 By Mouth Every Day FENOFIBRATE 67387511587 No Longer Active Shanta WILKERSONP Active LISINOPRIL 2.5 MG ORAL TABLET 1 By Mouth Every Day LISINOPRIL 08226452369 No Longer Active Shanta WILKERSONP Active NEXIUM 20 MG ORAL CAPSULE DELAYED RELEASE 1 by mouth daily ESOMEPRAZOLE MAGNESIUM 06007369038 No Longer Active Shanta WILKERSONP Active EPIVIR 150 MG ORAL TABLET 1 By Mouth Every Day LAMIVUDINE 16558686504 No Longer Active Shanta WILKERSONP Active Advance Directives Directive Description Start Date POWER OF COAL WASHER Immunizations Vaccine Administration Date Value Standard Description influenza immunization (Flu Vax) has been administered given influenza virus vaccine, unspecified formulation PEDIATRIC PNEUMOCOCCAL VACCINE ([id number]) #1 given pneumococcal conjugate vaccine, 13 valent [...] vaccine #1 transcribed from official record Novel [id number], all formulations influenza immunization (Flu Vax) has [...] % 12.0-35.5 Lab Report: Lipid Panel, Panel 238257, Panel 012254, PSA, Serum (Serial ... - Serology HIV-1 antibody, western blot, serum Positive Lab Report: Comp. Metabolic Panel (14), Urinalysis, Routine, Microscopic ... - Urinalysis yeast identified on urinalysis Present None seen Lab Report: RNA, Real Time PCR (Graph) - Chemistry HIV-1 RNA (log 10) 1.903 uwl69vjzb/mL Lab Report: CD4/CD8 Ratio Profile, Comp. Metabolic [...] Pre-Visit Planning: F/U 02/15/17@10:15AM-confirmed - CC care human resources team member #1, name [facility] GARRET-Ulises Wiseman MD / LIZZETTE Hendricks FNP [...] MD, Kanchan Smith MD, Jen WILKERSONP, Skyler RWOLEY, Forrest CORRIGANC, Kareen Woo MA, Agustina Dunn [...] 10*3/uL 0.1-0.9 Lab Report: Lipid Panel, Panel 725426, Panel 457228, PSA, Serum (Serial ... - Genetics/fertility HIV-1 [...] Real ... - Chemistry absolute CD8 638 092-886 6157/05/17 Absolute Neutrophils 4.1 X10E3/UL 10*3/uL 1.4-7.0 Lab [...] CDT Ofc Vst, Est Level IV [facility] Adult [facility] 08:12:52 SEISMIC SURVEY ASSISTANT Ofc Vst, Est Level IV Shanta WILKERSONP CPT-17188 [facility] Adult Medicine 12:45:11 CDT Ofc Vst, Est Level IV Shanta WILKERSONP CPT-69967 [facility] Adult [facility] 06:29:34 SEISMIC SURVEY ASSISTANT Ofc Vst, Est Level IV Shanta Li [facility] CPT-29515 [facility] 14:27:48 CDT Ofc Vst, Est Level IV Shanta Li [facility]-75013 [facility] Adult [facility] 07:25:20 CDT Ofc Vst, Est Level IV Shanta Li [facility] CPT-06454 [facility] 21:41:56 SEISMIC SURVEY ASSISTANT Ofc Vst, Est Level IV Shanta Li [facility] CPT-99097 [facility] Adult [facility] 12:33:11 CDT Ofc Vst, Est Level IV Shanta Li [facility] CPT-45747 [facility] Adult [facility] 16:26:09 SEISMIC SURVEY ASSISTANT Ofc Vst, Est Level IV Shanta Li [facility] CPT-06127 [facility] Adult [facility] 11:21:29 CDT Ofc Vst, Est Level IV Shanta Li [facility] CPT-16881 [facility] Adult Medicine 11:43:59 CDT Ofc Vst, Est Level III Shanta Li [facility] CPT-82281 [facility] Adult [facility] 11:01:12 CDT Ofc Vst, Est Level IV Shanta Li [facility] CPT-76376 [facility] Adult [facility] 17:01:43 SEISMIC SURVEY ASSISTANT Ofc Vst, Est Level IV Shanta Li [facility] CPT-75716 [facility] Adult [facility] 18:16:42 CDT Ofc Vst, Est Level IV Shanta Li [facility] CPT-75449 [facility] Adult Medicine 10:50:18 CDT Ofc Vst, Est Level IV Shanta Li OPTIMIZATION SPECIALIST CPT-34515 [facility] Adult Medicine 12:09:48 CDT Ofc Vst, Est Level IV Shanta Li OPTIMIZATION SPECIALIST CPT-99746 [facility] Adult Medicine 12:52:09 CDT Ofc Vst, Est Level IV Shanta Li OPTIMIZATION SPECIALIST CPT-70869 [facility] Adult Medicine 18:18:31 SEISMIC SURVEY ASSISTANT Ofc Vst, Est Level IV Shanta Li OPTIMIZATION SPECIALIST CPT-01279 [facility] Adult Medicine Procedures Code Procedure Name Date Entry Date Standard Description CPT-87844 Xray - Chest - 2 Views - InHouse 12:27:58 CDT CPT-33757 TDAP 11:01:15 CDT CPT-34441 Prevnar (PCV13) IM 11:01:15 CDT CPT-74244 Xray - Chest - PA & Lat - InHouse 11:58:06 SEISMIC SURVEY ASSISTANT CPT-65504 Nutrition Re-assessment Ind (15 Min) - 83065 10:54:17 SEISMIC SURVEY ASSISTANT CPT-30043 Dispensing Visit (UNLIVSTED OPHTHALMOLOGICAL SERVICE/PROCEDURE) 10:32:51 CDT CPT-04931 Est Patient Intermediate Opth - 53038 11:22:46 CDT CPT-47680 Est Patient Intermediate Opth - 66578 10:44:20 CDT CPT-85962 Nutrition Re-assessment Ind (15 Min) - 86374 13:43:33 CDT CPT-82933 Pneumovax Vaccine 10:50:18 CDT CPT-47783 Nutrition Re-assessment Ind (15 Min) - 51924 11:08:49 SEISMIC SURVEY ASSISTANT CPT-37848 Nutrition Initial Assessment Ind (15 Min) - 51816 17:57:40 SEISMIC SURVEY ASSISTANT [facility]-10050 Venipuncture 18:18:31 SEISMIC SURVEY ASSISTANT
[2018-12-16] MEDS ORDERED: ALBUTEROL/IPRATROPIUM 3 ML NEB ONE (14:22)
[2018-12-16 14:44] LABS: BILIRUBIN,URINE NEGATIVE (NEGATIVE); CLARITY,URINE CLEAR (CLEAR); COLOR,URINE YELLOW (YELLOW); KETONES,URINE NEGATIVE (NEGATIVE); LEUKOCYTE ESTERASE ,URINE NEGATIVE (NEGATIVE); NITRITE,URINE NEGATIVE (NEGATIVE); PROTEIN,URINE DIPSTICK NEGATIVE (NEGATIVE); URINE UROBILINOGEN 0.2 mg/dL (0.2 - 1)
[2018-12-16 14:44] LABS: BASOPHILS % 0.1 % (0.0-1.0); EOSINOPHILS # (AUTO) 0.1 (0.0-0.4); EOSINOPHILS % 0.6 % (0.0-6.0); HEMATOCRIT 33.3 % (38.2-49.6); HEMOGLOBIN 11.6 g/dL (14.0-18.0); LYMPHOCYTES # (AUTO) 0.6 (1.0-3.2); LYMPHOCYTES % 7.8 % (18.0-39.1); MEAN CORPUSCULAR HEMOGLOBIN 36.8 pg (28-32); MEAN CORPUSCULAR HGB CONC 34.8 g/dL (31-35); MEAN CORPUSCULAR VOLUME 105.7 fL (81-99); MONOCYTES # (AUTO) 0.5 (0.2-0.8); MONOCYTES % 6.3 % (4.4-11.3); NEUTROPHILS # (AUTO) 6.7 (2.1-6.9); NEUTROPHILS % 84.8 % (38.7-80.0); PLATELET COUNT 272 x10e3/uL (140-360); RED BLOOD COUNT 3.15 x10e6/uL (4.3-5.7); RED CELL DISTRIBUTION WIDTH 12.3 % (11.7-14.4)
--- NOTE | 2018-12-16 14:54 | Diagnostic Imaging Report ---
EXAMINATION: CHEST SINGLE (PORTABLE) INDICATION: Shortness of breath COMPARISON: Multiple prior chest radiograph, most recently of 12/09/2018 FINDINGS: TUBES and LINES: Left AICD with leads in unchanged position. EKG leads overlie the chest. LUNGS: The lung volumes are low. There is perihilar fullness and indistinctness of the pulmonary vasculature. There is left basilar opacity silhouetting the left tya diaphragm. PLEURA: Likely small bilateral pleural effusions. No pneumothorax. HEART AND MEDIASTINUM: Cardiomediastinal silhouette is stably enlarged. BONES AND SOFT TISSUES: No acute fracture or dislocation. UPPER ABDOMEN: No free air under the diaphragm. IMPRESSION: Pulmonary edema and likely small bilateral pleural effusions, somewhat increased compared to prior study of 12/09/2018. Signed by: Deepa Cooper MD on 12/16/2018 2:50 PM
[2018-12-16 14:59] LABS: AMORPHOUS SEDIMENT,URINE MODERATE (FEW); BACTERIA,URINE FEW /HPF; EPITHELIAL CELLS,URINE FEW /LPF
[2018-12-16] MEDS ORDERED: FUROSEMIDE INJ 10 MG/ML 4 ML VIAL IV ONE (15:00)
[2018-12-16 15:02] LABS: ALANINE AMINOTRANSFERASE 16 IU/L (0-55); ALBUMIN 2.4 g/dL (3.5-5.0); ALBUMIN/GLOBULIN RATIO 0.6 (0.8-2.0); ALKALINE PHOSPHATASE 55 IU/L (40-150); ANION GAP 14.4 mmol/L (8-16); BLOOD UREA NITROGEN 24 mg/dL (7-26); BUN/CREATININE RATIO 27 (6-25); CALCIUM 9.6 mg/dL (8.4-10.2); CARBON DIOXIDE 29 mmol/L (22-29); CHLORIDE 91 mmol/L (98-107); CREATINE KINASE 85 IU/L (30-200); EST GLOMERULAR FILTRATION RATE > 60 ML/MIN (60-); GLUCOSE 95 mg/dL (74-118); INR 1.51; POTASSIUM 4.4 mmol/L (3.5-5.1); PROTHROMBIN TIME 18.8 seconds (11.9-14.5); SODIUM 130 mmol/L (136-145)
[2018-12-16 15:04] LABS: PARTIAL THROMBOPLASTIN TIME 51.3 seconds (23.8-35.5)
--- NOTE | 2018-12-16 16:30 | NUR ---
Spoke to Dr. Doll and TONY Shin regarding pt. Dr. Doll states that there's no criteria to admit pt to hospital. She has spoken with Dr. Felipe. Plans to discharge pt home. Wrote order for home health. CM spoke to pt and Monique Gore at bedside. Discussed plans to discharge with them. Pt's stated that pt was sent over from Dr. Felipe's office and state that the office felt pt needs to be admitted. CM informed her that Dr. Doll has spoken to Dr. Feilpe already. Pt's states that as long as here has spoken to Dr. Felipe then they would be ok with discharging home. CM inquired about home health. Mrs. Gore states that Dr. Felipe's office was in the process of setting up home health with [facility]. She would like to proceed with that company since she also uses them. Choice letter signed for [facility]. Pt's also signed choice for [facility] in case [facility] unable to admit. Choice letter was placed with pt's record in ED to be scanned into system. Copy of choice letter was given to pt's . Pt's inquired about wound supplies, since the only recommended was too expensive for them. CM also reminded pt and his about resources from [facility]. Pt's states they have a very good relationship with pt's doctor there and will follow up with her for wound supplies. Also gave pt's Senior Resource Guide for reference for any services needed. Dr. Doll to speak with pt and family prior to discharge. JUAN called [facility] intake and verified they are currently taking pt's insurance. Informed them of referral. Also informed Dileep, liaison with [facility].
--- NOTE | 2018-12-16 16:54 | NUR ---
ems called for transport home
--- NOTE | 2018-12-16 17:56 | NUR ---
RECALLED EMS FOR PT TO HOME PER MD. CALL WAS ON HOLD TO [facility] FOR USP PLACEMENT. PT IS TO GO HOME AND HOME HEALTH IS COMING TOMORROW FOR EVAL. JIMENEZ FROM [facility] TO THEIR HOME.
--- NOTE | 2018-12-16 18:01 | NUR ---
SACRAL WOUND CLEAN NEW DRSG XEROFORM, ABD WITH FOAM TAPE.
--- NOTE | 2018-12-16 19:48 | NUR ---
SPOKE WITH DR GIMENEZ, STATES PTS REFUSED TO HAVE PTS DON CATHETER REMOVED, I SPOKE WITH SHE STATES SHE " DOES NOT WANT DON OUT". TOLD WE WOULD DOCUMENT THAT SHE REFUSED AND SHE STATED "THATS OK, [facility] BEEN TAKING CARE OF CATHETERS SINCE 2007"
[2018-12-16 19:51] VITALS: BP 101/59
== END 2018-12-16 19:53 | disposition home or self-care (01) ==
LOC: ER 13:54
DX: R06.00 Dyspnea, unspecified (principal); I50.9 Heart failure, unspecified; I10 Essential (primary) hypertension; J44.9 Chronic obstructive pulmonary disease, unspecified; M10.9 Gout, unspecified; Z99.81 Dependence on supplemental oxygen; Z95.810 Presence of automatic (implantable) cardiac defibrillator
CPT/HCPCS: 36415; 51700; 71045; 80053; 81001; 82550; 82553; 83605; 83880; 84484; 85025; 85610; 85730; 87040; 87086; 93005; 94640; 99284; J1940

== ENCOUNTER 2018-12-18 12:40 | Inpatient (IN) | payer MEDICARE ==
[~2018-12-18] VITALS: Ht 177.8 cm; Wt 92.5 kg
[2018-12-18 13:50] VITALS: BP 89/50
--- NOTE | 2018-12-18 13:50 | NUR ---
Received patient as a direct admit from Dr. Alexis Flower's office, patient admitted to Dr. Suzie Sinha, and Dr. Flower as consulting business operations director. Patient arrived in wheel chair, alert and oriented x3, verbalizing needs, able to transfer from wheel chair to bed and to bed to wheel chair requested to go to bathroom patient was assisted via wheel chair to bathroom. Patient had a bowel movement. Matta to gravity, draining yellow urine. Has edema to bilateral lower extremities +4. Skin to buttocks is stage 2 pressure ulcer. Applied barrier cream and Allevyn dressing. Belongings and call light within reach, instructed to use call light when needing assistance.
[2018-12-18 14:00] VITALS: BP 71/42
[2018-12-18] MEDS ORDERED: NON-FORMULARY MEDICATION ([Albuterol/Ipratropium Nebulize] 3 ML) NEB PRN (14:15)
[2018-12-18 14:40] VITALS: BP 92/60
[2018-12-18] MEDS: MEROPENEM 1GM 100 ML IV SCH ×2 (15:38→21:19)
[2018-12-18] MEDS ORDERED: SODIUM CHLORIDE 0.9% 250ML 250 ML ONE (15:40)
[2018-12-18 15:57] LABS: BASOPHILS % 0.1 % (0.0-1.0); EOSINOPHILS # (AUTO) 0.1 (0.0-0.4); EOSINOPHILS % 1.1 % (0.0-6.0); HEMATOCRIT 29.8 % (38.2-49.6); HEMOGLOBIN 10.5 g/dL (14.0-18.0); LYMPHOCYTES # (AUTO) 0.6 (1.0-3.2); LYMPHOCYTES % 8.8 % (18.0-39.1); MEAN CORPUSCULAR HEMOGLOBIN 37.5 pg (28-32); MEAN CORPUSCULAR HGB CONC 35.2 g/dL (31-35); MEAN CORPUSCULAR VOLUME 106.4 fL (81-99); MONOCYTES # (AUTO) 0.5 (0.2-0.8); MONOCYTES % 6.5 % (4.4-11.3); NEUTROPHILS % 83.1 % (38.7-80.0); PLATELET COUNT 271 x10e3/uL (140-360); RED CELL DISTRIBUTION WIDTH 12.4 % (11.7-14.4)
--- NOTE | 2018-12-18 16:00 | NUR ---
Patient had left thoracentesis 1 liter of red brick fluid, sent to lab for cytology, tolerated well the procedure at bedside.
--- NOTE | 2018-12-18 16:55 | Diagnostic Imaging Report ---
PROCEDURE: Ultrasound-guided thoracentesis Procedural Personnel Attending physician(s): Deepa Cooper MD Fellow physician(s): None Resident physician(s): None Advanced practice provider(s): None Pre-procedure diagnosis: Left pleural effusion Post-procedure diagnosis: Same Indication: Left pleural effusion, shortness of breath Additional clinical history: None Complications: No immediate complications. IMPRESSION: Ultrasound-guided thoracentesis with drainage of 1200 mL of serous fluid. Plan: Postprocedural chest radiograph Resume care by clinical team. PROCEDURE SUMMARY: - Limited thoracic ultrasound - Ultrasound-guided thoracentesis - Additional procedure(s): None PROCEDURE DETAILS: Pre-procedure Consent: Informed consent for the procedure including risks, benefits and alternatives was obtained and time-out was performed prior to the procedure. Preparation: The site was prepared and draped using maximal sterile barrier technique including cutaneous antisepsis. Anesthesia/sedation Level of anesthesia/sedation: No sedation Anesthesia/sedation administered by: Not applicable Total intra-service sedation time (minutes): N/A Limited thoracic ultrasound Limited thoracic ultrasound was performed using a curved transducer. A safe window for thoracentesis was identified. Left hemithorax findings: Moderate to large pleural effusion Thoracentesis Local anesthesia was administered. The pleural space was accessed under real-time ultrasound guidance and fluid return confirmed position. The fluid was drained. The catheter was removed, and a sterile bandage was applied. Catheter placed: 5F Akuaeh Post-drainage hemithorax findings: Not performed Additional Details Additional description of procedure: None Equipment details: None Specimens removed: Pleural fluid Estimated blood loss (mL): Less than 10 Standardized report: [email or web address] Attestation Signer name: Deepa Cooper MD I attest that I was present for the entire procedure. I reviewed the stored images and agree with the report as written. Signed by: Deepa Cooper MD on 12/18/2018 4:51 PM
[2018-12-18] MEDS: DOCUSATE SODIUM 100 MG CAP PO SCH (17:00)
[2018-12-18] MEDS: AZITHROMYCIN 500MG/NS 250 ML 250 ML IV SCH (17:06)
[2018-12-18 17:17] VITALS: BP 112/58
--- NOTE | 2018-12-18 17:21 | Diagnostic Imaging Report ---
EXAMINATION: CHEST XRAY POST PROCEDURE INDICATION: Status post thoracentesis. COMPARISON: Chest radiograph of 12/16/2018 FINDINGS: TUBES and LINES: Left chest pacer device with leads in unchanged position. LUNGS: The lungs are moderately inflated. There is perihilar fullness and indistinctness of the pulmonary vasculature. There is left basilar opacity silhouetting the left tay diaphragm. PLEURA: Moderate left pleural effusion. No pneumothorax. HEART AND MEDIASTINUM: Cardiomediastinal silhouette is stably enlarged. BONES AND SOFT TISSUES: No acute fracture or dislocation. UPPER ABDOMEN: No free air under the diaphragm. IMPRESSION: No pneumothorax status post left thoracentesis. Unchanged pulmonary edema. Residual moderate left pleural effusion. Signed by: Deepa Cooper MD on 12/18/2018 5:17 PM
[2018-12-18 17:38] LABS: BODY FLUID TYPE PLEURAL
[2018-12-18 17:39] LABS: BODY FLUID APPEARANCE CLOUDY; BODY FLUID COLOR RED
[2018-12-18 17:44] VITALS: BP 112/58
[2018-12-18 18:43] LABS: RBC,BODY FLUID 12825 cells/uL; WBC,BODY FLUID 114 cells/uL
[2018-12-18 18:51] LABS: EOSINOPHILS,BODY FLUID 1 %; LYMPHOCYTES,BODY FLUID 12 %; MONO/MACROPHG,BODY FLUID 4 %; NEUTROPHILS,BODY FLUID 25 %; OTHER CELLS,BODY FLUID 58 %
[2018-12-18] MEDS: ALBUTEROL/IPRATROPIUM 3 ML NEB INH PRN (19:20)
[2018-12-18] MEDS: [UNRECOGNIZED DRUG - OTHER] PO SCH (19:21)
[2018-12-18] MEDS: ETRAVIRINE 200 MG PO SCH (19:21)
[2018-12-18] MEDS ORDERED: FUROSEMIDE INJ 10 MG/ML 4 ML VIAL IV SCH (21:00)
[2018-12-18] MEDS: ATORVASTATIN 10 MG TAB PO SCH (21:18)
[2018-12-18] MEDS: ROPINIROLE HCL 0.25 MG TAB PO SCH (21:18)
[2018-12-18] MEDS: FUROSEMIDE INJ 10 MG/ML 4 ML VIAL IV SCH (21:18)
[2018-12-18 21:19] VITALS: BP 96/52
--- NOTE | 2018-12-18 22:12 | NUR ---
Dr Sinha called gave order for consult patient to Dr Romulo Matthew; per dr bronwyn Matthew is aware.
[2018-12-19] VITALS (11 sets, daily range): BP systolic 87–124; BP diastolic 48–96
--- NOTE | 2018-12-19 01:32 | Consultation ---
DATE OF CONSULTATION: 12/18/2018 Cardiology Consultation REQUESTING PHYSICIAN: Dr. Flower. REASON FOR CONSULTATION: Heart failure. HISTORY OF PRESENT ILLNESS: This is a 73-year-old man with history of chronic systolic heart failure with LVEF of less than 20%; coronary artery disease, status post PCI of the LAD in May 2018, status post BiV ICD placement; atrial fibrillation/flutter, status post cardioversion in November 2018; HIV on antiviral therapy; hypertension; and hyperlipidemia, who presents with shortness of breath. The patient was recently discharged from the hospital earlier this month after being admitted for acute on chronic systolic heart failure. He indicates that he developed lower extremity edema and symptoms suggestive of orthopnea and paroxysmal nocturnal dyspnea a few days prior. The patient saw his quality systems specialist, Dr. Flower and was subsequently admitted to [facility] for further care. The patient underwent ultrasound-guided thoracentesis this afternoon with drainage of 1200 mL of fluid. Postprocedure chest x-ray reveals moderate left pleural effusion and pulmonary edema. The patient, however, denies chest pain, lightheadedness, or palpitations. Cardiology was consulted for management of his systolic heart failure. REVIEW OF SYSTEMS: Negative as per HPI. PAST MEDICAL HISTORY: As reported above. PAST SURGICAL HISTORY: Cholecystectomy. ALLERGIES: PLEASE SEE EMR. MEDICATIONS: Please see medication list. SOCIAL HISTORY: Prior tobacco. No alcohol. FAMILY HISTORY: Noncontributory to current illness. PHYSICAL EXAMINATION: VITAL SIGNS: Temperature 98.6 degrees, pulse 79, respiratory rate 22, blood pressure 112/58, and oxygen saturation 92% on 3.5 L nasal cannula. GENERAL: Well-developed and well-nourished man, in no acute distress. HEENT: Normocephalic and atraumatic. Pupils are equal. No scleral icterus. NECK: Supple. No thyromegaly or cervical lymphadenopathy. No carotid bruits. LUNGS: Decreased breath sounds at the left base. Crackles at the bases, otherwise clear to auscultation. CARDIOVASCULAR: Normal rate. Regular rhythm. No murmur. Normal S1 and S2. ABDOMEN: Soft and nontender. EXTREMITIES: 1+ pitting edema. NEUROLOGIC: Nonfocal exam. LABORATORY DATA: WBC 7.18, hemoglobin 10.5, hematocrit 29.8, and platelets 271. Sodium 130, potassium 4.4, chloride 91, CO2 of 29, BUN 24, and creatinine 0.9. BNP 112. Telemetry, V-paced. IMPRESSION: 1. Lxwyw-ol-oicyoza systolic heart failure. 2. Status post BiV ICD. 3. Coronary artery disease, status post LAD, PCI in May 2018. 4. Atrial fibrillation/flutter, status post cardioversion in November 2018. 5. Hypertension. 6. Hyperlipidemia. 7. HIV, on antiviral therapy. RECOMMENDATIONS: Continue IV diuresis, strict I's and O's and daily weights. Continue home cardiac medications including dual anti-platelet therapy. Recommend holding Entresto given hypotension. Resume once blood pressure improves. Continue Xarelto for CVA prophylaxis. Monitor for signs and symptoms of bleeding. Monitor the patient closely on telemetry. Thank you for this consult. We will continue to follow. Sveta Hilliard MD ABS/JUSTINL /[id number] MTDD
[2018-12-19 05:40] LABS: BASOPHILS % 0.1 % (0.0-1.0); EOSINOPHILS # (AUTO) 0.1 (0.0-0.4); EOSINOPHILS % 1.2 % (0.0-6.0); HEMATOCRIT 29.4 % (38.2-49.6); HEMOGLOBIN 10.1 g/dL (14.0-18.0); LYMPHOCYTES # (AUTO) 0.7 (1.0-3.2); LYMPHOCYTES % 9.3 % (18.0-39.1); MEAN CORPUSCULAR HEMOGLOBIN 36.7 pg (28-32); MEAN CORPUSCULAR HGB CONC 34.4 g/dL (31-35); MEAN CORPUSCULAR VOLUME 106.9 fL (81-99); MONOCYTES # (AUTO) 0.6 (0.2-0.8); MONOCYTES % 7.6 % (4.4-11.3); NEUTROPHILS # (AUTO) 5.8 (2.1-6.9); PLATELET COUNT 257 x10e3/uL (140-360); RED BLOOD COUNT 2.75 x10e6/uL (4.3-5.7); RED CELL DISTRIBUTION WIDTH 12.5 % (11.7-14.4)
[2018-12-19] MEDS: MEROPENEM 1GM 100 ML IV SCH (05:57)
[2018-12-19 05:58] LABS: ALBUMIN 2.1 g/dL (3.5-5.0); ALBUMIN/GLOBULIN RATIO 0.6 (0.8-2.0); ANION GAP 10.9 mmol/L (8-16); CALCIUM 8.8 mg/dL (8.4-10.2); CREATININE, SERUM 1.27 mg/dL (0.72-1.25); POTASSIUM 3.9 mmol/L (3.5-5.1)
[2018-12-19] MEDS: LEVOTHYROXINE SODIUM 50 MCG TAB PO SCH (05:58)
[2018-12-19] MEDS: ETRAVIRINE 200 MG PO SCH ×2 (08:52→17:42)
[2018-12-19] MEDS: [UNRECOGNIZED DRUG - OTHER] PO SCH ×2 (08:52→17:42)
[2018-12-19] MEDS: RITONAVIR 100 MG PO SCH (08:53)
[2018-12-19] MEDS: ZIDOVUDINE PO SCH (08:53)
[2018-12-19] MEDS: LAMIVUDINE PO SCH (08:53)
[2018-12-19] MEDS: DOCUSATE SODIUM 100 MG CAP PO SCH ×3 (08:56→17:00)
[2018-12-19] MEDS: TAMSULOSIN HCL 0.4 MG CAP PO SCH (08:56)
[2018-12-19] MEDS: FUROSEMIDE INJ 10 MG/ML 4 ML VIAL IV SCH ×2 (08:56→21:00)
[2018-12-19] MEDS: MULTIVITAMINS/MINERALS TAB PO SCH (08:57)
[2018-12-19] MEDS: ALLOPURINOL 300 MG TAB PO SCH (08:57)
[2018-12-19] MEDS: AMIODARONE HCL 200 MG TAB PO SCH (08:57)
[2018-12-19] MEDS ORDERED: MULTI VITAMIN PO SCH (09:00)
[2018-12-19] MEDS ORDERED: RITONAVIR 100 MG CAP PO SCH (09:00)
[2018-12-19] MEDS: FAMOTIDINE 20 MG TAB PO SCH ×3 (09:01→19:19)
[2018-12-19] MEDS: METOPROLOL SUCCINATE 25 MG TAB XL PO SCH (09:25)
--- NOTE | 2018-12-19 11:55 | Consultation ---
DATE OF CONSULTATION: 12/19/2018 Pulmonary Critical Care Consultation CHIEF COMPLAINT: Dyspnea. HISTORY OF PRESENT ILLNESS: The patient is a 73-year-old man. He has a history of chronic systolic cardiomyopathy. He had a prior PTCA in May 2018. He had a prior biventricular pacemaker and ICD placed. He recently required hospitalization. He was admitted two weeks ago at [facility] with systolic congestive heart failure. He required Lasix drip as well as dobutamine. He also had a left pleural effusion at that time that required thoracentesis. The patient was discharged home about 10 days ago. He noted gradually worsening dyspnea and orthopnea. He complained of cough and hemoptysis. He also complained of some chills at night. Outpatient x-ray showed a worsening left pleural effusion. He was subsequently sent to the hospital. He underwent an ultrasound-guided thoracentesis with removal of 1200 mL, it was serosanguineous and borderline exudate transudate. PAST SURGICAL HISTORY: 1. Status post cholecystectomy. 2. Status post PTCA of the left anterior descending artery. 3. Status post biventricular AICD placement. PAST MEDICAL HISTORY: 1. HIV that has been well controlled for 25 years. He is currently on antiretroviral therapy. 2. Atrial fibrillation requiring cardioversion last month. 3. Hypertension. 4. Systolic cardiomyopathy. ALLERGIES: NO KNOWN DRUG ALLERGIES. SOCIAL HISTORY: The patient is not an active smoker. He is not an active drinker. FAMILY HISTORY: Family history is noncontributory. REVIEW OF SYSTEMS: The patient did note some chills. He denies any headache. He has no neck pain or sore throat. He is not complaining of any chest pain. He does note dyspnea and cough. He has some hemoptysis as well as some phlegm production. He has no abdominal pain. There is no nausea or vomiting. He had 2 to 3+ leg edema in the office. He has no focal neurological complaints. PHYSICAL EXAMINATION: VITAL SIGNS: The patient is afebrile. The blood pressure is 124/96 and the saturation is 99% on 3 L. Pulse is 78. HEENT: Shows no facial swelling or erythema. CARDIAC: Reveals a regular rate and rhythm with a normal S1 and S2. LUNGS: Auscultation of lungs reveals decreased breath sounds on the left side. There are crackles at the bases. ABDOMEN: Soft and nontender. There is no rebound or guarding. EXTREMITIES: Show 1 to 2+ leg edema. NEUROLOGICAL: Shows no focal abnormalities. IMPRESSION: 1. Acute on chronic systolic congestive heart failure. 2. Pneumonia. 3. Left pleural effusion that is borderline exudate/transudate. 4. Atrial fibrillation. 5. Human immunodeficiency virus that is well controlled on antiretroviral therapy. 6. Anemia, unspecified. PLAN: 1. The patient has been started on IV antibiotics. 2. We are awaiting culture results from pleural fluid as well as blood and sputum. 3. The patient is on IV Lasix twice daily. 4. Continue current therapy for atrial fibrillation and cardiomyopathy. 5. Wean oxygen. 6. Out of bed as tolerated. Erickson Flower MD [facility]/MODL /[id number]
--- NOTE | 2018-12-19 13:01 | Progress Note ---
DATE: 12/19/2018 Cardiology Progress Note. SUBJECTIVE: The patient denies chest pain. He reports no shortness of breath and cough. OBJECTIVE: VITAL SIGNS: Temperature 98.7 degrees, pulse 91, respiratory rate 22, blood pressure 103/80, oxygen saturation 100% on 3.5 L nasal cannula. GENERAL: Awake, alert, in no acute distress. LUNGS: Clear to auscultation bilaterally other than decreased breath sounds at the left base. CARDIOVASCULAR: Normal rate. Regular rhythm. No murmur. Normal S1, S2. ABDOMEN: Soft, nontender. EXTREMITIES: 1+ pitting edema. CARDIAC MEDICATIONS: Metoprolol succinate 25 mg p.o. daily, amiodarone 200 mg p.o. daily, furosemide 80 mg IV q.12 hours, levothyroxine 50 mcg p.o. daily, atorvastatin 10 mg p.o. at bedtime. LABORATORY DATA: WBC 7.21, hemoglobin 10.1, hematocrit 29.4, platelets 257. Sodium 132, potassium 3.9, chloride 94, CO2 of 32, BUN 31, creatinine 1.27. Telemetry, ventricular paced rhythm. IMPRESSION: 1. Acute on chronic systolic heart failure, status post BiV ICD. 2. Pleural effusions. 3. Coronary artery disease, status post LAD PCI in May 2018. 4. Atrial fibrillation/flutter, status post cardioversion in November of 2018. 5. Hypertension. 6. Hyperlipidemia. 7. HIV, on antiviral therapy. RECOMMENDATIONS: Continue IV diuresis. Monitor creatinine closely. Strict I's and O's and daily weights. Replete electrolytes. Continue current cardiac medications including dual anti-platelet therapy. Currently Entresto was held due to hypotension. Resume once blood pressure improves. Continue Xarelto for CVA prophylaxis. Monitor for signs and symptoms of bleeding. Monitor the patient closely on telemetry. Defer decision regarding repeat thoracentesis to pulmonary. Thank you for this consult. We will continue to follow. Sveta Hilliard MD [facility]/MODL /[id number]
--- NOTE | 2018-12-19 14:48 | NUR ---
WOUND CARE CONSULTATION: THIS IS A 73 YEAR OLD MALE PATIENT ADMITTED TO [facility] FOR CHF AND PNEUMONIA. PATIENT'S IS AT BEDSIDE DURING ASSESSMENT. HEAD TO TOE SKIN ASSESSMENT PERFORMED. PATIENT HAS A STAGE 2 PRESSURE ULCER TO THE SACRUM MEASURING 13X9.5X0.2CM, NONBLANCHABLE AND 100% PINK GRANULATION NOTED TO OPEN AREAS. PATIENT IS SITTING IN TRIPOD POSITION AND OFTEN SITS IN HIS RECLINER AT HOME FOR LONG PERIODS OF TIME DUE TO SHORTNESS OF BREATH. PATIENT HAS A ROHO CUSHION AT HOME AND STATES THAT THE SACRAL PRESSURE ULCER HAS BEEN THERE FOR APPROXIMATELY 2 MONTHS. PATIENT HAS BEEN APPLYING VENELEX TO THE ULCER DAILY AT HOME AND LEAVING OPEN TO AIR. ENCOURAGED PATIENT TO REPOSITION TO LEFT AND RIGHT EVEN IF HAVING TO SIT UP TO ASSIST WITH SHORTNESS OF BREATH TO HELP PRESSURE OFFLOAD THE SACRAL AREA. PATIENT VERBALIZED UNDERSTANDING. LABS: WBC7.21 ALB2.1 [id number] TOTAL PROTEIN 5.6 BLOOD CULTURE = PENDING MEDICATIONS: AZITHROMYCIN CEFTRIAXONE RECOMMENDATION: -APPLY ALTERNATING PRESSURE RELIEF MATTRESS. -APPLY BILATERAL HEEL PROTECTORS WITH PILLOW SUSPENSION. -TURN PATIENT EVERY 2 HOURS AND PRN. -NURSING TO CLEAN STAGE 2 SACRAL PRESSURE ULCER WITH NORMAL SALINE, PAT DRY, APPLY VENELEX THEN COVER WITH ALLEVYN FOAM DRESSING DAILY AND PRN. THANK YOU FOR THIS WOUND CARE CONSULT. Addendum: 12/19/18 at 1502 by Danyell Rick RN Amended: Links added.
[2018-12-19] MEDS: AZITHROMYCIN 500MG/NS 250 ML 250 ML IV SCH (15:11)
[2018-12-19] MEDS: CEFTRIAXONE SOD 1 GM/NS 50 ML 50 ML IV SCH (17:42)
--- NOTE | 2018-12-19 19:50 | NUR ---
Received report from IMCU nurse.
[2018-12-19] MEDS: ROPINIROLE HCL 0.25 MG TAB PO SCH (21:00)
[2018-12-19] MEDS: ATORVASTATIN 10 MG TAB PO SCH (21:00)
--- NOTE | 2018-12-19 21:00 | NUR ---
Patient arrived on the floor via w/c.
[2018-12-20] VITALS (8 sets, daily range): BP systolic 98–118; BP diastolic 54–62
--- NOTE | 2018-12-20 01:00 | NUR ---
Patient up ambulating to bathroom with assess with some weakness noted. Denies pain. AAOx3. No c/o at this time. Continue monitor.
[2018-12-20] MEDS: LEVOTHYROXINE SODIUM 50 MCG TAB PO SCH (06:00)
--- NOTE | 2018-12-20 06:45 | NUR ---
Patient resting quily with no c/o at this time. Continue monitor.
[2018-12-20 07:11] LABS: ALANINE AMINOTRANSFERASE 16 IU/L (0-55); ALBUMIN 2.1 g/dL (3.5-5.0); ALBUMIN/GLOBULIN RATIO 0.6 (0.8-2.0); ALKALINE PHOSPHATASE 51 IU/L (40-150); ANION GAP 10.8 mmol/L (8-16); BASOPHILS % 0.3 % (0.0-1.0); BLOOD UREA NITROGEN 29 mg/dL (7-26); BUN/CREATININE RATIO 26 (6-25); CALCIUM 8.6 mg/dL (8.4-10.2); CARBON DIOXIDE 33 mmol/L (22-29); CHLORIDE 95 mmol/L (98-107); CREATININE, SERUM 1.12 mg/dL (0.72-1.25); EOSINOPHILS # (AUTO) 0.2 (0.0-0.4); EOSINOPHILS % 2.2 % (0.0-6.0); EST GLOMERULAR FILTRATION RATE > 60 ML/MIN (60-); GLUCOSE 91 mg/dL (74-118); HEMATOCRIT 29.1 % (38.2-49.6); HEMOGLOBIN 9.8 g/dL (14.0-18.0); LYMPHOCYTES # (AUTO) 0.9 (1.0-3.2); LYMPHOCYTES % 13.5 % (18.0-39.1); MEAN CORPUSCULAR HEMOGLOBIN 36.7 pg (28-32); MEAN CORPUSCULAR HGB CONC 33.7 g/dL (31-35); MONOCYTES # (AUTO) 0.4 (0.2-0.8); MONOCYTES % 6.2 % (4.4-11.3); NEUTROPHILS # (AUTO) 5.2 (2.1-6.9); NEUTROPHILS % 77.5 % (38.7-80.0); PLATELET COUNT 266 x10e3/uL (140-360); POTASSIUM 3.8 mmol/L (3.5-5.1); RED BLOOD COUNT 2.67 x10e6/uL (4.3-5.7); SODIUM 135 mmol/L (136-145)
--- NOTE | 2018-12-20 07:18 | NUR ---
PATIENT IN BED WITH HEAD OF BED ELEVATED, NO DISTRESS NOTED. O2 IN PLACE VIA N/C. DON CATHETER WITH CLEAR YELLOW URINE, TELEMETRY BOX 14, DRESSING DRY AND INTACT TO SACRUM. BED IN LOWER POSITION AND LOCKED, CALL LIGHT AT REACH.
[2018-12-20] MEDS: FAMOTIDINE 20 MG TAB PO SCH ×2 (08:00→16:30)
[2018-12-20] MEDS: [UNRECOGNIZED DRUG - OTHER] PO SCH ×2 (09:00→17:00)
[2018-12-20] MEDS: LAMIVUDINE PO SCH (09:00)
[2018-12-20] MEDS: RITONAVIR 100 MG PO SCH (09:00)
[2018-12-20] MEDS: ZIDOVUDINE PO SCH (09:00)
[2018-12-20] MEDS: METOPROLOL SUCCINATE 25 MG TAB XL PO SCH (09:00)
[2018-12-20] MEDS: ETRAVIRINE 200 MG PO SCH ×2 (09:00→17:00)
[2018-12-20] MEDS: DOCUSATE SODIUM 100 MG CAP PO SCH ×2 (09:00→17:00)
[2018-12-20] MEDS: MULTIVITAMINS/MINERALS TAB PO SCH (09:05)
[2018-12-20] MEDS: METHYLPREDNISOLONE SOD SUCC 40 MG/ML VIAL 1ML IV SCH ×2 (09:05→20:34)
[2018-12-20] MEDS: TAMSULOSIN HCL 0.4 MG CAP PO SCH (09:05)
[2018-12-20] MEDS: FUROSEMIDE INJ 10 MG/ML 4 ML VIAL IV SCH ×2 (09:05→20:34)
[2018-12-20] MEDS: CLOPIDOGREL BISULFATE 75 MG TAB PO SCH (09:05)
[2018-12-20] MEDS: AMIODARONE HCL 200 MG TAB PO SCH (09:05)
[2018-12-20] MEDS: ALLOPURINOL 300 MG TAB PO SCH (09:06)
--- NOTE | 2018-12-20 10:55 | NUR ---
PATIENT OFF UNIT TO RADIOLOGY.
--- NOTE | 2018-12-20 11:04 | Diagnostic Imaging Report ---
EXAMINATION: CHEST 2 VIEWS INDICATION: CHF. COMPARISON: Chest radiograph 12/18/2018. FINDINGS: TUBES and LINES: Left left-sided AICD with leads in unchanged position. LUNGS: The lungs are moderately inflated. There is perihilar fullness and indistinctness of the pulmonary vasculature. There is left basilar opacity silhouetting the left tay diaphragm, likely atelectasis or alveolar edema. Mild patchy right basilar opacity. PLEURA: Moderate left pleural effusion. Small subpulmonic right pleural effusion. No evidence of pneumothorax. HEART AND MEDIASTINUM: Cardiomediastinal silhouette is stably enlarged. BONES AND SOFT TISSUES: No acute fracture or dislocation. UPPER ABDOMEN: No free air under the diaphragm. IMPRESSION: Persistent pulmonary edema, moderate left, and small right pleural effusions. Signed by: Dr. Spike Pelaez MD on 12/20/2018 11:01 AM
--- NOTE | 2018-12-20 11:21 | NUR ---
PATIENT BACK TO UNIT FROM RADIOLOGY, O2 IN PLACE VIA N/C. CALL LIGHT AT REACH.
--- NOTE | 2018-12-20 14:49 | NUR ---
ORDERS RECEIVED FOR P.T. EVAL AND ACUTE REHAB EVAL CHOICE LETTER GIVEN AND PT AND CHOSE [facility] WITH [facility] NOTIFIED OF CONSULT PT EVAL ORDERED ANTICIPATE TRANSFER TO ACUTE REHAB WHEN APPROVED BY INSURANCE
[2018-12-20] MEDS ORDERED: SODIUM CHLORIDE 0.9% 250ML 250 ML ONE (15:04)
--- NOTE | 2018-12-20 15:46 | NUR ---
DRESSING CHANGED TO SACRUM ORDERED, PATIENT TOLERATED PROCEDURE WELL. CATHETER AND ANNETTE CARE PROVIDED. IN BED WITH CALL LIGHT AT REACH.
[2018-12-20] MEDS: AZITHROMYCIN 500MG/NS 250 ML 250 ML IV SCH (15:53)
[2018-12-20] MEDS: BALSAM PERU/CASTOR OIL 5 GM OINT...G. TP SCH (15:53)
--- NOTE | 2018-12-20 16:26 | NUR ---
MOT INITIATED AND PLACED ON FRONT OF CHART
[2018-12-20] MEDS: CEFTRIAXONE SOD 1 GM/NS 50 ML 50 ML IV SCH (17:00)
[2018-12-20] MEDS ORDERED: RIVAROXABAN 10 MG TABLET PO SCH (17:00)
--- NOTE | 2018-12-20 18:00 | Progress Note ---
DATE: 12/20/2018 SUBJECTIVE: The patient reports some fatigue. He still has dyspnea on exertion. He is receiving Lasix. PHYSICAL EXAMINATION: VITAL SIGNS: The patient is afebrile. The blood pressure is 103/56 and the saturation is 92% on 3 liters. HEENT: Shows no facial swelling or erythema. The oropharynx is normal. LYMPHATIC: Shows no submandibular, cervical, or supraclavicular adenopathy. CARDIAC: Reveals regular rate and rhythm with normal S1 and S2. PULMONARY: Auscultation of lungs reveal crackles at both bases. There is no wheezing. ABDOMEN: Soft and nontender. There is no rebound or guarding. EXTREMITIES: Show no leg edema or calf tenderness. IMPRESSION: 1. Acute on chronic systolic congestive heart failure. 2. Recurrent left pleural effusion. 3. Atrial fibrillation. 4. Anemia, unspecified. 5. Human immunodeficiency virus with well-controlled counts. PLAN: 1. Continue IV diuresis. 2. Oxygen. 3. Continue to treat atrial fibrillation. 4. Possible transfer to rehab facility. Erickson Flower MD [facility]/JUSTINL /[id number]
--- NOTE | 2018-12-20 20:33 | NUR ---
vitals rechecked bp 115/61 mmhg, pr 73 b/min
[2018-12-20] MEDS: ATORVASTATIN 10 MG TAB PO SCH (20:34)
[2018-12-20] MEDS: ROPINIROLE HCL 0.25 MG TAB PO SCH (20:34)
--- NOTE | 2018-12-20 20:41 | Progress Note ---
DATE: 12/20/2018 Cardiology Progress Note SUBJECTIVE: The patient denies chest pain. He reports his shortness of breath is better. OBJECTIVE: VITAL SIGNS: Temperature 96 degrees, pulse 90, respiratory rate 20, blood pressure 103/66, oxygen 92%. GENERAL: Awake, alert, in no acute distress. LUNGS: Decreased breath sounds at the left base, otherwise clear to auscultation. CARDIOVASCULAR: Normal rate, regular rhythm. No murmur. Normal S1, S2. ABDOMEN: Soft, nontender. EXTREMITIES: 1+ pitting edema. CARDIAC MEDICATIONS: Xarelto 20 mg p.o. daily, Plavix 75 mg p.o. daily, furosemide 80 mg IV q.12 hours, amiodarone 200 mg p.o. daily, levothyroxine 50 mcg p.o. daily, atorvastatin 10 mg p.o. at bedtime, metoprolol succinate 25 mg p.o. daily. LABORATORY DATA: WBC 6.76, hemoglobin 9.8, hematocrit 29.1, platelets 266. Sodium 135, potassium 3.8, chloride 95, CO2 is 33, BUN 29, and creatinine 1.12. TELEMETRY: V paced. IMPRESSION: 1. Acute on chronic systolic heart failure status post BiV ICD. 2. Pleural effusion. 3. Coronary artery disease, status post LAD PCI in May 2018. 4. Atrial fibrillation/flutter, status post cardioversion in November of 2018. 5. Hypertension. 6. Hyperlipidemia. 7. HIV, on antiviral therapy. RECOMMENDATIONS: Continue IV diuretics. Monitor creatinine closely. Strict I's and O's and daily weights. Replete electrolytes. Continue current cardiac medications including antiplatelet therapy. Entresto was held due to hypotension, resume once blood pressure improves. Continue Xarelto for CVA prophylaxis. Monitor for signs and symptoms of bleeding. Monitor the patient closely on telemetry. Decision regarding repeat thoracentesis per Pulmonary. Thank you for this consult. We will continue to follow. Sveta Hilliard MD [facility]/MODL /[id number]
[2018-12-21] VITALS (7 sets, daily range): BP systolic 87–117; BP diastolic 51–62
[2018-12-21] MEDS: LEVOTHYROXINE SODIUM 50 MCG TAB PO SCH (05:17)
--- NOTE | 2018-12-21 07:05 | NUR ---
RCD PT AT BED PT IS ALERT AND CONFUSED PT RESTING ON BED NO SIGNS OF ANY DISTRESS NOTED IV PATENT BED LOW AND LOCKED CALL LIGHT IN REACH
[2018-12-21] MEDS: FAMOTIDINE 20 MG TAB PO SCH ×2 (07:30→16:30)
[2018-12-21 07:39] LABS: HEMATOCRIT 30.4 % (38.2-49.6); HEMOGLOBIN 10.2 g/dL (14.0-18.0); LYMPHOCYTES # (AUTO) 0.6 (1.0-3.2); LYMPHOCYTES % 6.2 % (18.0-39.1); MEAN CORPUSCULAR HEMOGLOBIN 36.6 pg (28-32); MEAN CORPUSCULAR HGB CONC 33.6 g/dL (31-35); MONOCYTES # (AUTO) 0.2 (0.2-0.8); MONOCYTES % 2.2 % (4.4-11.3); NEUTROPHILS # (AUTO) 8.1 (2.1-6.9); NEUTROPHILS % 91.3 % (38.7-80.0); PLATELET COUNT 301 x10e3/uL (140-360); RED BLOOD COUNT 2.79 x10e6/uL (4.3-5.7)
[2018-12-21 07:54] LABS: ANION GAP 13.1 mmol/L (8-16); CREATININE, SERUM 1.21 mg/dL (0.72-1.25); POTASSIUM 4.1 mmol/L (3.5-5.1)
[2018-12-21] MEDS: METOPROLOL SUCCINATE 25 MG TAB XL PO SCH (09:00)
[2018-12-21] MEDS: LAMIVUDINE PO SCH (09:00)
[2018-12-21] MEDS: ETRAVIRINE 200 MG PO SCH ×2 (09:00→16:43)
[2018-12-21] MEDS: [UNRECOGNIZED DRUG - OTHER] PO SCH ×2 (09:00→16:44)
[2018-12-21] MEDS: CLOPIDOGREL BISULFATE 75 MG TAB PO SCH (09:00)
[2018-12-21] MEDS: FUROSEMIDE INJ 10 MG/ML 4 ML VIAL IV SCH ×2 (09:00→23:00)
[2018-12-21] MEDS: MULTIVITAMINS/MINERALS TAB PO SCH (09:00)
[2018-12-21] MEDS: RITONAVIR 100 MG PO SCH (09:00)
[2018-12-21] MEDS: METHYLPREDNISOLONE SOD SUCC 40 MG/ML VIAL 1ML IV SCH ×2 (09:00→21:44)
[2018-12-21] MEDS: AMIODARONE HCL 200 MG TAB PO SCH (09:00)
[2018-12-21] MEDS: BALSAM PERU/CASTOR OIL 5 GM OINT...G. TP SCH (09:00)
[2018-12-21] MEDS: ZIDOVUDINE PO SCH (09:00)
[2018-12-21] MEDS: ALLOPURINOL 300 MG TAB PO SCH (09:00)
[2018-12-21] MEDS: DOCUSATE SODIUM 100 MG CAP PO SCH ×2 (09:00→16:43)
[2018-12-21] MEDS: TAMSULOSIN HCL 0.4 MG CAP PO SCH (09:00)
[2018-12-21 09:13] LABS: ANISOCYTOSIS SLIGHT; LYMPHOCYTES % (MANUAL) 8 % (19-48); METAMYELOCYTES % (MANUAL) 1 % (0-0); MONOCYTES % (MANUAL) 1 % (3.4-9.0); NEUTROPHILS % (MANUAL) 90 % (40-74); RBC MORPHOLOGY COMMENT ABNORMAL
[2018-12-21 09:14] LABS: PLATELET ESTIMATE ADEQUATE; PLATELET MORPHOLOGY COMMENT NORMAL
--- NOTE | 2018-12-21 10:00 | NUR ---
PT HAD BOWEL MOVEMENT CAME BACK AND PT SITTING ON THE CHAIR
--- NOTE | 2018-12-21 10:00 | NUR ---
DRESSING CHANGED ON LOWER SACRUM
--- NOTE | 2018-12-21 12:00 | NUR ---
BP90/[address] TROTTER NO NEW ORDERS
--- NOTE | 2018-12-21 13:34 | Progress Note ---
DATE: 12/21/2018 SUBJECTIVE: The patient feels slightly better than yesterday. He still has some dyspnea on exertion and some fatigue. PHYSICAL EXAMINATION: VITAL SIGNS: Stable. CARDIAC: Regular rate and rhythm with normal S1, S2. LUNGS: Auscultation of lungs shows decreased breath sounds on the left side. ABDOMEN: Soft, nontender. There is no rebound or guarding. EXTREMITIES: No leg edema or calf tenderness. There is no cyanosis or clubbing. SKIN: No rashes. NEUROLOGICAL: No focal abnormalities. IMPRESSION: 1. Acute on chronic systolic congestive heart failure. 2. Atrial fibrillation. 3. Recurrent left pleural effusion. PLAN: 1. Repeat x-ray tomorrow. 2. Consider repeat thoracentesis if symptoms worsen. 3. Continue current cardiac regimen. 4. Possible transfer to rehab. Erickson Flower MD [facility]/ANISH /[id number]
[2018-12-21] MEDS: AZITHROMYCIN 500MG/NS 250 ML 250 ML IV SCH (15:00)
--- NOTE | 2018-12-21 16:00 | NUR ---
PT C/O HEAD ACHE NOTIFIED DR TROTTER GOT NEW ORDERS AND NOTIFIED BP87/51 MM/HG
--- NOTE | 2018-12-21 16:29 | Progress Note ---
DATE: 12/21/2018 Cardiology Progress Note SUBJECTIVE: The patient denies chest pain or shortness of breath. OBJECTIVE: VITAL SIGNS: Temperature 97.9 degrees, pulse 89, respiratory rate 18, blood pressure 90/53, oxygen saturation 95% on 3 L nasal cannula. GENERAL: Awake, alert, no acute distress. LUNGS: Decreased breath sounds at left base, otherwise clear to auscultation. CARDIOVASCULAR: Normal rate, regular rhythm. No murmur. Normal S1, S2. ABDOMEN: Soft, nontender. EXTREMITIES: 1+ pitting edema. CARDIAC MEDICATIONS: Plavix 75 mg p.o. daily, furosemide 80 mg IV q.12 hours, metoprolol succinate 25 mg p.o. daily, amiodarone 200 mg p.o. daily, levothyroxine 50 mcg p.o. daily, atorvastatin 10 mg p.o. at bedtime, rivaroxaban 20 mg p.o. daily. LABORATORY DATA: WBC 8.82, hemoglobin 10.2, hematocrit 30.4, platelets 301. Sodium 139, potassium 4.1, chloride 97, CO2 33, BUN 35, and creatinine 1.21. BNP 217. Telemetry, V paced. IMPRESSION: 1. Acute on chronic systolic heart failure status post Bi-V ICD. 2. Pleural effusion. 3. Coronary artery disease, status post LAD, PCI in May 2018. 4. Atrial fibrillation/flutter status post cardioversion in November of 2018. 5. Hypertension. 6. Hyperlipidemia. 7. HIV on antiviral therapy. RECOMMENDATIONS: Continue current cardiac medications. Continue diuresis. Monitor creatinine closely. The patient's symptoms have improved, although his BNP is higher. We will monitor closely. Strict I's and O's as well as daily weights. Replete electrolytes. Continue current cardiac medications including anti-platelet therapy. Entresto on hold due to hypotension. Resume once blood pressure improves. Monitor for signs and symptoms of bleeding. Maintain patient on telemetry. Defer decision regarding thoracentesis to pulmonary next thank you for this consult. We will continue to follow. Sveta Hilliard MD [facility]/MODL /[id number] [facility]
[2018-12-21] MEDS: CEFTRIAXONE SOD 1 GM/NS 50 ML 50 ML IV SCH (16:43)
[2018-12-21] MEDS ORDERED: RIVAROXABAN 20 MG TABLET PO SCH (17:00)
[2018-12-21] MEDS ORDERED: HYDROCODONE/APAP 5MG-325MG TAB PO PRN (17:30)
--- NOTE | 2018-12-21 19:24 | NUR ---
PT RESTING ON BED BED SIDE REPORT GIVEN TO ONCOMING NURSE
--- NOTE | 2018-12-21 19:45 | NUR ---
Received patient from day nurse, patient is alert and oriented, safety and fall precautions maintained as per hospital protocol: bed in lowest position and locked, needed items at bed side and call lopez placed close to patient, bed alarm on patient, patient encouraged to use the call light at all times for help, verbalized understanding. patient is currently stable will continue to monitor. menjivar care done.
[2018-12-21] MEDS: ROPINIROLE HCL 0.25 MG TAB PO SCH (21:44)
[2018-12-21] MEDS: ATORVASTATIN 10 MG TAB PO SCH (21:44)
--- NOTE | 2018-12-21 22:13 | NUR ---
patient bp 94/60, DATA COLLECTOR Nando made aware of the bp and patient due 80mg lasix, ordered to give 40mg now and reheck bp later and see if patient bp is ok for the res of the lasix, if bp continues to stay down below 100 then hold the 40mg.
[2018-12-22] VITALS (8 sets, daily range): BP systolic 100–121; BP diastolic 54–78
[2018-12-22 04:56] LABS: BASOPHILS % 0.1 % (0.0-1.0); HEMATOCRIT 30.3 % (38.2-49.6); HEMOGLOBIN 10.3 g/dL (14.0-18.0); LYMPHOCYTES # (AUTO) 0.5 (1.0-3.2); LYMPHOCYTES % 3.7 % (18.0-39.1); MEAN CORPUSCULAR HEMOGLOBIN 36.7 pg (28-32); MEAN CORPUSCULAR VOLUME 107.8 fL (81-99); MONOCYTES # (AUTO) 0.2 (0.2-0.8); MONOCYTES % 1.5 % (4.4-11.3); NEUTROPHILS # (AUTO) 11.4 (2.1-6.9); NEUTROPHILS % 94.1 % (38.7-80.0); PLATELET COUNT 328 x10e3/uL (140-360); RED BLOOD COUNT 2.81 x10e6/uL (4.3-5.7); RED CELL DISTRIBUTION WIDTH 12.8 % (11.7-14.4)
[2018-12-22 04:58] LABS: ANION GAP 14.1 mmol/L (8-16); CALCIUM 9.2 mg/dL (8.4-10.2); CREATININE, SERUM 1.26 mg/dL (0.72-1.25); MAGNESIUM 2.3 MG/DL (1.3-2.1); PHOSPHORUS 3.5 MG/DL (2.3-4.7); POTASSIUM 4.1 mmol/L (3.5-5.1)
[2018-12-22] MEDS: LEVOTHYROXINE SODIUM 50 MCG TAB PO SCH (06:00)
--- NOTE | 2018-12-22 06:55 | NUR ---
Patient endorsed to next shift for continuity of care.
--- NOTE | 2018-12-22 07:00 | NUR ---
RCD PT AT BED PT IS ALERT AND ORIENTED PT RESTING ON BED NO SIGNS OF ANY DISTRESS NOTED IV PATENT BED LOW AND LOCKED CALL LIGHT IN REACH
--- NOTE | 2018-12-22 07:18 | Diagnostic Imaging Report ---
EXAMINATION: CHEST 2 VIEWS INDICATION: Pleural effusion. COMPARISON: Chest radiograph 12/20/2018. FINDINGS: TUBES and LINES: Left left-sided AICD with leads in unchanged position. LUNGS: The lungs are moderately inflated. There is perihilar fullness and indistinctness of the pulmonary vasculature. There is left basilar opacity silhouetting the left tay diaphragm, likely atelectasis or alveolar edema. Mild patchy right basilar opacity. PLEURA: Moderate left pleural effusion. Small subpulmonic right pleural effusion. No evidence of pneumothorax. HEART AND MEDIASTINUM: Cardiomediastinal silhouette is stably enlarged. BONES AND SOFT TISSUES: No acute fracture or dislocation. UPPER ABDOMEN: No free air under the diaphragm. IMPRESSION: Persistent pulmonary edema, moderate left, and small right pleural effusions. Signed by: Dr. Spike Pelaez MD on 12/22/2018 7:15 AM
[2018-12-22] MEDS: FAMOTIDINE 20 MG TAB PO SCH ×2 (07:30→16:30)
[2018-12-22] MEDS: CLOPIDOGREL BISULFATE 75 MG TAB PO SCH (09:00)
[2018-12-22] MEDS: [UNRECOGNIZED DRUG - OTHER] PO SCH ×2 (09:00→16:49)
[2018-12-22] MEDS: MULTIVITAMINS/MINERALS TAB PO SCH (09:00)
[2018-12-22] MEDS: AMIODARONE HCL 200 MG TAB PO SCH (09:00)
[2018-12-22] MEDS: ZIDOVUDINE PO SCH (09:00)
[2018-12-22] MEDS: METHYLPREDNISOLONE SOD SUCC 40 MG/ML VIAL 1ML IV SCH (09:00)
[2018-12-22] MEDS: DOCUSATE SODIUM 100 MG CAP PO SCH ×2 (09:00→16:48)
[2018-12-22] MEDS: METOPROLOL SUCCINATE 25 MG TAB XL PO SCH (09:00)
[2018-12-22] MEDS: ALLOPURINOL 300 MG TAB PO SCH (09:00)
[2018-12-22] MEDS: FUROSEMIDE INJ 10 MG/ML 4 ML VIAL IV SCH ×2 (09:00→21:16)
[2018-12-22] MEDS: BALSAM PERU/CASTOR OIL 5 GM OINT...G. TP SCH (09:00)
[2018-12-22] MEDS: LAMIVUDINE PO SCH (09:00)
[2018-12-22] MEDS: MAGNESIUM OXIDE 400 MG TAB PO SCH ×2 (09:00→16:49)
[2018-12-22] MEDS: RITONAVIR 100 MG PO SCH (09:00)
[2018-12-22] MEDS: TAMSULOSIN HCL 0.4 MG CAP PO SCH (09:00)
[2018-12-22] MEDS: ETRAVIRINE 200 MG PO SCH ×2 (09:00→16:48)
[2018-12-22] MEDS: ALBUTEROL/IPRATROPIUM 3 ML NEB INH PRN ×2 (10:55→20:00)
--- NOTE | 2018-12-22 11:29 | Progress Note ---
DATE: 12/22/2018 Pulmonary Critical Care Progress Note SUBJECTIVE: The patient still has some dyspnea. His chest x-ray shows a persistent left pleural effusion. PHYSICAL EXAMINATION: VITAL SIGNS: The patient is afebrile. The vital signs are stable. HEENT: Shows no facial swelling or erythema. Oropharynx is normal. LYMPHATIC: Shows no submandibular, cervical, or supraclavicular adenopathy. CARDIAC: Reveals regular rate and rhythm with a normal S1 and S2. LUNGS: Auscultation of lungs reveals decreased breath sounds at the left base. There are some crackles. ABDOMEN: Soft, nontender. There is no rebound or guarding. IMPRESSION: 1. Acute on chronic systolic congestive heart failure. 2. Atrial fibrillation. 3. Recurrent pleural effusion. PLAN: 1. Repeat thoracentesis tomorrow. 2. Continue current cardiac regimen. 3. Possible transfer to inpatient rehab. Erickson Flower MD [facility]/ANISH /[id number]
[2018-12-22] MEDS ORDERED: CHOLESTYRAMINE 4 GM PACKET PO PRN (12:00)
[2018-12-22] MEDS ORDERED: AMLODIPINE BESYLATE 10 MG TAB PO SCH (12:15)
[2018-12-22] MEDS: AZITHROMYCIN 500MG/NS 250 ML 250 ML IV SCH (15:00)
--- NOTE | 2018-12-22 15:54 | Progress Note ---
DATE: 12/22/2018 Cardiology Progress Note SUBJECTIVE: The patient denies chest pain or shortness of breath. OBJECTIVE: VITAL SIGNS: Temperature 95.4 degrees, pulse 83, respiratory rate 20, blood pressure 106/55, and oxygen saturation 97% on 3 L nasal cannula. GENERAL: Awake, alert, in no acute distress. LUNGS: Clear to auscultation bilaterally other than decreased breath sounds at the left base. CARDIOVASCULAR: Normal rate, regular rhythm. No murmur. Normal S1, S2. ABDOMEN: Soft, nontender. EXTREMITIES: 1+ pitting edema. CARDIAC MEDICATIONS: Plavix 75 mg p.o. daily, furosemide 80 mg IV q.12 hours, metoprolol succinate 25 mg p.o. daily, amiodarone 200 mg p.o. daily, atorvastatin 10 mg p.o. at bedtime, and levothyroxine 50 mcg p.o. daily. LABORATORY DATA: WBC 12.13, hemoglobin 10.3, hematocrit 30.3, platelets 328. Sodium 136, potassium 4.1, chloride 96, CO2 of 30, BUN 44, creatinine 1.26. TELEMETRY: V paced. IMPRESSION: 1. Acute on chronic systolic heart failure status post BiV ICD. 2. Pleural effusion. 3. Coronary artery disease status post LAD PCI in May 2018. 4. Atrial fibrillation/flutter status post cardioversion in November 2018. 5. Hypertension. 6. Hyperlipidemia. 7. Human immunodeficiency virus, on antiretroviral therapy. RECOMMENDATIONS: Continue diuresis. Monitor creatinine closely. The patient's symptoms have improved. Continue current cardiac medications including dual antiplatelet therapy. Entresto is currently on hold due to hypotension. Xarelto is currently held for possible procedure. Monitor for signs and symptoms of bleeding. Maintain the patient on telemetry. Thank you for this consult. We will continue to follow. Sveta Hilliard MD [facility]/MODL /[id number]
[2018-12-22] MEDS: CEFTRIAXONE SOD 1 GM/NS 50 ML 50 ML IV SCH (16:48)
--- NOTE | 2018-12-22 18:48 | NUR ---
PT RESTING ON BED BED SIDE REPORT GIVEN TO ONCOMING NURSE
[2018-12-22] MEDS: ATORVASTATIN 10 MG TAB PO SCH (21:16)
[2018-12-22] MEDS: ROPINIROLE HCL 0.25 MG TAB PO SCH (21:16)
[2018-12-23] VITALS (7 sets, daily range): BP systolic 97–115; BP diastolic 55–67
[2018-12-23 04:39] LABS: HEMATOCRIT 32.6 % (38.2-49.6); HEMOGLOBIN 10.9 g/dL (14.0-18.0); LYMPHOCYTES # (AUTO) 0.5 (1.0-3.2); LYMPHOCYTES % 4.2 % (18.0-39.1); MEAN CORPUSCULAR HEMOGLOBIN 36.2 pg (28-32); MEAN CORPUSCULAR HGB CONC 33.4 g/dL (31-35); MEAN CORPUSCULAR VOLUME 108.3 fL (81-99); MONOCYTES # (AUTO) 0.3 (0.2-0.8); MONOCYTES % 2.9 % (4.4-11.3); NEUTROPHILS # (AUTO) 9.8 (2.1-6.9); NEUTROPHILS % 92.2 % (38.7-80.0); PLATELET COUNT 323 x10e3/uL (140-360); RED BLOOD COUNT 3.01 x10e6/uL (4.3-5.7); RED CELL DISTRIBUTION WIDTH 13.1 % (11.7-14.4)
[2018-12-23 04:49] LABS: INR 1.21; PROTHROMBIN TIME 15.9 seconds (11.9-14.5)
[2018-12-23 04:56] LABS: CALCIUM 9.3 mg/dL (8.4-10.2); CREATININE, SERUM 1.77 mg/dL (0.72-1.25)
[2018-12-23] MEDS: LEVOTHYROXINE SODIUM 50 MCG TAB PO SCH (07:14)
[2018-12-23] MEDS: ALBUTEROL/IPRATROPIUM 3 ML NEB INH PRN ×4 (07:16→19:42)
--- NOTE | 2018-12-23 07:16 | NUR ---
patient endorsed to next shift for continuity of care.
--- NOTE | 2018-12-23 07:30 | NUR ---
REC'D PT AAOX3, ON 3L/MIN VIA NC, NO S/S OF DISTRESS, IV TO LEFT FA INTACT AND PATENT. SIDE RAILS UP X2, BED IN LOWEST POSITION, AND CALL SAMUEL WITHIN REACH.
[2018-12-23] MEDS ORDERED: PREDNISONE 20 MG TAB PO SCH (09:00)
[2018-12-23] MEDS: AMIODARONE HCL 200 MG TAB PO SCH (09:32)
[2018-12-23] MEDS: FAMOTIDINE 20 MG TAB PO SCH ×2 (09:32→16:06)
[2018-12-23] MEDS: FUROSEMIDE INJ 10 MG/ML 4 ML VIAL IV SCH ×2 (09:32→21:00)
[2018-12-23] MEDS: TAMSULOSIN HCL 0.4 MG CAP PO SCH (09:32)
[2018-12-23] MEDS: MULTIVITAMINS/MINERALS TAB PO SCH (09:33)
[2018-12-23] MEDS: MAGNESIUM OXIDE 400 MG TAB PO SCH ×2 (09:33→16:05)
[2018-12-23] MEDS: CLOPIDOGREL BISULFATE 75 MG TAB PO SCH (09:33)
[2018-12-23] MEDS: ALLOPURINOL 300 MG TAB PO SCH (09:33)
[2018-12-23] MEDS: METOPROLOL SUCCINATE 25 MG TAB XL PO SCH (09:33)
[2018-12-23] MEDS: ETRAVIRINE 200 MG PO SCH ×2 (09:35→16:02)
[2018-12-23] MEDS: [UNRECOGNIZED DRUG - OTHER] PO SCH ×2 (09:35→16:02)
[2018-12-23] MEDS: RITONAVIR 100 MG PO SCH (09:36)
[2018-12-23] MEDS: LAMIVUDINE PO SCH (09:36)
[2018-12-23] MEDS: ZIDOVUDINE PO SCH (09:36)
--- NOTE | 2018-12-23 10:26 | NUR ---
P.T. NOTES FAXED TO [facility] (NOT AVAILABLE SUNDAY) [phone] MARY NOTIFIED TO EXPEDITE AUTH PLAN: TRANSFER WHEN ACCEPTED
[2018-12-23 10:37] LABS: LYMPHOCYTES % (MANUAL) 7 % (19-48); MONOCYTES % (MANUAL) 5 % (3.4-9.0); NEUTROPHILS % (MANUAL) 88 % (40-74)
[2018-12-23 10:38] LABS: ANISOCYTOSIS S; PLATELET ESTIMATE ADEQUATE; PLATELET MORPHOLOGY COMMENT NORMAL; POIKILOCYTOSIS S; RBC MORPHOLOGY COMMENT NORMAL
[2018-12-23] MEDS: BALSAM PERU/CASTOR OIL 5 GM OINT...G. TP SCH (11:35)
--- NOTE | 2018-12-23 12:51 | NUR ---
NOTIFIED DR. TROTTER OF IR BEING UNABLE TO DO THORACENTESIS DUE TO PLAVIX NOT BEING ON HOLD FOR 4-5 DAYS. HE SAID OK AND NO ORDERS ORDERED. SAID HE CAN CON'T TO EAT.
--- NOTE | 2018-12-23 15:25 | Progress Note ---
DATE: 12/23/2018 SUBJECTIVE: The patient was unable to have thoracentesis with Radiology today because he has been on Plavix. He complains of worsening dyspnea and fatigue. PHYSICAL EXAMINATION: VITAL SIGNS: Blood pressure is 112/57 and the pulse is 92. He is 97% saturated on 3.5 L and his temperature is 96.5. HEENT: Shows no facial swelling or erythema. The oropharynx is normal. LYMPHATIC: Shows no submandibular cervical or supraclavicular adenopathy. CARDIAC: Reveals regular rate and rhythm with normal S1, S2. There are no murmurs or rubs. Auscultation of lungs shows decreased breath sounds on the left side. ABDOMEN: Soft, nontender. There is no rebound or guarding. EXTREMITIES: Show no leg edema or calf tenderness. There is no cyanosis or clubbing. SKIN: Shows no rashes. NEUROLOGICAL: Shows no focal abnormalities. IMPRESSION: 1. Yhggz-le-hhrzowo systolic congestive heart failure. 2. Recurrent left pleural effusion. 3. Atrial fibrillation. PLAN: 1. Hold Plavix and blood thinners. 2. The patient will require left-sided thoracentesis before discharge. 3. Continue physical therapy. 4. Continue oxygen. 5. Discuss further management with Dr. Sinha and Cardiology. Erickson Flower MD [facility]/JUSTINL /[id number]
--- NOTE | 2018-12-23 16:00 | NUR ---
PT COMPLAINED OF DISCOMFORT ON THE ROOF OF HIS MOUTH. ASSESSED MOUTH AND A RED RASH APPEARS ON THE ROOF OF THE MOUTH. NOTIFIED [employer]. NO ORDERS WERE GIVEN.
[2018-12-23] MEDS: CEFTRIAXONE SOD 1 GM/NS 50 ML 50 ML IV SCH (16:06)
--- NOTE | 2018-12-23 16:10 | NUR ---
STILL WAITING ON AUTH FOR [facility]
--- NOTE | 2018-12-23 18:00 | Progress Note ---
DATE: 12/23/2018 Cardiology Progress Note SUBJECTIVE: No major events overnight. Continues to cough. OBJECTIVE: VITAL SIGNS: Temperature afebrile, pulse 92, respiratory rate 20, blood pressure 112/57, and saturating 94% on nasal cannula. GENERAL: Elderly white man, in no acute distress. CARDIOVASCULAR: Regular rate and rhythm. No murmurs, rubs, or gallops. LUNGS: Bilateral respiratory wheezing. ABDOMEN: Soft, nontender, and nondistended. NEUROLOGIC AND PSYCHIATRIC: Alert and oriented to person, place, and time. Normal affect. INPATIENT MEDICATIONS: Reviewed. LABORATORY DATA: Reviewed. TELEMETRY DATA: Reviewed, shows normal sinus rhythm. ASSESSMENT: 1. Acute on chronic systolic congestive heart failure. 2. Recurrent left pleural effusion. 3. Atrial fibrillation. PLAN: Okay to hold blood thinners in preparation for thoracentesis. Continue cardiovascular medications otherwise. We will up titrate diuretics as tolerated by kidney function. Thank you for this consult. We will continue to follow. MD JOSE CARLOS [facility]/JUSTINL /[id number]
--- NOTE | 2018-12-23 18:17 | NUR ---
PATIENT IS SITTING UP IN BED WITH NASAL CANNULA. NO S/S OF DISTRESS. AT BEDSIDE. SIDE RAILS UP X2, BED IN LOWEST POSITION, AND CALL SAMUEL WITHIN REACH.
--- NOTE | 2018-12-23 19:00 | NUR ---
Received change of shift report from AM nurse. Walking rounds completed.
[2018-12-23] MEDS: ROPINIROLE HCL 0.25 MG TAB PO SCH (21:00)
[2018-12-23] MEDS: ATORVASTATIN 10 MG TAB PO SCH (21:00)
--- NOTE | 2018-12-23 21:00 | NUR ---
Patient AAOX3. Denies pain at this time. O2 on at 3.5 L IV intact to left FA. Continue monitor.
[2018-12-24] VITALS (8 sets, daily range): BP systolic 103–127; BP diastolic 56–74
--- NOTE | 2018-12-24 00:32 | NUR ---
PATIENT RESTING QUITLY AT THIS TIME WITH NO C/O NOTED.
[2018-12-24 04:13] LABS: HEMOGLOBIN 9.4 g/dL (14.0-18.0); LYMPHOCYTES # (AUTO) 0.6 (1.0-3.2); MEAN CORPUSCULAR HEMOGLOBIN 36.7 pg (28-32); MEAN CORPUSCULAR HGB CONC 33.6 g/dL (31-35); MEAN CORPUSCULAR VOLUME 109.4 fL (81-99); MONOCYTES # (AUTO) 0.4 (0.2-0.8); MONOCYTES % 4.5 % (4.4-11.3); NEUTROPHILS # (AUTO) 7.6 (2.1-6.9); PLATELET COUNT 274 x10e3/uL (140-360); RED BLOOD COUNT 2.56 x10e6/uL (4.3-5.7); RED CELL DISTRIBUTION WIDTH 13.1 % (11.7-14.4)
[2018-12-24 04:27] LABS: ANION GAP 11.9 mmol/L (8-16); CALCIUM 8.6 mg/dL (8.4-10.2); CREATININE, SERUM 1.58 mg/dL (0.72-1.25); MAGNESIUM 2.3 MG/DL (1.3-2.1); POTASSIUM 3.9 mmol/L (3.5-5.1)
[2018-12-24] MEDS: LEVOTHYROXINE SODIUM 50 MCG TAB PO SCH (05:27)
[2018-12-24] MEDS: ALBUTEROL/IPRATROPIUM 3 ML NEB INH PRN ×2 (07:12→13:10)
--- NOTE | 2018-12-24 07:30 | NUR ---
REC'D PT AAOX3 AND SITTING UP IN BED IN HIGH-FOWLERS POSITION. PATIENT ON NC RUNNING AT 3.5 L/MIN. DON IN PLACE. IV TO THE LEFT AC INTACT AND PATENT. BED IN LOWEST POSITION, CALL SAMUEL WITHIN PLACE, AND SIDE RAILS UPX2.
[2018-12-24] MEDS: FAMOTIDINE 20 MG TAB PO SCH ×2 (08:44→18:05)
[2018-12-24] MEDS: ALLOPURINOL 300 MG TAB PO SCH (08:45)
[2018-12-24] MEDS: TAMSULOSIN HCL 0.4 MG CAP PO SCH (08:45)
[2018-12-24] MEDS: PREDNISONE 10 MG TAB PO SCH (08:45)
[2018-12-24] MEDS: MAGNESIUM OXIDE 400 MG TAB PO SCH ×2 (08:45→18:05)
[2018-12-24] MEDS: MULTIVITAMINS/MINERALS TAB PO SCH (08:45)
[2018-12-24] MEDS: AMIODARONE HCL 200 MG TAB PO SCH (08:45)
[2018-12-24] MEDS: FUROSEMIDE INJ 10 MG/ML 4 ML VIAL IV SCH ×2 (08:45→20:51)
[2018-12-24] MEDS: RITONAVIR 100 MG PO SCH (08:46)
[2018-12-24] MEDS: [UNRECOGNIZED DRUG - OTHER] PO SCH ×2 (08:46→18:05)
[2018-12-24] MEDS: ETRAVIRINE 200 MG PO SCH ×2 (08:46→18:05)
[2018-12-24] MEDS: ZIDOVUDINE PO SCH (08:46)
[2018-12-24] MEDS: LAMIVUDINE PO SCH (08:46)
[2018-12-24] MEDS: METOPROLOL SUCCINATE 25 MG TAB XL PO SCH (08:49)
[2018-12-24] MEDS ORDERED: PREDNISONE 20 MG TAB PO SCH (09:00)
[2018-12-24] MEDS: BALSAM PERU/CASTOR OIL 5 GM OINT...G. TP SCH (11:18)
[2018-12-24] MEDS: CHLORHEXIDINE GLUCONATE 0.12% SOLN 473 ML BTL MT SCH ×3 (13:27→20:51)
--- NOTE | 2018-12-24 15:00 | NUR ---
DR. TROTTER SPOKE TO PATIENT ABOUT PERFORMING PATIENT AGREED TO PROCEDURE AT THE BEDSIDE. SIGNED CONSENT. DR. TROTTER PERFORMED THORACENTESIS. PATIENT TOLERATED WELL. NO S/S OF DISTRESS. X-RAY ORDERED.
[2018-12-24] MEDS ORDERED: LIDOCAINE HCL 1% 2 ML AMP INJ ONE (15:15)
--- NOTE | 2018-12-24 15:42 | NUR ---
PT DENIED [facility] DUE TO WILL NOT COVER EXPENSE OF THORACENTESIS OP WHILE INPT AT THEIR FACILITY.
[2018-12-24] MEDS ORDERED: LIDOCAINE HCL 2% LOCAL 20 ML VIAL INJ ONE (15:45)
--- NOTE | 2018-12-24 16:03 | NUR ---
JUAN SPOKE WITH SONNY ([phone]) TO DISCUSS NEED FOR PATIENT RETURN TO HOSPITAL FOR THORACENTESIS. SHE STATES [facility] WILL NOT BE ABLE TO ACCEPT THE PATIENT UNTIL AFTER PROCEDURE IS COMPLETE. JUAN WILL NOTIFY MD TEAM.
--- NOTE | 2018-12-24 16:14 | Diagnostic Imaging Report ---
EXAMINATION: CHEST SINGLE (PORTABLE) INDICATION: Status post thoracentesis, assessment for pneumothorax COMPARISON: None FINDINGS: TUBES and LINES: Left chest AICD, leads in unchanged position. EKG leads overlie the chest. LUNGS: The lung volumes are low. There is perihilar fullness and indistinctness of the pulmonary vasculature. Patchy opacity at the left lung base silhouettes the left hemidiaphragm. Patchy opacities at the right lung base. PLEURA: Small bilateral left greater than right pleural effusions. No pneumothorax. HEART AND MEDIASTINUM: Unchanged cardiomegaly. Atherosclerotic calcifications of the thoracic aorta. BONES AND SOFT TISSUES: No acute fracture or dislocation. Degenerative changes of both glenohumeral joints. UPPER ABDOMEN: No free air under the diaphragm. IMPRESSION: Unchanged cardiomegaly and pulmonary interstitial and air space edema. Patchy opacities at both lung bases, left greater than right, likely represent subsegmental atelectasis superimposed on airspace edema. Small left greater than right pleural effusions. No pneumothorax. Signed by: Deepa Cooper MD on 12/24/2018 4:10 PM
--- NOTE | 2018-12-24 16:21 | Progress Note ---
DATE: 12/24/2018 Cardiology Progress Note SUBJECTIVE: No major events overnight. Thoracentesis pending today. OBJECTIVE: VITAL SIGNS: Temperature afebrile, pulse 91, respiratory rate 18, blood pressure 127/69, and saturating 95% on room air. GENERAL: Elderly white man, in no acute distress. CARDIOVASCULAR: Regular rate and rhythm. No murmurs, rubs, or gallops. LUNGS: Scattered wheezing. Decreased breath sounds in bilateral bases. ABDOMEN: Soft, nontender, and nondistended. NEURO AND PSYCH: Alert and oriented to person, place, and time. Normal affect. INPATIENT MEDICATIONS: Reviewed. LABORATORY DATA: Reviewed. TELEMETRY DATA: Reviewed, shows normal sinus rhythm, paced. ASSESSMENT AND PLAN: 1. Awlkx-rf-lpguhnq systolic congestive heart failure. 2. Recurrent left pleural effusions. 3. Atrial fibrillation. PLAN: Blood thinners being held for thoracentesis. Please resume his Plavix and Xarelto once thoracentesis completed. Okay to stop aspirin. Given history of nosebleeds at home on triple therapy, his stent was in May 2018, so safe to stop aspirin only and continue Plavix and Xarelto at this point. Thank you for this consult. We will continue to follow. MD JOSE CARLOS Arriola/ANISH /[id number]
[2018-12-24] MEDS: NYSTATIN SUSPENSION 5 ML UDC PO SCH (18:05)
[2018-12-24] MEDS: CEFTRIAXONE SOD 1 GM/NS 50 ML 50 ML IV SCH (18:05)
--- NOTE | 2018-12-24 18:36 | Consultation ---
DATE OF CONSULTATION: 12/24/2018 Hospital Consultation HISTORY OF PRESENT ILLNESS: I was kindly asked to see this 73-year-old man for evaluation of oral cavity abnormalities. The patient has no previous oral cavity problems until approximately 36 hours prior to consultation when he developed a sensation of a "risen" on the back part of his throat. His had noticed lesions along the back part of his throat and the patient had a sensation that they were increasing in size. His history of present illness, past medical history, and past surgical history were all reviewed in detail in the chart. PHYSICAL EXAMINATION: On examination, the patient had a hearing aid in the right ear. There is a moderate amount of cerumen in the right external auditory canal. The visualized portion of the tympanic membrane was normal. There was minimal cerumen in the left external auditory canal. The tympanic membrane was unremarkable and a mild S shaped nasal septal deviation. He was using nasal prong oxygen and there was a small amount of crusting anteriorly, but no clinically significant pathology was noted. Oral cavity examination showed poor dentition. He had minimal postnasal drainage. It was candidiasis on the soft palate extending to the hard palate region. There was no palpable cervical adenopathy. ASSESSMENT: 1. Oral candidiasis. 2. Stomatitis. PLAN: 1. Diflucan 100 mg p.o. daily. 2. Nystatin 5 mg swish and swallow q.i.d. Thank you very much. MD DARCI Tsai/MODL /[id number]
--- NOTE | 2018-12-24 18:55 | NUR ---
PATIENT IS RESTING IN BED WITH EYES CLOSED. CHEST IS RISING UP AND DOWN EFFORTLESSLY. NO S/S OF DISTRESS. 4L OF OXYGEN DELIVERED VIA NC. SIDE RAILS UP X2, BED IN LOWEST POSITION, AND CALL SAMUEL WITHIN REACH.
--- NOTE | 2018-12-24 19:25 | NUR ---
Patient received sitting up in bed. AAO x 3. Patient had no c/o pain. Respirations even and non-labored on 3L NC. Matta catheter draining pale clear yellow urine . Telemetry in place recording rhythm as V-paced at 100. Bed locked and in lowest position . Bed rails up x 2. Patient instructed to call for assistance when needed. Call light within reach.
--- NOTE | 2018-12-24 20:21 | Operative Report ---
DATE OF PROCEDURE: 12/24/2018 SURGEON: Erickson Flower MD PROCEDURE: Ultrasound-guided thoracentesis. PREOPERATIVE DIAGNOSIS: Left pleural effusion. POSTOPERATIVE DIAGNOSIS: Left pleural effusion secondary to congestive heart failure. CONSENT: Obtained from the patient. ANESTHESIA: A 2% lidocaine for local anesthesia. DESCRIPTION OF PROCEDURE: The left posterior thorax was prepped sterilely. An ultrasound machine was used to visualize the fluid in the pleural space. There were no loculations, no masses. The area over the 7th posterior rib was subsequently anesthetized. A small incision was made and a 16-gauge needle was advanced into the pleural space. The catheter was advanced over the needle by the Seldinger technique. 1185 mL of serosanguineous fluid was subsequently removed. COMPLICATIONS: None. ESTIMATED BLOOD LOSS: None. Erickson Flower MD LMH/MODL /[id number]
[2018-12-24] MEDS: ROPINIROLE HCL 0.25 MG TAB PO SCH (20:51)
[2018-12-24] MEDS: ATORVASTATIN 10 MG TAB PO SCH (20:51)
[2018-12-25] VITALS: BP 119/69
[2018-12-25] MEDS: NYSTATIN SUSPENSION 5 ML UDC PO SCH ×3 (03:13→11:47)
[2018-12-25 04:00] VITALS: BP 107/60
[2018-12-25] MEDS: LEVOTHYROXINE SODIUM 50 MCG TAB PO SCH (05:35)
[2018-12-25 08:27] VITALS: BP 125/75
[2018-12-25] MEDS: FAMOTIDINE 20 MG TAB PO SCH (08:30)
[2018-12-25] MEDS: [UNRECOGNIZED DRUG - OTHER] PO SCH (09:00)
[2018-12-25] MEDS: LAMIVUDINE PO SCH (09:00)
[2018-12-25] MEDS: ZIDOVUDINE PO SCH (09:00)
[2018-12-25] MEDS: RITONAVIR 100 MG PO SCH (09:00)
[2018-12-25] MEDS: ETRAVIRINE 200 MG PO SCH (09:00)
[2018-12-25] MEDS ORDERED: FLUCONAZOLE 100 MG TAB PO SCH (09:00)
[2018-12-25] MEDS: TAMSULOSIN HCL 0.4 MG CAP PO SCH (09:27)
[2018-12-25] MEDS: MAGNESIUM OXIDE 400 MG TAB PO SCH (09:27)
[2018-12-25] MEDS: FUROSEMIDE INJ 10 MG/ML 4 ML VIAL IV SCH (09:27)
[2018-12-25] MEDS: CHLORHEXIDINE GLUCONATE 0.12% SOLN 473 ML BTL MT SCH ×2 (09:27→13:51)
[2018-12-25] MEDS: CLOPIDOGREL BISULFATE 75 MG TAB PO SCH (09:27)
[2018-12-25] MEDS: MULTIVITAMINS/MINERALS TAB PO SCH (09:27)
[2018-12-25] MEDS: PREDNISONE 10 MG TAB PO SCH (09:27)
[2018-12-25] MEDS: AMIODARONE HCL 200 MG TAB PO SCH (09:27)
[2018-12-25] MEDS: METOPROLOL SUCCINATE 25 MG TAB XL PO SCH (09:28)
[2018-12-25] MEDS: ALLOPURINOL 300 MG TAB PO SCH (09:28)
[2018-12-25 10:26] VITALS: BP 125/75
[2018-12-25] MEDS: BALSAM PERU/CASTOR OIL 5 GM OINT...G. TP SCH (10:30)
--- NOTE | 2018-12-25 11:00 | NUR ---
REPORT CALLED TO TONY YANEZ AT [facility] AT THIS TIME. IV TO STAY IN PLACE FOR IV MEDICATIONS.
[2018-12-25 11:37] VITALS: BP 119/73
--- NOTE | 2018-12-25 13:46 | Progress Note ---
DATE: 12/25/2018 Pulmonary and Critical Care Progress Note SUBJECTIVE: The patient reports some improvement in dyspnea since yesterday, but still feels fatigued. He does not complain of fever. He is awaiting possible transfer to the rehab facility. PHYSICAL EXAMINATION: VITAL SIGNS: The blood pressure is 119/73 and the saturation is 100%. The patient is afebrile. The pulse is 87. HEENT: No facial swelling or erythema. Oropharynx is normal. LYMPHATIC: No submandibular, cervical, or supraclavicular adenopathy. CARDIAC: Reveals a regular rate and rhythm with normal S1 and S2. There are no murmurs or rubs. LUNGS: Auscultation of lungs reveals decreased breath sounds at the bases. ABDOMEN: Soft, nontender. There is no rebound or guarding. EXTREMITIES: No leg edema or calf tenderness. IMPRESSION: 1. Vzgcc-ao-ajvhzdr systolic congestive heart failure. 2. Atrial fibrillation. PLAN: 1. Continue current cardiac regimen. 2. Transfer to inpatient rehab. MD KAREN Foster/ANISH /[id number]
--- NOTE | 2018-12-25 14:50 | NUR ---
RECEIVED DC ORDER FROM JULIO BARBER FOR PATIENT TO BE TRANSFERRED TO [facility]. PATIENT IS IN STABLE CONDITION. NO ACUTE DISTRESS NOTED. IV LINE TO LEFT FOREARM IS IN PLACE AND PATENT, PATIENT IS TO RECEIVED IV MEDICATIONS AT FACILITY. ODN CATHETER IN PLACE FOR RETENTION, PER DR. FONTANA PATIENT IS TO BED DCD WITH DON. TRANSFER PAPERWORK GIVEN TO EMS PERSONNEL. PATIENT TRANSFERRED TO FACILITY VIA EMS.
--- NOTE | 2018-12-25 19:22 | Progress Note ---
DATE: 12/25/2018 Cardiology Progress Note SUBJECTIVE: At thoracentesis, feels better. Plan for discharge to inpatient rehab. OBJECTIVE: VITAL SIGNS: Temperature afebrile, pulse 87, respiratory rate 20, blood pressure 119/73, and saturating 100% on nasal cannula. GENERAL: Elderly man, in no acute distress. CARDIOVASCULAR: Regular rate and rhythm. No murmurs, rubs, or gallops. LUNGS: Scattered wheezing. Improved breath sounds at the bases post thoracentesis. ABDOMEN: Soft, nontender, and nondistended. NEURO AND PSYCH: Alert and oriented to person, place, and time. Normal affect. INPATIENT MEDICATIONS: Reviewed. LABORATORY DATA: Reviewed. TELEMETRY DATA: Reviewed. Remains in normal sinus rhythm with ventricularly paced rhythm. ASSESSMENT AND PLAN: 1. Emqio-tw-dmixyso systolic congestive heart failure. 2. Recurrent left pleural effusion. 3. Atrial fibrillation. PLAN: Resume Plavix and Xarelto post thoracentesis. Stop aspirin. Increase home diuretic dose from 40 mg daily to 40 mg b.i.d. of Lasix. Okay to discharge to inpatient rehab. Follow up with Dr. Ash Felipe one week post discharge from inpatient rehab. Thank you for this consult. We will continue to follow. MD JOSE CARLOS Arriola/JUSTINL /[id number]
--- NOTE | 2018-12-26 21:22 | Discharge Summary ---
ADMISSION DIAGNOSES: Ovtyy-aj-iesugaw systolic congestive heart failure, acute exacerbation of chronic obstructive pulmonary disease, dlonx-mz-zmatned respiratory failure, atrial fibrillation, human immunodeficiency virus, hypertension complicated by coronary artery disease and chronic systolic congestive heart failure, hypothyroidism. DISCHARGE DIAGNOSES: Sbuvi-sb-ygwjgbw systolic congestive heart failure, acute exacerbation of chronic obstructive pulmonary disease, qmfjh-ux-rnvzxsh respiratory failure, atrial fibrillation, human immunodeficiency virus, hypertension complicated by coronary artery disease and chronic systolic congestive heart failure, hypothyroidism, oral candidiasis, stomatitis. HISTORY: The patient has a history of HIV, hypertension with CAD status post stents, chronic systolic CHF, severe COPD, O2 dependent with chronic respiratory failure, atrial fibrillation, hypothyroidism. SURGICAL HISTORY: Kidney stones, AICD, gallbladder. FAMILY HISTORY: Noncontributory. SOCIAL HISTORY: Noncontributory. HOSPITAL COURSE: A 73-year-old male with CHF and COPD sent from Pulmonary office with shortness of breath. He was recently discharged for the same. On admission, the patient was started on Lasix 80 mg q.12 and Zithromax and Merrem IV. The patient had an ultrasound-guided thoracentesis on 12/18 with 1200 mL serous fluid pulled from the left pleura. Chest x-ray on the then showed persistent pulmonary edema, moderate left and small right pleural effusion. The patient then had an additional left-sided thoracentesis with a 1185 serosanguineous fluid removed. Due to complaints of an oral rash, ENT was consulted. He recommended Diflucan daily and nystatin q.i.d. for oral candidiasis and stomatitis. Blood cultures were negative. Thoracentesis culture negative. Per Cardiology recommendation, the patient will continue Plavix and Xarelto for CAD with stents and atrial fibrillation, but he no longer needs the aspirin. The patient will discharge to [facility] for close followup and more physical therapy. The patient and understand discharge instructions and agrees to plan. Vital signs stable. The patient afebrile. Dictated by Temi Arshad NP MD KATELIN Pleitez/ANISH /[id number]
== END 2018-12-25 14:50 | DRG 974 ==
LOC: IMCU 12:40 → OBSVTOIN 12-19 08:05 → MED/SURG3 12-19 21:07
PROVIDERS: ADMIT Internal Medicine; ATTEND Internal Medicine
PROC: 0W9B3ZX Drainage of Left Pleural Cavity, Percutaneous Approach, Diagnostic (ICD-10-PCS; 2018-12-18)
PROC: 0W9B3ZZ Drainage of Left Pleural Cavity, Percutaneous Approach (ICD-10-PCS; principal; 2018-12-24)
DX: B20 Human immunodeficiency virus [HIV] disease (principal); J18.9 Pneumonia, unspecified organism; J96.20 Acute and chronic respiratory failure, unspecified whether with hypoxia or hypercapnia; I50.23 Acute on chronic systolic (congestive) heart failure; I67.850 Cerebral autosomal dominant arteriopathy with subcortical infarcts and leukoencephalopathy; I48.92 Unspecified atrial flutter; J90 Pleural effusion, not elsewhere classified; J44.1 Chronic obstructive pulmonary disease with (acute) exacerbation; N17.9 Acute kidney failure, unspecified; B37.0 Candidal stomatitis; I13.0 Hypertensive heart and chronic kidney disease with heart failure and stage 1 through stage 4 chronic kidney disease, or unspecified chronic kidney disease; I48.91 Unspecified atrial fibrillation; E78.5 Hyperlipidemia, unspecified; Z95.5 Presence of coronary angioplasty implant and graft; Z99.81 Dependence on supplemental oxygen; E03.9 Hypothyroidism, unspecified; Z87.442 Personal history of urinary calculi; Z95.810 Presence of automatic (implantable) cardiac defibrillator; K12.1 Other forms of stomatitis; D64.9 Anemia, unspecified; N40.1 Benign prostatic hyperplasia with lower urinary tract symptoms; R33.8 Other retention of urine; N18.9 Chronic kidney disease, unspecified
CPT/HCPCS: 32555; 36415; 51700; 71045; 71046; 80048; 80053; 81001; 82550; 82553; 82948; 83605; 83615; 83735; 83880; 84100; 84157; 84484; 85025; 85610; 85730; 87040; 87070; 87086; 87205; 88112; 88305; 89051; 93005; 94640; 97139; 99284; G0378; J0456; J0696; J1940; J2001; J2920; J7050; J7512